=== PATIENT | female | born 1955 | race Caucasian/White ===

== ENCOUNTER → 2017-12-23 | Outpatient (CLI) | payer MEDICARE ==
--- NOTE | 2017-12-24 17:10 | PE ---
EXAMINATION TYPE: PET CT fusion whole body DATE OF EXAM: 12/23/2017 COMPARISON: CT chest abdomen pelvis 06/14/2017, MRI brain 06/13/2017, Prior PET/CT: None HISTORY: Melanoma left trunk under breast TECHNIQUE: Following the intravenous administration of 14.763 mCi of F-18 FDG, whole body images are performed from the skull base to the midthigh. Images are reviewed on the computer in the coronal, axial, and sagittal planes. Reconstructed rotating images are created on independent workstation and reviewed on the computer. A localization and attenuation correction CT is performed in conjunction with the PET scan. DLP: 469.24 and 132.98 mGycm SCAN: Subsequent Blood glucose: 159 mg/dL Average Mediastinum SUV: 1.66 Average Liver SUV: 1.98 FINDINGS: Brain: The rotating images there is some radiotracer accumulation in the region of the medial inferio r occipital lobes. NECK: No abnormal uptake THORAX: No abnormal uptake. Suspicious subcutaneous uptake in the region of the inferior thorax in th e region of the left breast which is the location of the patient's primary is not identified. ABDOMEN: No abnormal uptake PELVIS: No abnormal uptake Legs: No abnormal uptake OSSEOUS STRUCTURES: No abnormal uptake LOCALIZATION CT: There is moderate fatty infiltration of the liver. Hepatomegaly is present. CT of th e brain is visualized appears normal. The ascending thoracic aorta at the level the main pulmonary ar rachel is 3.3 cm. The main pulmonary artery the bifurcation is 2.4 cm. Shotty lymphadenopathy is within the mediastinum COMPARISON: Uptake within the reference lymph node in the abdomen is not enlarged by CT criteria kaila ures 1.16 SUV. Suspicious changes corresponding to the uptake on the PET scan within the occipital re gions is not evident on the MRI. IMPRESSION: 1. No suspicious uptake to suggest metastatic disease. 2. Some mild asymmetric activity within the occipital regions of the brain may be related to normal b rain activity during the time of the injection.
== END | disposition home or self-care (01) ==
LOC: RADPETMAIN 12:30
PROVIDERS: ATTEND Internal Medicine Hematology & Oncology
DX: C43.59 Malignant melanoma of other part of trunk (principal); R93.0 Abnormal findings on diagnostic imaging of skull and head, not elsewhere classified
CPT/HCPCS: 78816; A9552

== ENCOUNTER 2018-01-25 08:42 | Inpatient (IN) | payer MEDICARE ==
[2018-01-25] MEDS ORDERED: IPRATROPIUM-ALBUTEROL 3 ML NEB INHALATION STA (08:50)
[2018-01-25] MEDS ORDERED: methylPREDNISolone SOD SUCCI 125 MG/2 ML VIAL IV STA (08:50)
--- NOTE | 2018-01-25 09:09 | ED ---
General Adult HPI - General Chief complaint: Shortness of Breath Stated complaint: SOB Time Seen by Provider: 01/25/18 08:49 Source: patient, RN notes reviewed, old records reviewed Mode of arrival: wheelchair Limitations: no limitations - History of Present Illness Initial comments: This is a 8-year-old female the ER for evaluation. Patient presents for evaluation regards to difficulty breathing. Patient is transferred to care for evaluation by oncology. They state patient receives going through chemotherapy could cause shortness of breath. Patient states she's had a few days of shortness of breath was scheduled for chest x-ray was unable to get the chest x- ray blood presented to her doctor's office and sent to ER for further evaluation. Denies any specific pain - Related Data Home Medications Medication Instructions Recorded Confirmed ALPRAZolam [Xanax] 2 mg PO TID PRN 11/15/17 01/25/18 Digoxin 250 mcg PO DAILY 11/15/17 01/25/18 Escitalopram [Lexapro] 20 mg PO DAILY 11/15/17 01/25/18 HYDROcodone/APAP 5-325MG [[place] 1 tab PO Q6HR PRN 11/15/17 01/25/18 5-325] L.acidoph,Paracasei, B.lactis 1 cap PO DAILY 11/15/17 01/25/18 [Probiotic] Multivitamins, Thera [Multivitamin 1 tab PO DAILY 11/15/17 01/25/18 (formulary)] Temazepam [Restoril] 15 mg PO HS 11/15/17 01/25/18 Calcium Carbonate/Vitamin D3 1 tab PO DAILY 01/25/18 01/25/18 [Calcium 600-Vit D3 200 Tablet] Hydrocortisone Cream 1 applic TOPICAL BID 01/25/18 01/25/18 [Hydrocortisone 2.5% Cream] Magnesium 200 mg PO DAILY 01/25/18 01/25/18 Potassium 99 mg PO DAILY 01/25/18 01/25/18 Turmeric Root Extract [Turmeric] 500 mg PO DAILY 01/25/18 01/25/18 Ubidecarenone [Co Q-10] 100 mg PO DAILY 01/25/18 01/25/18 Allergies Allergy/AdvReac Type Severity Reaction Status Date / Time adhesive tape Allergy skin tear Verified 01/25/18 09:18 codeine Allergy Nausea Verified 01/25/18 09:18 morphine Allergy Nausea Verified 01/25/18 09:18 Review of Systems ROS Statement: Those systems with pertinent positive or pertinent negative responses have been documented in the HPI. ROS Other: All systems not noted in ROS Statement are negative. Past Medical History Past Medical History: Cancer, Fibromyalgia, Osteoarthritis (OA), Skin Disorder Additional Past Medical History / Comment(s): hx migraine, irregular heat beat, blood in stool, melanoma, hx skin cancer History of Any Multi-Drug Resistant Organisms: None Reported Past Surgical History: Orthopedic Surgery, Tubal Ligation Additional Past Surgical History / Comment(s): skin cancer removed from back, melanoma removed from under left breast, sinus surgery, tow donor bones in neck , key carpal tunnel, left rotator cuff, infusaport to right chest Past Anesthesia/Blood Transfusion Reactions: Motion Sickness Past Psychological History: Depression Smoking Status: Former smoker - Past Family History Father Family Medical History: Cancer General Exam Limitations: no limitations General appearance: alert, in no apparent distress Head exam: Present: atraumatic, normocephalic, normal inspection Eye exam: Present: normal appearance, PERRL, EOMI. Absent: scleral icterus, conjunctival injection, periorbital swelling ENT exam: Present: normal exam, mucous membranes moist Neck exam: Present: normal inspection. Absent: tenderness, meningismus, lymphadenopathy Respiratory exam: Present: normal lung sounds bilaterally, wheezes, decreased breath sounds, prolonged expiratory. Absent: respiratory distress, rales, rhonchi, stridor Cardiovascular Exam: Present: regular rate, normal rhythm, normal heart sounds. Absent: systolic murmur, diastolic murmur, rubs, gallop, clicks GI/Abdominal exam: Present: soft, normal bowel sounds. Absent: distended, tenderness, guarding, rebound, rigid Extremities exam: Present: normal inspection, full ROM, normal capillary refill. Absent: tenderness, pedal edema, joint swelling, calf tenderness Back exam: Present: normal inspection Neurological exam: Present: alert, oriented X3, CN II-XII intact Psychiatric exam: Present: normal affect, normal mood Skin exam: Present: warm, dry, intact, normal color. Absent: rash Course Vital Signs 01/25/18 01/25/18 01/25/18 08:49 09:32 09:46 Temperature 98.2 F Pulse Rate 93 87 90 Respiratory 22 20 Rate Blood Pressure 137/66 O2 Sat by Pulse 92 L Oximetry - Reevaluation(s) Reevaluation #1: 01/25/18 09:50 Spoke with patient's oncologist, aware patient's medication and treatment, low pulse ox in office Reevaluation #2: 01/25/18 11:21 Patient again with mild improvement in breathing treatment, diffuse pain EKG Findings - EKG Comments: EKG Findings:: EKG shows sinus rhythm rate of 94, PA 14, QRS 94, QTc 465 Medical Decision Making - Medical Decision Making 62 female the ER for evaluation of shortness of breath. Patient undergoing chemo treatment currently. Bilateral pleural effusion currently. Patient to be admitted for evaluation regarding symptomatic effusion. Hypoxia. - Lab Data Result diagrams: 01/25/18 09:20 01/25/18 09:20 Lab Results 01/25/18 01/25/18 01/25/18 Range/Units 09:20 09:20 09:20 WBC 8.5 (3.8-10.6) k/uL RBC 4.75 (3.80-5.40) m/uL Hgb 15.0 (11.4-16.0) gm/dL Hct 46.7 H (34.0-46.0) % MCV 98.3 D (80.0-100.0) fL MCH 31.6 (25.0-35.0) pg MCHC 32.1 (31.0-37.0) g/dL RDW 18.0 H (11.5-15.5) % Plt Count 290 (150-450) k/uL Neutrophils % (Manual) 56 % Lymphocytes % (Manual) 11 % Monocytes % (Manual) 19 % Eosinophils % (Manual) 14 % Neutrophils # (Manual) 4.76 (1.3-7.7) k/uL Lymphocytes # (Manual) 0.94 L (1.0-4.8) k/uL Monocytes # (Manual) 1.62 H (0-1.0) k/uL Eosinophils # (Manual) 1.19 H (0-0.7) k/uL Nucleated RBCs 0 (0-0) /100 WBC Manual Slide Review Performed Hypochromasia Slight Poikilocytosis (manual Present Anisocytosis Slight Macrocytosis Slight Target Cells Present PT (9.0-12.0) sec INR (<1.2) APTT (22.0-30.0) sec D-Dimer (<0.60) mg/L FEU Sodium 138 (137-145) mmol/L Potassium 3.7 (3.5-5.1) mmol/L Chloride 102 (98-107) mmol/L Carbon Dioxide 29 (22-30) mmol/L Anion Gap 7 mmol/L BUN 14 (7-17) mg/dL Creatinine 0.58 (0.52-1.04) mg/dL Est GFR (CKD-EPI)AfAm >90 (>60 ml/min/1.73 sqM) Est GFR (CKD-EPI)NonAf >90 (>60 ml/min/1.73 sqM) Glucose 91 (74-99) mg/dL Calcium 8.9 (8.4-10.2) mg/dL Magnesium 2.2 (1.6-2.3) mg/dL Total Bilirubin 14.5 H (0.2-1.3) mg/dL AST 1964 H (14-36) U/L ALT 260 H (9-52) U/L Alkaline Phosphatase 496 H (38-126) U/L Total Creatine Kinase 65 (30-135) U/L CK-MB (CK-2) 2.8 H* (0.0-2.4) ng/mL CK-MB (CK-2) Rel Index 4.3 Troponin I 0.014 (0.000-0.034) ng/mL NT-Pro-B Natriuret Pep pg/mL Total Protein 6.4 (6.3-8.2) g/dL Albumin 2.7 L (3.5-5.0) g/dL 01/25/18 01/25/18 Range/Units 09:20 09:20 WBC (3.8-10.6) k/uL RBC (3.80-5.40) m/uL Hgb (11.4-16.0) gm/dL Hct (34.0-46.0) % MCV (80.0-100.0) fL MCH (25.0-35.0) pg MCHC (31.0-37.0) g/dL RDW (11.5-15.5) % Plt Count (150-450) k/uL Neutrophils % (Manual) % Lymphocytes % (Manual) % Monocytes % (Manual) % Eosinophils % (Manual) % Neutrophils # (Manual) (1.3-7.7) k/uL Lymphocytes # (Manual) (1.0-4.8) k/uL Monocytes # (Manual) (0-1.0) k/uL Eosinophils # (Manual) (0-0.7) k/uL Nucleated RBCs (0-0) /100 WBC Manual Slide Review Hypochromasia Poikilocytosis (manual Anisocytosis Macrocytosis Target Cells PT 16.5 H (9.0-12.0) sec INR 1.8 H (<1.2) APTT 74.7 H (22.0-30.0) sec D-Dimer 2.98 H (<0.60) mg/L FEU Sodium (137-145) mmol/L Potassium (3.5-5.1) mmol/L Chloride (98-107) mmol/L Carbon Dioxide (22-30) mmol/L Anion Gap mmol/L BUN (7-17) mg/dL Creatinine (0.52-1.04) mg/dL Est GFR (CKD-EPI)AfAm (>60 ml/min/1.73 sqM) Est GFR (CKD-EPI)NonAf (>60 ml/min/1.73 sqM) Glucose (74-99) mg/dL Calcium (8.4-10.2) mg/dL Magnesium (1.6-2.3) mg/dL Total Bilirubin (0.2-1.3) mg/dL AST (14-36) U/L ALT (9-52) U/L Alkaline Phosphatase (38-126) U/L Total Creatine Kinase (30-135) U/L CK-MB (CK-2) (0.0-2.4) ng/mL CK-MB (CK-2) Rel Index Troponin I (0.000-0.034) ng/mL NT-Pro-B Natriuret Pep 124 pg/mL Total Protein (6.3-8.2) g/dL Albumin (3.5-5.0) g/dL - Radiology Data Radiology results: report reviewed (CTA chest shows no PE, positive bilateral pleural effusions. No pneumonia), image reviewed Disposition Clinical Impression: Bilateral pleural effusion, Hypoxia Disposition: ADMITTED IP TO THIS HOSP Condition: Fair Is patient prescribed a controlled substance at d/c from ED?: No Referrals: Gonzales Huerta MD [Primary Care Provider] - 1-2 days
[2018-01-25 09:43] LABS: Anisocytosis Slight; HCT 46.7 % (34.0-46.0); Hypochromasia Slight; MCH 31.6 pg (25.0-35.0); MCHC 32.1 g/dL (31.0-37.0); Macrocytosis Slight; Mean Platelet Volume 7.9; Platelet Count 290 k/uL (150-450); RBC 4.75 m/uL (3.80-5.40); WBC 8.5 k/uL (3.8-10.6)
[2018-01-25 09:49] LABS: INR 1.8 (<1.2); Prothrombin Time 16.5 sec (9.0-12.0)
[2018-01-25 09:51] LABS: MCV 98.3 fL (80.0-100.0)
[2018-01-25 09:57] LABS: ALT 260 U/L (9-52); Albumin 2.7 g/dL (3.5-5.0); Alkaline Phosphatase 496 U/L (38-126); Anion Gap 7 mmol/L; Blood Urea Nitrogen 14 mg/dL (7-17); Calcium 8.9 mg/dL (8.4-10.2); Carbon Dioxide 29 mmol/L (22-30); Chloride 102 mmol/L (98-107); Glucose 91 mg/dL (74-99); Magnesium 2.2 mg/dL (1.6-2.3); Potassium 3.7 mmol/L (3.5-5.1); Sodium 138 mmol/L (137-145); Total Bilirubin 14.5 mg/dL (0.2-1.3); Total Protein 6.4 g/dL (6.3-8.2)
[2018-01-25 10:09] LABS: D-Dimer 2.98 mg/L FEU (<0.60); Partial Thromboplastin Time 74.7 sec (22.0-30.0)
[2018-01-25 10:15] LABS: Eosinophils # (M) 1.19 k/uL (0-0.7); Lymphocytes # (M) 0.94 k/uL (1.0-4.8); Monocytes # (M) 1.62 k/uL (0-1.0); Neutrophils # (M) 4.76 k/uL (1.3-7.7); Neutrophils % (M) 56 %; Nucleated Red Blood Cells 0 /100 WBC (0-0); Target Cells Present; Total Cells Counted 100
[2018-01-25 10:16] LABS: Poikilocytosis (M) Present
[2018-01-25 10:20] LABS: Troponin I 0.014 ng/mL (0.000-0.034)
[2018-01-25 10:25] LABS: Creatine Kinase MB 2.8 ng/mL (0.0-2.4)
[2018-01-25 10:44] LABS: AST 1964 U/L (14-36)
[2018-01-25] MEDS ORDERED: HYDROmorphone 1 MG/ML 1 ML SYRINGE IVP PRN (10:49)
[2018-01-25] MEDS ORDERED: HYDROmorphone 1 MG/ML 1 ML SYRINGE IVP STA (10:49)
--- NOTE | 2018-01-25 11:07 | CT ---
EXAMINATION TYPE: CT angio chest DATE OF EXAM: 01/25/2018 COMPARISON: 06/14/2017 HISTORY: Shortness of breath and cough CT DLP: 348.8 mGycm. Automated Exposure Control for Dose Reduction was Utilized. CONTRAST: CTA scan of the thorax is performed with IV Contrast, patient injected with 100 mL of Isovue 370, pul monary embolism protocol. MIP Images are created on CT scanner and reviewed. FINDINGS: LUNGS: There is a moderate to large right and a moderate left pleural effusion with associated enhanc ing compressive atelectasis. No findings suspicious for pneumonia. There is some respiratory artifact slightly limiting evaluation. A 3 mm subcentimeter subpleural left upper lobe pulmonary nodule is se en in series 5 image 22 and appears new from the prior. Additional 3 mm solid subpleural lingular pul monary nodule on image 92 also appears new from the prior. MEDIASTINUM: Incidental note of a normal variant bovine aortic arch. Mild calcific atheromatous mata es of the thoracic aorta. Ascending thoracic aorta is within normal limits of size as the main pulmon tran artery. No central or segmental filling defects are seen to suggest pulmonary emboli. Subsegmenta l branches to the bilateral lower lobes are obscured as it blends into the adjacent atelectasis. There is interval development of mediastinal adenopathy in comparison to the prior with the largest l ymph nodes in the subcarinal space measuring 1.0 cm, within the right suprahilar region measuring 1.5 x 2.7 cm, within the right paratracheal space measuring 1.1 cm, and within the left infrahilar regio n measuring 20 cm. No pericardial effusion. No cardiomegaly. No significant reflux of contrast into t he inferior vena cava or hepatic veins. Right-sided Mediport is noted, newly placed from the prior. OTHER: There is a cirrhotic morphology of the liver with surrounding partially visualized at least mi ld volume ascites. Enhancement of the liver is patchy and could relate to underlying hepatocellular d isease although underlying mass is possible. Anterior cervical fusion device is partially visualized. Postsurgical changes are seen in the left breast from the known site of melanoma. IMPRESSION: 1. No evidence of central or segmental pulmonary embolus. No subsegmental pulmonary embolus of the ri ght upper or left upper lobes. Subsegmental branches to the lower lobes are obscured by adjacent atel ectasis. 2. Interval development of moderate to large right and moderate left pleural effusions with associate d atelectasis. No findings concerning for pneumonia. 3. Interval development of mediastinal adenopathy, possibly reactive although new left upper lobe and lingular subcentimeter pulmonary nodules are now seen that should be reevaluated after resolution of the pleural effusions. 3. Partially visualized hepatocellular disease and at least mild volume abdominal ascites.
--- NOTE | 2018-01-25 11:40 | XR ---
EXAMINATION TYPE: XR chest 1V portable DATE OF EXAM: 01/25/2018 COMPARISON: Chest CT same date HISTORY: Shortness of breath TECHNIQUE: Single frontal view of the chest is obtained. FINDINGS: Bilateral pleural effusions are noted. There is associated atelectasis. Heart is obscured. No evident pneumothorax. Right-sided jugular central venous catheter shows the distal tip coursing t owards the cavoatrial junction level. Patient is post anterior cervical fusion and discectomy in the lower cervical spine, cervical thoracic level. Surgical clips over the left axilla. IMPRESSION: Bilateral pleural effusions and associated atelectasis, correlate to exclude pneumonia
[2018-01-25] MEDS: IPRATROPIUM-ALBUTEROL 3 ML NEB INHALATION SCH ×3 (12:10→19:14)
[2018-01-25] MEDS: SODIUM CHLORIDE 0.9% 1,000 ML IV SCH (12:17)
[2018-01-25] MEDS ORDERED: methylPREDNISolone SOD SUCCI 125 MG/2 ML VIAL IV SCH (13:00)
[2018-01-25] MEDS ORDERED: ACETAMINOPHEN TAB 325 MG TAB PO PRN (15:36)
[2018-01-25] MEDS ORDERED: ONDANSETRON 4 MG/2 ML VIAL IVP PRN (15:36)
[2018-01-25] MEDS ORDERED: NALOXONE 0.4 MG/ML 1 ML VIAL IV PRN (15:36)
[2018-01-25] MEDS ORDERED: ALPRAZolam 1 MG TAB PO PRN (15:40)
--- NOTE | 2018-01-25 17:12 | XR ---
EXAMINATION TYPE: XR chest 1V portable DATE OF EXAM: 01/25/2018 COMPARISON: 01/25/2018 HISTORY: Right-sided thoracentesis TECHNIQUE: Single frontal view of the chest is obtained. FINDINGS: Heart and mediastinum are within normal limits. There is blunting of costophrenic angles. There is some infiltrate at the left lung base. There is no heart failure. There is right central beckie ous catheter with tip in the superior vena cava. IMPRESSION: Bilateral pleural effusions. Pleural fluid is decreased on the right side compared to ex am earlier today. No heart failure.
--- NOTE | 2018-01-25 17:20 | P.CNPUL ---
History of Present Illness Consult date: 01/25/18 Requesting physician: Suad Balderrama Reason for consult: dyspnea, abnormal CXR/CT Chief complaint: Shortness of breath History of present illness: This is a very pleasant 62-year-old female patient with a known history of fibromyalgia, osteoarthritis, migraines, depression. She also has a history of left submammary chest wall malignant melanoma and she had a wide excision on 09/2016. She was seen at the [facility] for further skin excision in May 2017 to lymph nodes were positive for metastatic disease. She had a negative computed tomography scan of the chest abdomen and pelvis and negative MRI of the head and he says in June 2017. She does have a 20 year pack per day smoking history but quit approximately 30 years ago. She follows here locally with Dr. Soto who states she has stage III malignant melanoma and she is receiving adjuvant immunotherapy with Nivolumab. She has a Mediport placed. She was sent here to the emergency room from their office today for complaints of increasing shortness of breath. Chest x-ray reveals bilateral pleural effusion right greater than left. CT angiogram ruled out central or segmental pulmonary embolism, subsegmental branches were obscured by atelectasis. No acute findings of pneumonia. There has been interval development of mediastinal adenopathy possibly reactive although a new left upper lobe and lingular centimeter pulmonary nodules are now present. There is hepatocellular disease and at least mild volume abdominal ascites noted. She is initially requiring 15 L partial rebreather mask to maintain O2 saturations in the 90s. White count 8.5. Hemoglobin 15.0. INR 1.8. AST 1964, ALT 260, alk phos 496. She is seen today in consultation on the regular medical floor. She is awake and alert. She does have some episodes of confusion regarding her history. She is quite dyspneic on minimal exertion. No significant cough or congestion. No fever chills or night sweats. She has been initiated on bronchodilators Review of Systems Constitutional: Reports fatigue, Reports poor appetite, Reports weight loss Eyes: denies blurred vision, denies decreased vision Ears: deny: decreased hearing Ears, nose, mouth and throat: Denies headache, Denies sore throat Cardiovascular: Reports decreased exercise tolerance, Reports dyspnea on exertion, Reports edema, Reports orthopnea, Reports shortness of breath Respiratory: Reports dyspnea, Reports pain on inspiration Gastrointestinal: Reports bloating, Reports nausea Genitourinary: Denies dysuria, Denies hematuria Musculoskeletal: Denies myalgias Integumentary: Denies pruritus, Denies rash Neurological: Denies numbness, Denies weakness Psychiatric: Reports anxiety Endocrine: Denies fatigue, Denies weight change Hematologic/Lymphatic: Reports as per HPI Allergic/Immunologic: Reports as per HPI Past Medical History Past Medical History: Cancer, Fibromyalgia, Osteoarthritis (OA), Skin Disorder Additional Past Medical History / Comment(s): Melanoma with surgery and current chemotherapy, mild edema bilateral lower legs/ankle, "irregular heart beat" but pt states never told what rhythm, lower GI bleed, benign colon polyps, constipation, cervical bulging discs with surgery, cervical and back pain/DDD, migraines in the past, falls, "my equalibrium is off." History of Any Multi-Drug Resistant Organisms: None Reported Past Surgical History: Orthopedic Surgery, Tubal Ligation Additional Past Surgical History / Comment(s): Melanoma removed from under left breast, pre skin cancer removed from back, sinus surgery, cervical surgery with donor bones, colonoscopy with 2 benign polypectomies, key carpal tunnel, left rotator cuff, infusaport to right chest Past Anesthesia/Blood Transfusion Reactions: Motion Sickness Smoking Status: Former smoker - Past Family History Father Family Medical History: Cancer Additional Family Medical History / Comment(s): Father of colon cancer at the age of 88 or 89yrs. Mother Family Medical History: Unable to Obtain Additional Family Medical History / Comment(s): Pt cannot recall mother's health hx at this time. Medications and Allergies Home Medications Medication Instructions Recorded Confirmed Type ALPRAZolam [Xanax] 2 mg PO TID PRN 11/15/17 01/25/18 History Digoxin 250 mcg PO DAILY 11/15/17 01/25/18 History Escitalopram [Lexapro] 20 mg PO DAILY 11/15/17 01/25/18 History HYDROcodone/APAP 5-325MG [[place] 1 tab PO Q6HR PRN 11/15/17 01/25/18 History 5-325] L.acidoph,Paracasei, B.lactis 1 cap PO DAILY 11/15/17 01/25/18 History [Probiotic] Multivitamins, Thera [Multivitamin 1 tab PO DAILY 11/15/17 01/25/18 History (formulary)] Temazepam [Restoril] 15 mg PO HS 11/15/17 01/25/18 History Calcium Carbonate/Vitamin D3 1 tab PO DAILY 01/25/18 01/25/18 History [Calcium 600-Vit D3 200 Tablet] Hydrocortisone Cream 1 applic TOPICAL BID 01/25/18 01/25/18 History [Hydrocortisone 2.5% Cream] Magnesium 200 mg PO DAILY 01/25/18 01/25/18 History Potassium 99 mg PO DAILY 01/25/18 01/25/18 History Turmeric Root Extract [Turmeric] 500 mg PO DAILY 01/25/18 01/25/18 History Ubidecarenone [Co Q-10] 100 mg PO DAILY 01/25/18 01/25/18 History Allergies Allergy/AdvReac Type Severity Reaction Status Date / Time adhesive tape Allergy skin tear Verified 01/25/18 09:18 codeine Allergy Nausea Verified 01/25/18 09:18 morphine Allergy Nausea Verified 01/25/18 09:18 Physical Exam Vitals: Vital Signs Temp Pulse Pulse Resp BP BP Pulse Ox 01/25/18 16:02 98.1 F 96 20 120/59 91 L 01/25/18 15:03 89 18 01/25/18 14:53 93 18 01/25/18 14:20 91 20 120/57 92 L 01/25/18 13:16 98.0 F 94 20 136/62 90 L 01/25/18 13:00 92 18 86 L 01/25/18 12:12 88 22 01/25/18 11:32 98.2 F 90 20 131/60 88 L 01/25/18 09:46 90 01/25/18 09:32 87 20 01/25/18 08:49 98.2 F 93 22 137/66 92 L Intake and Output 01/25/18 01/25/18 01/25/18 06:59 14:59 22:59 Other: Weight 87.4 kg - Constitutional General appearance: cooperative, mild distress, obese - EENT Eyes: EOMI, PERRLA, scleral icterus ENT: hearing grossly normal Ears: bilateral: normal - Neck Neck: lymphadenopathy Carotids: bilateral: upstroke normal Thyroid: bilateral: normal size - Respiratory Respiratory: bilateral: diminished, dullness, rales - Cardiovascular Rhythm: regular Heart sounds: normal: S1, S2 - Gastrointestinal General gastrointestinal: distended, normal bowel sounds, organomegaly - Integumentary Integumentary: jaundiced, normal - Neurologic Neurologic: CNII-XII intact - Musculoskeletal Musculoskeletal: generalized weakness - Psychiatric Psychiatric: A&O x's 3, appropriate affect, intact judgment & insight Results - Laboratory Findings CBC and BMP: 01/25/18 09:20 01/25/18 09:20 PT/INR, D-dimer PT 16.5 sec (9.0-12.0) H 01/25/18 09:20 INR 1.8 (<1.2) H 01/25/18 09:20 D-Dimer 2.98 mg/L FEU (<0.60) H 01/25/18 09:20 Abnormal lab findings: Abnormal Labs 01/25/18 01/25/18 01/25/18 09:20 09:20 09:20 Hct 46.7 H RDW 18.0 H Lymphocytes # (Manual) 0.94 L Monocytes # (Manual) 1.62 H Eosinophils # (Manual) 1.19 H PT INR APTT D-Dimer Total Bilirubin 14.5 H AST 1964 H ALT 260 H Alkaline Phosphatase 496 H CK-MB (CK-2) 2.8 H* Albumin 2.7 L 01/25/18 09:20 Hct RDW Lymphocytes # (Manual) Monocytes # (Manual) Eosinophils # (Manual) PT 16.5 H INR 1.8 H APTT 74.7 H D-Dimer 2.98 H Total Bilirubin AST ALT Alkaline Phosphatase CK-MB (CK-2) Albumin - Diagnostic Findings Chest x-ray: image reviewed CT scan - chest: image reviewed Assessment and Plan Assessment: Impression: #1 Acute hypoxic respiratory failure secondary to large bilateral pleural effusions. Status post right-sided thoracentesis with 1650 ML's of dark turbulent fluid removed. Possible metastasis. Cytology pending. #2 Mediastinal adenopathy. #3 Left submammary chest wall melanoma status post resection with positive lymph nodes. Stage III malignant melanoma currently receiving adjuvant immunotherapy with Nivolumab. #4 Elevated LFTs with mild ascites and coagulopathy. #5 Fibromyalgia. #6 History of migraines. #7 History of smoking. #8 Anxiety/depression Plan: The patient was seen and evaluated by Dr. Perez. Chest x-ray, computed tomography scan, labs all reviewed. He did go ahead and perform a right-sided thoracentesis with 1650 MLS of dark turbulent fluid removed. Sent for fluid analysis and cytology. We will titrate down her FiO2 as tolerated. Continue bronchodilators. We will add Lasix 20 mg by mouth twice a day. Lovenox for DVT prophylaxis. Postthoracentesis chest x-ray showed significant improvement in the right chest. We will increase her activity as tolerated. We'll continue to follow and make further recommendations based on her clinical status. I, the cosigning physician, performed a history & physical examination of the patient. Lungs sounds with bilateral crackles in diminished in the bases right greater than left. Maintaining good O2 saturations in the 90s on 4 L/m per nasal cannula.. I discussed the assessment and plan of care with my nurse practitioner, Lissette Candelaria. I attest to the above consultation as dictated by her. Time with Patient: Greater than 30
[2018-01-25 18:47] LABS: Appearance,BF Cloudy; Color,BF Yellow
[2018-01-25] MEDS: HYDROcodone/APAP 5-325MG 1 EACH TAB PO PRN (20:26)
--- NOTE | 2018-01-25 20:28 | PCN ---
PROCEDURE NOTE OPERATIVE REPORT: Right-sided thoracentesis. PREOPERATIVE DIAGNOSIS: Bilateral pleural effusion. POSTOPERATIVE DIAGNOSIS: Bilateral pleural effusion. ANESTHESIA USED: 5 mL of 1% lidocaine. PROCEDURE: The patient was prepared in a sterile fashion and drapes were applied. The area below the right scapula was prepared in a sterile fashion and drapes were applied. At the level of the 8th intercostal space and tip of the scapula, the area was locally anesthetized. Then a standard 26-gauge needle was inserted into the pleural space and advanced into the disc space until the fluid was localized. The fluid was noted to be yellow in color. Then a small tiny incision was made at the same site, a standard thoracentesis catheter and needle were used, the needle was inserted at the same site, advanced into the pleural space and once the fluid was obtained, the catheter was advanced out of the needle into the pleural space, and the needle was pulled out of the pleural space. Roughly 1600 mL of yellow icteric-looking fluid was removed from the right pleural space. The procedure was well tolerated, no evidence of any immediate complications, the fluid was sent for different diagnostic studies, and chest x-ray was ordered postoperatively. MMODL / IJN: [id number] /
[2018-01-25] MEDS ORDERED: TEMAZEPAM 15 MG CAP PO SCH (21:00)
[2018-01-25 21:05] LABS: Nucleated Cells, Body Fluid 140 /uL; RBC, Body Fluid 1180 /uL
[2018-01-25 21:11] LABS: Mononuclear WBC,Body Fluid 94 %; Total Cells Counted,Body Fluid 100
[2018-01-25] MEDS: TRIAMCINOLONE 0.1% CREAM 80 GM TUBE TOPICAL SCH (21:15)
[2018-01-26 00:51] LABS: Total Protein, Body Fluid 2500 mg/dL
[2018-01-26 06:38] LABS: Anisocytosis Slight; Basophils % (A) 0 %; Eosinophils % (A) 0 %; HCT 45.2 % (34.0-46.0); HGB 14.2 gm/dL (11.4-16.0); Hypochromasia Moderate; Lymphocytes # (A) 1.5 k/uL (1.0-4.8); Lymphocytes % (A) 27 %; MCH 31.1 pg (25.0-35.0); MCHC 31.3 g/dL (31.0-37.0); MCV 99.2 fL (80.0-100.0); Macrocytosis Slight; Mean Platelet Volume 7.8; Monocytes # (A) 0.4 k/uL (0-1.0); Monocytes % (A) 7 %; Neutrophils # (A) 3.4 k/uL (1.3-7.7); Neutrophils % (A) 62 %; Platelet Count 307 k/uL (150-450); RBC 4.55 m/uL (3.80-5.40); RDW 18.2 % (11.5-15.5); WBC 5.4 k/uL (3.8-10.6)
[2018-01-26 06:44] LABS: Anion Gap 3 mmol/L; Blood Urea Nitrogen 16 mg/dL (7-17); Calcium 8.8 mg/dL (8.4-10.2); Carbon Dioxide 30 mmol/L (22-30); Chloride 103 mmol/L (98-107); Glucose 157 mg/dL (74-99); Magnesium 2.6 mg/dL (1.6-2.3); Phosphorus 3.1 mg/dL (2.5-4.5); Potassium 4.2 mmol/L (3.5-5.1); Sodium 136 mmol/L (137-145)
[2018-01-26 08:00] LABS: INR 1.9 (<1.2)
[2018-01-26 08:20] LABS: ALT 214 U/L (9-52); Albumin 2.8 g/dL (3.5-5.0); Alkaline Phosphatase 463 U/L (38-126); Anion Gap 6 mmol/L; Blood Urea Nitrogen 17 mg/dL (7-17); Carbon Dioxide 29 mmol/L (22-30); Chloride 103 mmol/L (98-107); Glucose 156 mg/dL (74-99); Potassium 4.4 mmol/L (3.5-5.1); Sodium 138 mmol/L (137-145); Total Bilirubin 14.7 mg/dL (0.2-1.3); Total Protein 6.7 g/dL (6.3-8.2)
[2018-01-26 08:32] LABS: AST 1366 U/L (14-36)
[2018-01-26] MEDS: IPRATROPIUM-ALBUTEROL 3 ML NEB INHALATION SCH ×4 (08:53→20:11)
--- NOTE | 2018-01-26 09:24 | P.HPIM ---
History of Present Illness H&P Date: 01/25/18 Chief Complaint: Weakness and shortness of breath 62-year-old female with history of metastatic melanoma presented to the emergency department because of worsening weakness, lack of energy as well as shortness of breath. Patient history goes back to March 2017 when she was found to have a left submammary chest wall nodule that was biopsied and was found to have Luis Alberto's level V malignant melanoma. Subsequently she had a wide excision in of the lesion was 4 mm depth, all margins were negative. After that she was referred to [facility] where she had further skin excision in , lymph node biopsy at that time showed metastasis disease. Subsequently she had axillary lymph node dissection at [facility] in that revealed no further metastatic melanoma in all 29 lymph nodes tested. In she had negative computed tomography scan of the chest/abdomen and pelvis. He also had negative MRI of the brain.. In addition to weakness and shortness of breath she mentioned intermittent fevers and chills, nausea, diarrhea as well as diffuse generalized aches all over her body including the legs, the neck, the chest as well as abdomen. She denied hematemesis or hematochezia. Patient is currently getting immune therapy with Nivolumab, received 3 doses so far, last one was 2 weeks ago. In the emergency department she was found to be hypoxic with O2 saturations down in the 80s. She was placed in the 100% nonrebreather mask and was subsequently admitted to the hospital for further evaluation and management. Review of Systems 12 point review of system performed , negative except for HPI Past Medical History Past Medical History: Cancer, Fibromyalgia, Osteoarthritis (OA), Skin Disorder Additional Past Medical History / Comment(s): Melanoma with surgery and current chemotherapy, mild edema bilateral lower legs/ankle, "irregular heart beat" but pt states never told what rhythm, lower GI bleed, benign colon polyps, constipation, cervical bulging discs with surgery, cervical and back pain/DDD, migraines in the past, falls, "my equalibrium is off." History of Any Multi-Drug Resistant Organisms: None Reported Past Surgical History: Orthopedic Surgery, Tubal Ligation Additional Past Surgical History / Comment(s): Melanoma removed from under left breast, pre skin cancer removed from back, sinus surgery, cervical surgery with donor bones, colonoscopy with 2 benign polypectomies, key carpal tunnel, left rotator cuff, infusaport to right chest Past Anesthesia/Blood Transfusion Reactions: Motion Sickness Smoking Status: Former smoker - Past Family History Father Family Medical History: Cancer Additional Family Medical History / Comment(s): Father of colon cancer at the age of 88 or 89yrs. Mother Family Medical History: Unable to Obtain Additional Family Medical History / Comment(s): Pt cannot recall mother's health hx at this time. Medications and Allergies Home Medications Medication Instructions Recorded Confirmed Type ALPRAZolam [Xanax] 2 mg PO TID PRN 11/15/17 01/25/18 History Digoxin 250 mcg PO DAILY 11/15/17 01/25/18 History Escitalopram [Lexapro] 20 mg PO DAILY 11/15/17 01/25/18 History HYDROcodone/APAP 5-325MG [[place] 1 tab PO Q6HR PRN 11/15/17 01/25/18 History 5-325] L.acidoph,Paracasei, B.lactis 1 cap PO DAILY 11/15/17 01/25/18 History [Probiotic] Multivitamins, Thera [Multivitamin 1 tab PO DAILY 11/15/17 01/25/18 History (formulary)] Temazepam [Restoril] 15 mg PO HS 11/15/17 01/25/18 History Calcium Carbonate/Vitamin D3 1 tab PO DAILY 01/25/18 01/25/18 History [Calcium 600-Vit D3 200 Tablet] Hydrocortisone Cream 1 applic TOPICAL BID 01/25/18 01/25/18 History [Hydrocortisone 2.5% Cream] Magnesium 200 mg PO DAILY 01/25/18 01/25/18 History Potassium 99 mg PO DAILY 01/25/18 01/25/18 History Turmeric Root Extract [Turmeric] 500 mg PO DAILY 01/25/18 01/25/18 History Ubidecarenone [Co Q-10] 100 mg PO DAILY 01/25/18 01/25/18 History Allergies Allergy/AdvReac Type Severity Reaction Status Date / Time adhesive tape Allergy skin tear Verified 01/25/18 09:18 codeine Allergy Nausea Verified 01/25/18 09:18 morphine Allergy Nausea Verified 01/25/18 09:18 Physical Exam Vitals: Vital Signs Temp Pulse Resp BP Pulse Ox 01/25/18 15:03 89 18 01/25/18 14:53 93 18 01/25/18 14:20 91 20 120/57 92 L 01/25/18 13:16 98.0 F 94 20 136/62 90 L 01/25/18 13:00 92 18 86 L 01/25/18 12:12 88 22 01/25/18 11:32 98.2 F 90 20 131/60 88 L 01/25/18 09:46 90 01/25/18 09:32 87 20 01/25/18 08:49 98.2 F 93 22 137/66 92 L Intake and Output 01/25/18 01/25/18 01/25/18 06:59 14:59 22:59 Other: Weight 87.4 kg Constitutional: In [id number] respiratory distress, conversant, pleasant Eyes: Icteric sclerae, moist conjunctiva, no lid-lag, PERRLA, ENMT: Oropharynx clear, no erythema, exudates Neck: Supple, FROM, no masses, or JVD, No carotid bruits, No thyromegaly Lungs: Diminished breath sounds at the basis, Clear to percussion, Normal respiratory effort, no accessory muscle use Cardiovascular: Heart regular in rate and rhythm, No murmurs, gallops, or rubs, 1+ peripheral edema Abdominal: Soft, Nontender, no guarding, rebound or rigidity, Normoactive bowel sounds, No hepatomegaly, No splenomegaly, No palpable mass Skin: Normal temperature, tone, texture, turgor, no induration, No subcutaneous nodules, No rash, lesions, No ulcers Extremities: No digital cyanosis, No clubbing, Pedal pulses intact and symmetrical, Radial pulses intact and symmetrical, No calf tenderness Neuro: Muscles Strength 5/5 in all 4 extremities, Sensation to light touch grossly present throughout, Cranial nerves II-XII grossly intact, no focal sensory deficits Results CBC & Chem 7: 01/25/18 09:20 01/25/18 09:20 Labs: Abnormal Lab Results - Last 24 Hours (Table) 01/25/18 01/25/18 01/25/18 Range/Units 09:20 09:20 09:20 Hct 46.7 H (34.0-46.0) % RDW 18.0 H (11.5-15.5) % Lymphocytes # (Manual) 0.94 L (1.0-4.8) k/uL Monocytes # (Manual) 1.62 H (0-1.0) k/uL Eosinophils # (Manual) 1.19 H (0-0.7) k/uL PT (9.0-12.0) sec INR (<1.2) APTT (22.0-30.0) sec D-Dimer (<0.60) mg/L FEU Total Bilirubin 14.5 H (0.2-1.3) mg/dL AST 1964 H (14-36) U/L ALT 260 H (9-52) U/L Alkaline Phosphatase 496 H (38-126) U/L CK-MB (CK-2) 2.8 H* (0.0-2.4) ng/mL Albumin 2.7 L (3.5-5.0) g/dL 01/25/18 Range/Units 09:20 Hct (34.0-46.0) % RDW (11.5-15.5) % Lymphocytes # (Manual) (1.0-4.8) k/uL Monocytes # (Manual) (0-1.0) k/uL Eosinophils # (Manual) (0-0.7) k/uL PT 16.5 H (9.0-12.0) sec INR 1.8 H (<1.2) APTT 74.7 H (22.0-30.0) sec D-Dimer 2.98 H (<0.60) mg/L FEU Total Bilirubin (0.2-1.3) mg/dL AST (14-36) U/L ALT (9-52) U/L Alkaline Phosphatase (38-126) U/L CK-MB (CK-2) (0.0-2.4) ng/mL Albumin (3.5-5.0) g/dL Thrombosis Risk Factor Assmnt - Choose All That Apply Any of the Below Risk Factors Present?: Yes Each Factor Represents 1 point: Age 41-60 years, Obesity (BMI >25) Other Risk Factors: Yes Each Risk Factor Represents 2 Points: Malignancy Other congenital or acquired thrombophilia - If yes, enter type in comment: No Thrombosis Risk Factor Assessment Total Risk Factor Score: 4 Thrombosis Risk Factor Assessment Level: Moderate Risk Assessment and Plan Plan: Acute hypoxic respiratory failure Computed tomography scan of the chest reviewed, likely secondary to bilateral pleural effusions Consult pulmonary for possible thoracentesis versus Pleurx catheter placement. O2 supplementation Duonebs. Transfer to selective care New-onset jaundice Bilirubin currently 14 Consult GI Obtain records from PCP and cancer office Likely need computed tomography scan of the abdomen and pelvis if no one was obtained recently Metastatic melanoma Consult oncology Hold off of any form of anti cancer treatment for now. Fibromyalgia, Osteoarthritis (OA), "irregular heart beat", history of lower GI bleed, cervical bulging discs with surgery, cervical and back pain/DDD, migraines in the past, falls, Stable Resume meds End-of-life care Discussed with patient CODE STATUS, she does not want anything done if her disease is end stage and nothing can be done. Otherwise she wants treatment. To come up with a final decision she wants to discuss it with her . DVT prophylaxis Subcu Lovenox
[2018-01-26] MEDS ORDERED: THIAMINE 100 MG/ML 2 ML VIAL IM STA (09:26)
[2018-01-26] MEDS ORDERED: LORazepam 2 MG/ML INJ IV PRN ×3 (09:26)
--- NOTE | 2018-01-26 09:37 | P.PN ---
Subjective Progress Note Date: 01/26/18 Principal diagnosis: SOB and weakness Patient is doing better today. Her breathing has improved. No chest pain. Patient admitted to me today that she has been drinking one to 2 shots of vodka almost on a daily basis over the last year. Objective - Vital Signs Vital signs: Vital Signs Temp 97.4 F L 01/26/18 04:00 Pulse 94 01/26/18 04:00 Resp 18 01/26/18 04:00 BP 126/70 01/26/18 04:00 Pulse Ox 92 L 01/26/18 04:00 Intake & Output 01/25/18 01/26/18 01/26/18 18:59 06:59 18:59 Intake Total 970 Output Total 500 Balance 470 Weight 87.4 kg 83.2 kg Intake: Intake, IV Titration 220 Amount Sodium Chloride 0.9% 1, 220 000 ml @ 20 mls/hr IV . Q24H [facility] Rx#:[id number] Oral 750 Output: Urine 500 Other: Voiding Method Toilet # Voids 2 - Labs CBC & Chem 7: 01/26/18 06:04 01/26/18 07:40 Labs: Abnormal Lab Results - Last 24 Hours (Table) 01/25/18 01/25/18 01/25/18 Range/Units 09:20 09:20 09:20 Hct 46.7 H (34.0-46.0) % RDW 18.0 H (11.5-15.5) % Lymphocytes # (Manual) 0.94 L (1.0-4.8) k/uL Monocytes # (Manual) 1.62 H (0-1.0) k/uL Eosinophils # (Manual) 1.19 H (0-0.7) k/uL PT (9.0-12.0) sec INR (<1.2) APTT (22.0-30.0) sec D-Dimer (<0.60) mg/L FEU Sodium (137-145) mmol/L Glucose (74-99) mg/dL Magnesium (1.6-2.3) mg/dL Total Bilirubin 14.5 H (0.2-1.3) mg/dL AST 1964 H (14-36) U/L ALT 260 H (9-52) U/L Alkaline Phosphatase 496 H (38-126) U/L CK-MB (CK-2) 2.8 H* (0.0-2.4) ng/mL Albumin 2.7 L (3.5-5.0) g/dL 01/25/18 01/26/18 01/26/18 Range/Units 09:20 06:04 06:04 Hct (34.0-46.0) % RDW 18.2 H (11.5-15.5) % Lymphocytes # (Manual) (1.0-4.8) k/uL Monocytes # (Manual) (0-1.0) k/uL Eosinophils # (Manual) (0-0.7) k/uL PT 16.5 H (9.0-12.0) sec INR 1.8 H (<1.2) APTT 74.7 H (22.0-30.0) sec D-Dimer 2.98 H (<0.60) mg/L FEU Sodium 136 L (137-145) mmol/L Glucose 157 H (74-99) mg/dL Magnesium 2.6 H (1.6-2.3) mg/dL Total Bilirubin (0.2-1.3) mg/dL AST (14-36) U/L ALT (9-52) U/L Alkaline Phosphatase (38-126) U/L CK-MB (CK-2) (0.0-2.4) ng/mL Albumin (3.5-5.0) g/dL 01/26/18 01/26/18 Range/Units 07:40 07:40 Hct (34.0-46.0) % RDW (11.5-15.5) % Lymphocytes # (Manual) (1.0-4.8) k/uL Monocytes # (Manual) (0-1.0) k/uL Eosinophils # (Manual) (0-0.7) k/uL PT 17.0 H (9.0-12.0) sec INR 1.9 H (<1.2) APTT (22.0-30.0) sec D-Dimer (<0.60) mg/L FEU Sodium (137-145) mmol/L Glucose 156 H (74-99) mg/dL Magnesium (1.6-2.3) mg/dL Total Bilirubin 14.7 H (0.2-1.3) mg/dL AST 1366 H (14-36) U/L ALT 214 H (9-52) U/L Alkaline Phosphatase 463 H (38-126) U/L CK-MB (CK-2) (0.0-2.4) ng/mL Albumin 2.8 L (3.5-5.0) g/dL Assessment and Plan Plan: Acute hypoxic respiratory failure Computed tomography scan of the chest reviewed, bilateral pleural effusions Status post right-sided thoracentsis with 1600 mL of fluids taken out. Pleural fluid protein over plasma protein less than 0.5, awaiting plasma LDH Pleural fluid sent for cytology--pending Continue O2 supplementation and Duonebs. New-onset jaundice, transaminitis, likely liver cirrhosis AST and ALT pattern consistent with alcohol damage Consult GI pending RUQ U/S Obtain records from PCP office, d/w community leader. Check ammonia level Metastatic melanoma Consult oncology, pending Hold off of any form of anti cancer treatment for now. Fibromyalgia, Osteoarthritis (OA), "irregular heart beat", history of lower GI bleed, cervical bulging discs with surgery, cervical and back pain/DDD, migraines in the past, falls, Stable Resume meds End-of-life care Discussed with patient CODE STATUS, she does not want anything done if her disease is end stage and nothing can be done. Otherwise she wants treatment. DVT prophylaxis Subcu Lovenox
[2018-01-26] MEDS: TRIAMCINOLONE 0.1% CREAM 80 GM TUBE TOPICAL SCH ×2 (09:45→20:45)
[2018-01-26] MEDS: MAGNESIUM OXIDE 400 MG TAB PO SCH (09:45)
[2018-01-26] MEDS: CALCIUM CARB-VIT D 500MG-200UN 1 EACH TAB PO SCH (09:45)
[2018-01-26] MEDS: ENOXAPARIN 40 MG/0.4 ML SYRINGE SQ SCH (09:45)
--- NOTE | 2018-01-26 09:45 | P.CONS ---
History of Present Illness - Reason for Consult Consult date: 01/26/18 Cirrhosis jaundice Requesting physician: Suad Balderrama - History of Present Illness 62-year-old female diagnosed with stage III malignant melanoma status post skin excision [facility] fall 2016 lymph nodes positive presently receiving Nivolumab. Admitted with increased shortness of breath chest x-ray CT reported pleural effusion status post thoracentesis cytology pending. New interval development of mediastinal adenopathy with subcentimeter pulmonary nodules as well as cirrhotic nephrology of liver. She has a history of underlying EtOH abuse recently was drinking quit 2 weeks ago. Few shots of liquor daily. New-onset of jaundice over the last few weeks. Her last cycle of chemotherapy was last month. Reports difficulty thinking collecting her thoughts over the last week. Reports mild right upper quadrant tenderness denies hematemesis but he developed fever or chills. Hemoglobin 15.0. White count 8.5. Platelet 290. INR 1.9. Total bilirubin 14.9. AST 1990. ALT 252. AP 505. BUN 14. Creatinine 0.5. No history of known liver disease or hepatitis. Previous medical records indicate a bilirubin of 2.2 on January 11. AST 1105. ALT 427. AP 335. Ultrasound abdomen pending. Review of Systems Constitutional: Denies fever, chills, sweats, weight gain, or loss. HEENT: Negative for migraines, blurred vision or loss, earaches, drainage, tinnitus, oral mucosal lesions, dysphagia, or odynophagia. CARDIAC: Negative for chest pain, arrhythmias, or palpitation. RESPIRATORY: Admitted with shortness of breath, denies hemoptysis, cough, or sputum production. GI: See HPI for pertinent findings. : Negative for hematuria, urgency, frequency, polyuria, or dysuria. GYNc: Negative vaginal discharge. MUSCULOSKELETAL: Negative for muscle aches, swelling, arthritis, and arthralgias. NEUROLOGIC: Negative for stroke or TIA. ENDOCRINE: Negative for thyroid problems. SKIN: Negative for rash or itching. PSYCHIATRIC: Negative history for depression and anxiety Past Medical History Past Medical History: Cancer, Fibromyalgia, Osteoarthritis (OA), Skin Disorder Additional Past Medical History / Comment(s): Melanoma with surgery and current chemotherapy, mild edema bilateral lower legs/ankle, "irregular heart beat" but pt states never told what rhythm, lower GI bleed, benign colon polyps, constipation, cervical bulging discs with surgery, cervical and back pain/DDD, migraines in the past, falls, "my equalibrium is off." History of Any Multi-Drug Resistant Organisms: None Reported Past Surgical History: Orthopedic Surgery, Tubal Ligation Additional Past Surgical History / Comment(s): Melanoma removed from under left breast, pre skin cancer removed from back, sinus surgery, cervical surgery with donor bones, colonoscopy with 2 benign polypectomies, key carpal tunnel, left rotator cuff, infusaport to right chest Past Anesthesia/Blood Transfusion Reactions: Motion Sickness Smoking Status: Former smoker - Past Family History Father Family Medical History: Cancer Additional Family Medical History / Comment(s): Father of colon cancer at the age of 88 or 89yrs. Mother Family Medical History: Unable to Obtain Additional Family Medical History / Comment(s): Pt cannot recall mother's health hx at this time. Medications and Allergies Home Medications Medication Instructions Recorded Confirmed Type ALPRAZolam [Xanax] 2 mg PO TID PRN 11/15/17 01/25/18 History Digoxin 250 mcg PO DAILY 11/15/17 01/25/18 History Escitalopram [Lexapro] 20 mg PO DAILY 11/15/17 01/25/18 History HYDROcodone/APAP 5-325MG [[place] 1 tab PO Q6HR PRN 11/15/17 01/25/18 History 5-325] L.acidoph,Paracasei, B.lactis 1 cap PO DAILY 11/15/17 01/25/18 History [Probiotic] Multivitamins, Thera [Multivitamin 1 tab PO DAILY 11/15/17 01/25/18 History (formulary)] Temazepam [Restoril] 15 mg PO HS 11/15/17 01/25/18 History Calcium Carbonate/Vitamin D3 1 tab PO DAILY 01/25/18 01/25/18 History [Calcium 600-Vit D3 200 Tablet] Hydrocortisone Cream 1 applic TOPICAL BID 01/25/18 01/25/18 History [Hydrocortisone 2.5% Cream] Magnesium 200 mg PO DAILY 01/25/18 01/25/18 History Potassium 99 mg PO DAILY 01/25/18 01/25/18 History Turmeric Root Extract [Turmeric] 500 mg PO DAILY 01/25/18 01/25/18 History Ubidecarenone [Co Q-10] 100 mg PO DAILY 01/25/18 01/25/18 History Allergies Allergy/AdvReac Type Severity Reaction Status Date / Time adhesive tape Allergy skin tear Verified 01/25/18 09:18 codeine Allergy Nausea Verified 01/25/18 09:18 morphine Allergy Nausea Verified 01/25/18 09:18 Physical Exam Vitals: Vital Signs Temp Pulse Pulse Resp BP BP Pulse Ox 01/26/18 04:00 97.4 F L 94 18 126/70 92 L 01/26/18 00:00 97 F L 94 18 116/58 92 L 01/25/18 20:00 97.4 F L 94 20 115/62 95 01/25/18 19:23 87 16 01/25/18 19:15 87 16 01/25/18 18:50 98.1 F 101 H 16 124/71 92 L 01/25/18 16:02 98.1 F 96 20 120/59 91 L 01/25/18 15:03 89 18 01/25/18 14:53 93 18 01/25/18 14:20 91 20 120/57 92 L 01/25/18 13:16 98.0 F 94 20 136/62 90 L 01/25/18 13:00 92 18 86 L 01/25/18 12:12 88 22 01/25/18 11:32 98.2 F 90 20 131/60 88 L 01/25/18 09:46 90 Intake and Output 01/25/18 01/26/18 01/26/18 22:59 06:59 14:59 Intake Total 450 520 Output Total 200 300 Balance 250 220 Intake: Intake, IV Titration 220 Amount Sodium Chloride 0.9% 1, 220 000 ml @ 20 mls/hr IV . Q24H [facility] Rx#:[id number] Oral 450 300 Output: Urine 200 300 Other: Voiding Method Toilet Toilet # Voids 2 Weight 83.2 kg General appearance: The patient is alert, oriented, in no acute distress. Jaundice. HET: Head is normocephalic and atraumatic. Pupils are equal and reactive. Sclerae icterus. Oropharynx is clear without lesions. Neck: Supple without lymphadenopathy. Trachea midline. Heart: S1 S2. Regular rate and rhythm. Mediport without erythema or drainage. Lungs: Diminished in bases bilaterally. Abdomen: Soft, mild right upper quadrant tenderness., nondistended with bowel sounds. No peritoneal signs. No palpable organomegaly or masses. Extremities: Normal skin color and turgor. No cyanosis, rash, ulceration, clubbing, or edema. Radial and pedal pulses are 2/4 bilaterally. Neurological: No focal deficits. Strength and sensation are grossly intact. Results CBC & Chem 7: 01/26/18 06:04 01/26/18 07:40 Labs: Abnormal Lab Results - Last 24 Hours (Table) 01/25/18 01/25/18 01/25/18 Range/Units 09:20 09:20 09:20 Hct 46.7 H (34.0-46.0) % RDW 18.0 H (11.5-15.5) % Lymphocytes # (Manual) 0.94 L (1.0-4.8) k/uL Monocytes # (Manual) 1.62 H (0-1.0) k/uL Eosinophils # (Manual) 1.19 H (0-0.7) k/uL PT (9.0-12.0) sec INR (<1.2) APTT (22.0-30.0) sec D-Dimer (<0.60) mg/L FEU Sodium (137-145) mmol/L Glucose (74-99) mg/dL Magnesium (1.6-2.3) mg/dL Total Bilirubin 14.5 H (0.2-1.3) mg/dL AST 1964 H (14-36) U/L ALT 260 H (9-52) U/L Alkaline Phosphatase 496 H (38-126) U/L CK-MB (CK-2) 2.8 H* (0.0-2.4) ng/mL Albumin 2.7 L (3.5-5.0) g/dL 01/25/18 01/26/18 01/26/18 Range/Units 09:20 06:04 06:04 Hct (34.0-46.0) % RDW 18.2 H (11.5-15.5) % Lymphocytes # (Manual) (1.0-4.8) k/uL Monocytes # (Manual) (0-1.0) k/uL Eosinophils # (Manual) (0-0.7) k/uL PT 16.5 H (9.0-12.0) sec INR 1.8 H (<1.2) APTT 74.7 H (22.0-30.0) sec D-Dimer 2.98 H (<0.60) mg/L FEU Sodium 136 L (137-145) mmol/L Glucose 157 H (74-99) mg/dL Magnesium 2.6 H (1.6-2.3) mg/dL Total Bilirubin (0.2-1.3) mg/dL AST (14-36) U/L ALT (9-52) U/L Alkaline Phosphatase (38-126) U/L CK-MB (CK-2) (0.0-2.4) ng/mL Albumin (3.5-5.0) g/dL 01/26/18 01/26/18 Range/Units 07:40 07:40 Hct (34.0-46.0) % RDW (11.5-15.5) % Lymphocytes # (Manual) (1.0-4.8) k/uL Monocytes # (Manual) (0-1.0) k/uL Eosinophils # (Manual) (0-0.7) k/uL PT 17.0 H (9.0-12.0) sec INR 1.9 H (<1.2) APTT (22.0-30.0) sec D-Dimer (<0.60) mg/L FEU Sodium (137-145) mmol/L Glucose 156 H (74-99) mg/dL Magnesium (1.6-2.3) mg/dL Total Bilirubin 14.7 H (0.2-1.3) mg/dL AST 1366 H (14-36) U/L ALT 214 H (9-52) U/L Alkaline Phosphatase 463 H (38-126) U/L CK-MB (CK-2) (0.0-2.4) ng/mL Albumin 2.8 L (3.5-5.0) g/dL CT scan - chest: report reviewed (Dr. Valdes) Assessment and Plan Assessment: Impression: 1. Shortness of breath pleural effusion status post thoracentesis. Cytology pending. 2. Stage III malignant melanoma presently on Nivolumab. 3. History of EtOH abuse with current alcohol intake quit 2 weeks ago with new onset of jaundice elevated liver enzymes. Etiology could be combination of factors including progression of metastatic melanoma with underlying alcohol liver disease component of chemotherapy medication effect cannot be entirely excluded. Biliary obstruction Budd-Chiari portal thrombus cannot be entirely excluded. 4. Coagulopathy. Recommendations: 1. MRI liver/MRCP rule out Budd-Chiari portal thrombus extrahepatic obstructive pathology. 2. AFP hepatitis screen. 3. Oncology consultation. Pulmonology following. 4. Check ammonia level. We'll follow closely with you. Thank you for this kind referral and the opportunity to participate in the care of your patient. This consultation was discussed with Dr. Valdes. The impression and plan of care have been directed as dictated.
[2018-01-26] MEDS: ESCITALOPRAM 20 MG TAB PO SCH (09:46)
[2018-01-26] MEDS: DIGOXIN 250 MCG TAB PO SCH (09:46)
[2018-01-26 10:13] LABS: Target Cells Present
[2018-01-26 10:14] LABS: Poikilocytosis (M) Present
[2018-01-26] MEDS: SODIUM CHLORIDE 0.9% 1,000 ML IV SCH (12:07)
--- NOTE | 2018-01-26 13:12 | P.CONS ---
History of Present Illness - Reason for Consult Consult date: 01/26/18 Currently on Immunotherapy Requesting physician: Vern Chisholm - Chief Complaint SOB - History of Present Illness Gia had L submammary chest wall nodule biopsy on Mar 29 2017 revealing ulcerated 8.8mm thick , Luis Alberto level V malignant Melanoma. She stated lesion present X 3-6 months and rapilly enlarging. She had wide excision on 04/11/17 revealing residual ulcerated melanoma with 4 mm depth, all margins were negative. She was refered to [facility], had further skin exicision (Negative) on 05/18/17, 2 SLNB were both involved with metastatic disease, largest 3 mm in size. She had axillary LN dissection by Dr Peres at [facility] on revealing no further metastatic melanoma in all 29 lymph nodes. The patient had negative CT Scan of CAP and MRI of head in Jun 2017 (Before dissection), feels Ok overall, denied anorexia or weight loss. BRAF was negative. She smoked 1 PPD X 20 years, quit 30 years ago, consumes 1-2 drinks/day. Fully active, on disability due to back pain. On 01/25/18 she was seen in office by Dr. Soto with complaints of increasing Shortness of breath, cough and overall not feeling well > Her Pulse ox was 87% on Room Air, therefore she was referred to Emergency department for clinical Hypoxia. Up to this point she has received three treatments with immunotherapy Opdivo, Last treat 01/11/18 01/26/18 - Patient seen in follow-up today and states she is breathing a little better. She denies any abdominal pain. BLE edema and abdominal distention. She does admit to returning to drinking 2-3 shots of alcohol per day last month. She states she quit 2 weeks ago. To her knowledge she has no known history of underlying liver disease. Prior to intiiation of opdivo for adjuvant treatment of her melanoma her Total bilirubin on 11/30/17 was 0.3, AST = 72, ALT 79. Total total Bili 14.7 and AST = 1366, ALT = 213. Review of Systems A 14 point review of systems assessed and completed and all negative except HPI. Past Medical History Past Medical History: Cancer, Fibromyalgia, Osteoarthritis (OA), Skin Disorder Additional Past Medical History / Comment(s): Melanoma with surgery and current chemotherapy, mild edema bilateral lower legs/ankle, "irregular heart beat" but pt states never told what rhythm, lower GI bleed, benign colon polyps, constipation, cervical bulging discs with surgery, cervical and back pain/DDD, migraines in the past, falls, "my equalibrium is off." History of Any Multi-Drug Resistant Organisms: None Reported Past Surgical History: Orthopedic Surgery, Tubal Ligation Additional Past Surgical History / Comment(s): Melanoma removed from under left breast, pre skin cancer removed from back, sinus surgery, cervical surgery with donor bones, colonoscopy with 2 benign polypectomies, key carpal tunnel, left rotator cuff, infusaport to right chest Past Anesthesia/Blood Transfusion Reactions: Motion Sickness Smoking Status: Former smoker - Past Family History Father Family Medical History: Cancer Additional Family Medical History / Comment(s): Father of colon cancer at the age of 88 or 89yrs. Mother Family Medical History: Unable to Obtain Additional Family Medical History / Comment(s): Pt cannot recall mother's health hx at this time. Medications and Allergies Home Medications Medication Instructions Recorded Confirmed Type ALPRAZolam [Xanax] 2 mg PO TID PRN 11/15/17 01/25/18 History Digoxin 250 mcg PO DAILY 11/15/17 01/25/18 History Escitalopram [Lexapro] 20 mg PO DAILY 11/15/17 01/25/18 History HYDROcodone/APAP 5-325MG [[place] 1 tab PO Q6HR PRN 11/15/17 01/25/18 History 5-325] L.acidoph,Paracasei, B.lactis 1 cap PO DAILY 11/15/17 01/25/18 History [Probiotic] Multivitamins, Thera [Multivitamin 1 tab PO DAILY 11/15/17 01/25/18 History (formulary)] Temazepam [Restoril] 15 mg PO HS 11/15/17 01/25/18 History Calcium Carbonate/Vitamin D3 1 tab PO DAILY 01/25/18 01/25/18 History [Calcium 600-Vit D3 200 Tablet] Hydrocortisone Cream 1 applic TOPICAL BID 01/25/18 01/25/18 History [Hydrocortisone 2.5% Cream] Magnesium 200 mg PO DAILY 01/25/18 01/25/18 History Potassium 99 mg PO DAILY 01/25/18 01/25/18 History Turmeric Root Extract [Turmeric] 500 mg PO DAILY 01/25/18 01/25/18 History Ubidecarenone [Co Q-10] 100 mg PO DAILY 01/25/18 01/25/18 History Allergies Allergy/AdvReac Type Severity Reaction Status Date / Time adhesive tape Allergy skin tear Verified 01/25/18 09:18 codeine Allergy Nausea Verified 01/25/18 09:18 morphine Allergy Nausea Verified 01/25/18 09:18 Physical Exam Vitals: Vital Signs Temp Pulse Pulse Resp BP BP Pulse Ox 01/26/18 11:00 88 01/26/18 10:50 84 01/26/18 04:00 97.4 F L 94 18 126/70 92 L 01/26/18 00:00 97 F L 94 18 116/58 92 L 01/25/18 20:00 97.4 F L 94 20 115/62 95 01/25/18 19:23 87 16 01/25/18 19:15 87 16 01/25/18 18:50 98.1 F 101 H 16 124/71 92 L 01/25/18 16:02 98.1 F 96 20 120/59 91 L 01/25/18 15:03 89 18 01/25/18 14:53 93 18 01/25/18 14:20 91 20 120/57 92 L 01/25/18 13:16 98.0 F 94 20 136/62 90 L 01/25/18 13:00 92 18 86 L Intake and Output 01/25/18 01/26/18 01/26/18 22:59 06:59 14:59 Intake Total 450 520 Output Total 200 300 Balance 250 220 Intake: Intake, IV Titration 220 Amount Sodium Chloride 0.9% 1, 220 000 ml @ 20 mls/hr IV . Q24H [facility] Rx#:[id number] Oral 450 300 Output: Urine 200 300 Other: Voiding Method Toilet Toilet # Voids 2 Weight 83.2 kg - Constitutional General appearance: cooperative, no acute distress - EENT Eyes: EOMI, PERRLA, dentition normal, scleral icterus ENT: NA/AT, normal oropharynx - Neck supple, trachea midline Neck: normal ROM - Respiratory Respiratory: bilateral: diminished, wheezing (expiratory, Nasal Cannula, mild increase effort) - Cardiovascular Rhythm: regular Heart sounds: normal: S1, S2 leg Peripheral Edema: bilateral: 1+ - Gastrointestinal General gastrointestinal: distended, normal bowel sounds - Integumentary Integumentary: pale - Neurologic no neurological deficits noted Neurologic: CNII-XII intact - Musculoskeletal Musculoskeletal: generalized weakness, strength equal bilaterally - Psychiatric Psychiatric: A&O x's 3, appropriate affect, intact judgment & insight Results CBC & Chem 7: 01/26/18 06:04 01/26/18 07:40 Labs: Abnormal Lab Results - Last 24 Hours (Table) 01/26/18 01/26/18 01/26/18 Range/Units 06:04 06:04 07:40 RDW 18.2 H (11.5-15.5) % PT 17.0 H (9.0-12.0) sec INR 1.9 H (<1.2) Sodium 136 L (137-145) mmol/L Glucose 157 H (74-99) mg/dL Magnesium 2.6 H (1.6-2.3) mg/dL Total Bilirubin (0.2-1.3) mg/dL AST (14-36) U/L ALT (9-52) U/L Alkaline Phosphatase (38-126) U/L Lactate Dehydrogenase (313-618) U/L Albumin (3.5-5.0) g/dL 01/26/18 01/26/18 Range/Units 07:40 07:40 RDW (11.5-15.5) % PT (9.0-12.0) sec INR (<1.2) Sodium (137-145) mmol/L Glucose 156 H (74-99) mg/dL Magnesium (1.6-2.3) mg/dL Total Bilirubin 14.7 H (0.2-1.3) mg/dL AST 1366 H (14-36) U/L ALT 214 H (9-52) U/L Alkaline Phosphatase 463 H (38-126) U/L Lactate Dehydrogenase 900 H (313-618) U/L Albumin 2.8 L (3.5-5.0) g/dL CT scan - chest: report reviewed Assessment and Plan Plan: Assessment and Recommendations: 1. Metastatic Malignant Melanoma - - Original Diagnosis in March of 2017, underwent Wide Excision of lesion on 04/11/17, then referred to [facility] for further excision (Neg) - [place] Lymph Node Biopsy was 2/2 positive from 05/18/17 - Initial Staging CTs and MRI Brain in June 2017 was negative - Axillary Lymph Node Dissection on 09/20/17, Dr. Peres at [facility] - Zero of 29 lymph nodes positive for metastatic melanoma - Initiated Opdivo Immunotherapy on 12/14/17, She is now status post 3 treatments (Last on 01/11/18) 2. Acute Hypoxic Respiratory Failure: - CT reviewed - No mention of underlying pneumonitis, although must consider with the treatment of immunotherapy and risk of inflammation to any organ 3. Increased LFTs, Transiminitis: - Reviewed Ultrasound and Liver Ultrasound and concerning for hepatic cirrhosis - I have discussed this case in full with GI (Billie) and will continue to monitor closely for any worsening hepatic encephalopathy, initiate lactulose daily, monitor daily coags through weekend, and initiate steroids - Acute hepatitis panel 4. Increased Bilirubin: - Total Bili prior to start of opdivo was 0.3 5. ETOH Abuse - Patient has been on and off binge to daily drinker for many years, she states she quit 2 weeks ago. This complexes the case with the differentials of acute inflammatory drug induced presentation to decompensated liver etiology. Probable multifactoral - I have initiated treatment for "itis" adverse reactions from therapy with immunotherapy opdivo, Solumedrol 40mg IV q12 to begin today and PPI for steroid prophylaxis. - Further treatments with opdivo will be on hold. If this is a drug induced response, should start to respond to steroids rather quickly. A jail steroid taper required once response is seen, will monitor closely. - Monitoring LFTs daily With concern of inflammatory effects will also check TSH, - Lipase and amylase (as opdivo, immunotherapy may increase the risk of elevated enzymes and pancreatitis). She also has some BLE edema as well, an echocardiogram would be resonable if concern for any possible cardiologic etiology/inflammation contributing to her pleural effusions, BLE edema. Thank You for allowing us to participate in the care of this patient, Dr. Crenshaw will be covering the weekend. This case was also discussed with Dr. Silas Jackson REFERRAL NURSE Medical Oncology Time with Patient: Greater than 30
--- NOTE | 2018-01-26 13:33 | P.PN ---
Subjective Progress Note Date: 01/26/18 Principal diagnosis: Bilateral pleural effusion. Status post right sided thoracentesis. This is a very pleasant 62-year-old female patient with a known history of fibromyalgia, osteoarthritis, migraines, depression. She also has a history of left submammary chest wall malignant melanoma and she had a wide excision on 09/2016. She was seen at the [facility] for further skin excision in May 2017 to lymph nodes were positive for metastatic disease. She had a negative computed tomography scan of the chest abdomen and pelvis and negative MRI of the head and he says in June 2017. She does have a 20 year pack per day smoking history but quit approximately 30 years ago. She follows here locally with Dr. Soto who states she has stage III malignant melanoma and she is receiving adjuvant immunotherapy with Nivolumab. She has a Mediport placed. She was sent here to the emergency room from their office today for complaints of increasing shortness of breath. Chest x-ray reveals bilateral pleural effusion right greater than left. CT angiogram ruled out central or segmental pulmonary embolism, subsegmental branches were obscured by atelectasis. No acute findings of pneumonia. There has been interval development of mediastinal adenopathy possibly reactive although a new left upper lobe and lingular centimeter pulmonary nodules are now present. There is hepatocellular disease and at least mild volume abdominal ascites noted. She is initially requiring 15 L partial rebreather mask to maintain O2 saturations in the 90s. White count 8.5. Hemoglobin 15.0. INR 1.8. AST 1964, ALT 260, alk phos 496. She is seen today in consultation on the regular medical floor. She is awake and alert. She does have some episodes of confusion regarding her history. She is quite dyspneic on minimal exertion. No significant cough or congestion. No fever chills or night sweats. She has been initiated on bronchodilators. The patient is seen again today 01/26/2018 in follow-up on the selective care unit. He is currently sitting up in bed. She is awake and alert in no acute distress. She is breathing easier today as compared to yesterday. Intake good O2 saturations in the 90s on 4 L/m per nasal cannula. She is status post right- sided thoracentesis with approximately 1600 ML's of yellow icteric-looking fluid removed. Appears transudate of with an LDH of 148 and a total protein of 2.5. Her follow-up chest x-ray revealed near complete resolution of the right pleural effusion. No pneumothorax. Objective - Vital Signs Vital signs: Vital Signs Temp 97.4 F L 01/26/18 04:00 Pulse 88 01/26/18 11:00 Resp 18 01/26/18 04:00 BP 126/70 01/26/18 04:00 Pulse Ox 92 L 01/26/18 04:00 Intake & Output 01/25/18 01/26/18 01/26/18 18:59 06:59 18:59 Intake Total 970 Output Total 500 Balance 470 Weight 87.4 kg 83.2 kg Intake: Intake, IV Titration 220 Amount Sodium Chloride 0.9% 1, 220 000 ml @ 20 mls/hr IV . Q24H [facility] Rx#:[id number] Oral 750 Output: Urine 500 Other: Voiding Method Toilet # Voids 2 - Exam - Constitutional General appearance: cooperative, mild distress, obese - EENT Eyes: EOMI, PERRLA, scleral icterus ENT: hearing grossly normal Ears: bilateral: normal - Neck Neck: lymphadenopathy Carotids: bilateral: upstroke normal Thyroid: bilateral: normal size - Respiratory Respiratory: bilateral: diminished, dullness, rales - Cardiovascular Rhythm: regular Heart sounds: normal: S1, S2 - Gastrointestinal General gastrointestinal: distended, normal bowel sounds, organomegaly - Integumentary Integumentary: jaundiced, normal - Neurologic Neurologic: CNII-XII intact - Musculoskeletal Musculoskeletal: generalized weakness - Psychiatric Psychiatric: A&O x's 3, appropriate affect, intact judgment & insight - Labs CBC & Chem 7: 01/26/18 06:04 01/26/18 07:40 Labs: Abnormal Lab Results - Last 24 Hours (Table) 01/26/18 01/26/18 01/26/18 Range/Units 06:04 06:04 07:40 RDW 18.2 H (11.5-15.5) % PT 17.0 H (9.0-12.0) sec INR 1.9 H (<1.2) Sodium 136 L (137-145) mmol/L Glucose 157 H (74-99) mg/dL Magnesium 2.6 H (1.6-2.3) mg/dL Total Bilirubin (0.2-1.3) mg/dL AST (14-36) U/L ALT (9-52) U/L Alkaline Phosphatase (38-126) U/L Lactate Dehydrogenase (313-618) U/L Albumin (3.5-5.0) g/dL 01/26/18 01/26/18 Range/Units 07:40 07:40 RDW (11.5-15.5) % PT (9.0-12.0) sec INR (<1.2) Sodium (137-145) mmol/L Glucose 156 H (74-99) mg/dL Magnesium (1.6-2.3) mg/dL Total Bilirubin 14.7 H (0.2-1.3) mg/dL AST 1366 H (14-36) U/L ALT 214 H (9-52) U/L Alkaline Phosphatase 463 H (38-126) U/L Lactate Dehydrogenase 900 H (313-618) U/L Albumin 2.8 L (3.5-5.0) g/dL Assessment and Plan Assessment: Impression: #1 Acute hypoxic respiratory failure secondary to large bilateral pleural effusions. Status post right-sided thoracentesis with 1650 ML's of dark turbulent fluid removed. Possible metastasis. Cytology pending. #2 Mediastinal adenopathy. #3 Left submammary chest wall melanoma status post resection with positive lymph nodes. Stage III malignant melanoma currently receiving adjuvant immunotherapy with Nivolumab. #4 Elevated LFTs with mild ascites and coagulopathy. MRI of the liver pending. Hepatitis screen pending. #5 Fibromyalgia. #6 History of migraines. #7 History of smoking. #8 Anxiety/depression Plan: The patient was seen and evaluated by Dr. Perez. She is improved today as compared to yesterday. We will titrate down her FiO2 as tolerated. Continue bronchodilators. We will continue 20 mg by mouth twice a day. Lovenox for DVT prophylaxis. We will increase her activity as tolerated. We'll continue to follow and make further recommendations based on her clinical status. I, the cosigning physician, performed a history & physical examination of the patient. Lungs sounds with bilateral crackles in diminished in the bases. Maintaining good O2 saturations in the 90s on 4 L/m per nasal cannula.. I discussed the assessment and plan of care with my nurse practitioner, Lissette Candelaria. I attest to the above progress note as dictated by her.
--- NOTE | 2018-01-26 15:30 | MR ---
EXAMINATION TYPE: MR liver wo/w con and mrcp DATE OF EXAM: 01/26/2018 COMPARISON: CT [employer] chest dated 01/25/2018 and PET/CT dated 12/23/2017. HISTORY: Jaundice and biliary obstruction. CONTRAST: Standard multiplanar, multisequence MRI abdomen with MRCP departmental protocol utilizing 10 mL intra venous Gadavist gadolinium contrast. FINDINGS: There is extensive patient motion, limiting evaluation. There is a cirrhotic morphology of the liver with a nodular contour. There is only mild signal dropou t within the hepatic parenchyma on out of phase imaging with no significant hepatic steatosis identif ied. There is a subtle T2 hyperintense and T1 hypointense reticular pattern throughout the liver with delayed enhancement indicative of fibrosis. Focal T1 hypointense nodules are seen within the inferio r right hepatic lobe on precontrast T1 fat-sat image 28 and within the hepatic dome on image 106 no s ubcapsular right posterior medial hepatic lobe in segment 7. These do not exhibit any enhancement and likely represent fibrotic nodules. A subtle patchy area of T2 hyperintensity is seen around the righ t hepatic vein image 29 of T2 axial sequence without any corresponding abnormal enhancement or T1 sig nal, therefore this is likely artifactual as there is extensive motion artifact throughout the examin ation. Evaluation of the main portal vein demonstrates no occlusive process, however the splenoportal confluence and superior mesenteric vein do not opacify and many sequences although no discrete throm bus is seen. There is very mild intrahepatic biliary ductal dilatation without surrounding enhancement of the bili tran tree to indicate inflammatory process. No extrahepatic biliary ductal dilatation is seen of the c ommon hepatic and common bile ducts measure 6 mm. No filling defect is identified. There is partial visualization of a small left and trace right pleural effusions with bibasilar atele ctasis. The pancreas enhances homogeneously without ductal dilatation. The spleen is unremarkable without cassi dence of splenomegaly or siderotic nodule. The adrenal glands are symmetric without nodularity or foc al thickening. The gallbladder is grossly unremarkable. There is partial visualization of moderate ab dominal ascites. IMPRESSION: Overall exam is limited by extensive patient motion 1. Findings indicative of hepatic cirrhosis and hepatic fibrosis without areas of acute inflammatory change or abnormal enhancement identified. Diffuse siderotic nodules are present. Only minimal intrah epatic biliary ductal dilatation is seen without abnormal enhancement of the biliary tree or obstruct ion. Extrahepatic biliary system is within normal limits. No choledocholithiasis is identified. No ce ntral portal venous thrombus is seen or alteration in hepatic perfusion. Evaluation of the portal spl enic confluence and superior mesenteric vein are nondiagnostic for thrombus. 2. Moderate volume abdominal ascites. 3. Small left and trace right partially visualized pleural effusions with associated atelectasis.
[2018-01-26] MEDS: THIAMINE 100 MG TAB PO SCH (15:58)
--- NOTE | 2018-01-26 16:08 | US ---
EXAMINATION TYPE: US abdomen limited DATE OF EXAM: 01/26/2018 COMPARISON: MR liver same date, prior ultrasound abdomen 05/03/2017, CT 06/14/2017, nuclear medicine P ET/CT 12/23/2017 CLINICAL HISTORY: jaundice. NPO, no surgeries, no pain. EXAM MEASUREMENTS: Liver Length: 19.0 cm Gallbladder Wall: 0.2 cm CBD: 1.0 cm CHD: 0.5 cm Right Kidney: 11.2 x 5.2 x 4.6 cm Pancreas: Head and tail obscured by overlying bowel gas. Portions seen appear echogenic and heterog enous. Liver: Enlarged. Appears echogenic, heterogenous, nodular and coarse. Possible intrahepatic bilary dilatation seen. Prominent hypoechoic areas seen near vessels. Gallbladder: Possible sludge Evidence for sonographic Spaulding's sign: neg CBD: Dilated CHD: wnl Right Kidney: wnl Free fluid seen in RUQ IMPRESSION: Hepatomegaly, correlate for hepatocellular disease, hepatic steatosis, there is ascites. Periportal edema could be indicative of hepatocellular disease, there is biliary dilation, tumefactiv e sludge seen within the gallbladder.
[2018-01-26 20:26] LABS: Hepatitis A Antibody IgM Non-Reactive (Non-Reactive); Hepatitis B Core IgM Non-Reactive (Non-Reactive)
[2018-01-26] MEDS: methylPREDNISolone SOD SUCCI 40 MG/ML 1 ML VIAL IV SCH (20:48)
[2018-01-26] MEDS: PANTOPRAZOLE 40 MG TABLET PO SCH (20:48)
[2018-01-26] MEDS: LACTULOSE 20 GM/30 ML CUP PO SCH (20:48)
[2018-01-27 00:46] LABS: Glucose,Whole Blood 125 mg/dL (75-99)
[2018-01-27 01:43] LABS: Anisocytosis Slight; Basophils % (A) 0 %; Eosinophils % (A) 1 %; HCT 47.3 % (34.0-46.0); Hypochromasia Slight; Lymphocytes # (A) 1.3 k/uL (1.0-4.8); Lymphocytes % (A) 16 %; MCH 31.4 pg (25.0-35.0); MCHC 31.6 g/dL (31.0-37.0); MCV 99.2 fL (80.0-100.0); Macrocytosis Slight; Mean Platelet Volume 7.6; Monocytes # (A) 0.6 k/uL (0-1.0); Monocytes % (A) 8 %; Neutrophils # (A) 5.9 k/uL (1.3-7.7); Neutrophils % (A) 74 %; Platelet Count 308 k/uL (150-450); RBC 4.77 m/uL (3.80-5.40); RDW 18.6 % (11.5-15.5); WBC 8.1 k/uL (3.8-10.6)
[2018-01-27 03:23] LABS: Appearance,Urine Cloudy (Clear); Bilirubin,Urine 2+ (Negative); Blood,Urine Moderate (Negative); Color,Urine Dark Yellow; Glucose,Urine (UA) Negative (Negative); Ketones,Urine Negative (Negative); Leukocyte Esterase,Urine Moderate (Negative); Mucus,Urine Rare /hpf; Nitrite,Urine Negative (Negative); Protein,Urine Negative (Negative); RBC,Urine 23 /hpf (0-5); Specific Gravity,Urine 1.011 (1.001-1.035); Squamous Epithelial Cell,Urine 1 /hpf (0-4); WBC,Urine 146 /hpf (0-5)
[2018-01-27 06:03] LABS: Glucose,Whole Blood 145 mg/dL (75-99)
[2018-01-27] MEDS: PANTOPRAZOLE 40 MG TABLET PO SCH ×2 (06:45→15:13)
[2018-01-27] MEDS: INSULIN ASPART 100 UNIT/ML 1 ML 10 ML VIAL SQ SCH ×4 (06:45→22:08)
[2018-01-27 06:47] LABS: Anisocytosis Slight; Basophils % (A) 0 %; Eosinophils # (A) 0.1 k/uL (0-0.7); Eosinophils % (A) 1 %; HCT 44.9 % (34.0-46.0); Hypochromasia Moderate; Lymphocytes # (A) 1.1 k/uL (1.0-4.8); Lymphocytes % (A) 14 %; MCH 30.6 pg (25.0-35.0); MCHC 31.1 g/dL (31.0-37.0); MCV 98.3 fL (80.0-100.0); Macrocytosis Slight; Mean Platelet Volume 7.8; Monocytes # (A) 0.7 k/uL (0-1.0); Monocytes % (A) 10 %; Neutrophils # (A) 5.5 k/uL (1.3-7.7); Neutrophils % (A) 73 %; Platelet Count 298 k/uL (150-450); RBC 4.56 m/uL (3.80-5.40); RDW 18.4 % (11.5-15.5); WBC 7.6 k/uL (3.8-10.6)
[2018-01-27 06:50] LABS: Prothrombin Time 17.9 sec (9.0-12.0)
[2018-01-27 06:51] LABS: ALT 201 U/L (9-52); Albumin 2.4 g/dL (3.5-5.0); Alkaline Phosphatase 415 U/L (38-126); Amylase 41 U/L (30-110); Anion Gap 3 mmol/L; Blood Urea Nitrogen 19 mg/dL (7-17); Calcium 8.4 mg/dL (8.4-10.2); Carbon Dioxide 29 mmol/L (22-30); Chloride 108 mmol/L (98-107); Glucose 142 mg/dL (74-99); Lipase 230 U/L (23-300); Potassium 4.5 mmol/L (3.5-5.1); Sodium 140 mmol/L (137-145); Total Bilirubin 12.5 mg/dL (0.2-1.3); Total Protein 5.8 g/dL (6.3-8.2)
[2018-01-27 07:12] LABS: AST 810 U/L (14-36)
--- NOTE | 2018-01-27 08:31 | XR ---
EXAMINATION TYPE: XR chest 1V portable DATE OF EXAM: 01/27/2018 HISTORY: pleural effusions. REFERENCE: Previous study dated 01/25/2018. FINDINGS: A MediPort is in place via a right internal jugular approach. There has been a previous ACD F of the lower cervical spine. There are small, bilateral pleural effusions. The heart is not enlarged. There is bibasilar airspace disease either representing atelectasis or pneumonia. The overall appearance is similar to previous. IMPRESSION: 1. SMALL, BILATERAL EFFUSIONS. 2. BIBASILAR AIRSPACE DISEASE, ESSENTIALLY UNCHANGED FROM PREVIOUS.
[2018-01-27] MEDS: IPRATROPIUM-ALBUTEROL 3 ML NEB INHALATION SCH ×4 (08:44→19:03)
[2018-01-27] MEDS: ENOXAPARIN 40 MG/0.4 ML SYRINGE SQ SCH (09:12)
[2018-01-27] MEDS: TRIAMCINOLONE 0.1% CREAM 80 GM TUBE TOPICAL SCH ×2 (09:12→22:11)
[2018-01-27] MEDS: ESCITALOPRAM 20 MG TAB PO SCH (09:12)
[2018-01-27] MEDS: DIGOXIN 250 MCG TAB PO SCH (09:13)
[2018-01-27] MEDS: LACTULOSE 20 GM/30 ML CUP PO SCH (09:13)
[2018-01-27] MEDS: FUROSEMIDE 40 MG TAB PO SCH ×2 (09:13→15:13)
[2018-01-27] MEDS: methylPREDNISolone SOD SUCCI 40 MG/ML 1 ML VIAL IV SCH ×2 (09:14→22:09)
[2018-01-27] MEDS: HYDROcodone/APAP 5-325MG 1 EACH TAB PO PRN (10:27)
[2018-01-27 10:56] VITALS: RESP 18
[2018-01-27 11:04] LABS: T4, Free (Free Thyroxine) 1.94 ng/dL (0.78-2.19)
--- NOTE | 2018-01-27 11:04 | P.PN ---
Subjective Progress Note Date: 01/27/18 Principal diagnosis: SOB and weakness Patient is feeling better. No overnight issues. Objective - Vital Signs Vital signs: Vital Signs Temp 97.0 F L 01/27/18 08:00 Pulse 88 01/27/18 08:44 Resp 18 01/27/18 08:00 BP 116/58 01/27/18 08:00 Pulse Ox 94 L 01/27/18 08:00 Intake & Output 01/26/18 01/27/18 01/27/18 18:59 06:59 18:59 Intake Total 640 450 Output Total 1000 Balance -360 450 Weight 83.1 kg Intake: Oral 640 450 Output: Urine 1000 Other: Voiding Method Toilet Toilet # Voids 1 # Bowel Movements 2 - Exam Constitutional: In [id number] respiratory distress, conversant, pleasant Eyes: Icteric sclerae, moist conjunctiva, no lid-lag, PERRLA, ENMT: Oropharynx clear, no erythema, exudates Neck: Supple, FROM, no masses, or JVD, No carotid bruits, No thyromegaly Lungs: Diminished breath sounds at the basis, Clear to percussion, Normal respiratory effort, no accessory muscle use Cardiovascular: Heart regular in rate and rhythm, No murmurs, gallops, or rubs, 1+ peripheral edema Abdominal: Soft, Nontender, no guarding, rebound or rigidity, Normoactive bowel sounds, No hepatomegaly, No splenomegaly, No palpable mass Skin: Normal temperature, tone, texture, turgor, no induration, No subcutaneous nodules, No rash, lesions, No ulcers Extremities: No digital cyanosis, No clubbing, Pedal pulses intact and symmetrical, Radial pulses intact and symmetrical, No calf tenderness Neuro: Muscles Strength 5/5 in all 4 extremities, Sensation to light touch grossly present throughout, Cranial nerves II-XII grossly intact, no focal sensory deficits - Labs CBC & Chem 7: 01/27/18 06:14 01/27/18 06:14 Labs: Abnormal Lab Results - Last 24 Hours (Table) 01/26/18 01/27/18 01/27/18 Range/Units 07:40 00:26 01:11 Hct 47.3 H (34.0-46.0) % RDW 18.6 H (11.5-15.5) % PT (9.0-12.0) sec INR (<1.2) Chloride (98-107) mmol/L BUN (7-17) mg/dL Glucose (74-99) mg/dL POC Glucose (mg/dL) 125 H (75-99) mg/dL Total Bilirubin (0.2-1.3) mg/dL AST (14-36) U/L ALT (9-52) U/L Alkaline Phosphatase (38-126) U/L Ammonia (<30) umol/L Lactate Dehydrogenase 900 H (313-618) U/L Total Protein (6.3-8.2) g/dL Albumin (3.5-5.0) g/dL TSH (0.465-4.680) mIU/L Urine Appearance (Clear) Urine Blood (Negative) Urine Bilirubin (Negative) Ur Leukocyte Esterase (Negative) Urine RBC (0-5) /hpf Urine WBC (0-5) /hpf Urine Mucus (None) /hpf Stool Occult Blood (Negative) 01/27/18 01/27/18 01/27/18 Range/Units 02:20 02:20 05:59 Hct (34.0-46.0) % RDW (11.5-15.5) % PT (9.0-12.0) sec INR (<1.2) Chloride (98-107) mmol/L BUN (7-17) mg/dL Glucose (74-99) mg/dL POC Glucose (mg/dL) 145 H (75-99) mg/dL Total Bilirubin (0.2-1.3) mg/dL AST (14-36) U/L ALT (9-52) U/L Alkaline Phosphatase (38-126) U/L Ammonia (<30) umol/L Lactate Dehydrogenase (313-618) U/L Total Protein (6.3-8.2) g/dL Albumin (3.5-5.0) g/dL TSH (0.465-4.680) mIU/L Urine Appearance Cloudy H (Clear) Urine Blood Moderate H (Negative) Urine Bilirubin 2+ H (Negative) Ur Leukocyte Esterase Moderate H (Negative) Urine RBC 23 H (0-5) /hpf Urine WBC 146 H (0-5) /hpf Urine Mucus Rare H (None) /hpf Stool Occult Blood Positive H (Negative) 01/27/18 01/27/18 01/27/18 Range/Units 06:14 06:14 06:14 Hct (34.0-46.0) % RDW 18.4 H (11.5-15.5) % PT 17.9 H (9.0-12.0) sec INR 2.0 H (<1.2) Chloride 108 H (98-107) mmol/L BUN 19 H (7-17) mg/dL Glucose 142 H (74-99) mg/dL POC Glucose (mg/dL) (75-99) mg/dL Total Bilirubin 12.5 H (0.2-1.3) mg/dL AST 810 H (14-36) U/L ALT 201 H (9-52) U/L Alkaline Phosphatase 415 H (38-126) U/L Ammonia (<30) umol/L Lactate Dehydrogenase (313-618) U/L Total Protein 5.8 L (6.3-8.2) g/dL Albumin 2.4 L (3.5-5.0) g/dL TSH 0.132 L (0.465-4.680) mIU/L Urine Appearance (Clear) Urine Blood (Negative) Urine Bilirubin (Negative) Ur Leukocyte Esterase (Negative) Urine RBC (0-5) /hpf Urine WBC (0-5) /hpf Urine Mucus (None) /hpf Stool Occult Blood (Negative) 01/27/18 Range/Units 06:14 Hct (34.0-46.0) % RDW (11.5-15.5) % PT (9.0-12.0) sec INR (<1.2) Chloride (98-107) mmol/L BUN (7-17) mg/dL Glucose (74-99) mg/dL POC Glucose (mg/dL) (75-99) mg/dL Total Bilirubin (0.2-1.3) mg/dL AST (14-36) U/L ALT (9-52) U/L Alkaline Phosphatase (38-126) U/L Ammonia 33 H (<30) umol/L Lactate Dehydrogenase (313-618) U/L Total Protein (6.3-8.2) g/dL Albumin (3.5-5.0) g/dL TSH (0.465-4.680) mIU/L Urine Appearance (Clear) Urine Blood (Negative) Urine Bilirubin (Negative) Ur Leukocyte Esterase (Negative) Urine RBC (0-5) /hpf Urine WBC (0-5) /hpf Urine Mucus (None) /hpf Stool Occult Blood (Negative) Microbiology - Last 24 Hours (Table) 01/25/18 17:00 Gram Stain - Preliminary Pleural Fluid Body Fluid Culture - Preliminary 01/25/18 17:00 Acid Fast Bacilli Smear - Final Pleural Fluid Acid Fast Bacilli Culture - Preliminary 01/25/18 17:00 Fungal Culture - Preliminary Pleural Fluid Assessment and Plan Plan: Acute hypoxic respiratory failure Likely secondary to bilateral pleural effusions Status post right-sided thoracentsis with 1600 mL of fluids taken out on admission. Pleural fluid sent for cytology--pending Continue O2 supplementation and Duonebs. Pulmonary following New-onset jaundice, transaminitis, likely liver cirrhosis AST and ALT pattern consistent with alcohol damage, liver damage might be secondary to alcohol versus Nivolumab D/W GI, no need for liver biopsy as of now RUQ U/S an MRI of the liver consistent with cirrhosis Ammonia level normal Metastatic melanoma Oncology following Hold off of any form of anti cancer treatment for now. Because Nivolumab has multiple other systemic toxicities in addition to the liver, checking TSH and thyroid hormones. Fibromyalgia, Osteoarthritis (OA), "irregular heart beat", history of lower GI bleed, cervical bulging discs with surgery, cervical and back pain/DDD, migraines in the past, falls, Stable Resume meds End-of-life care Discussed with patient CODE STATUS, she does not want anything done if her disease is end stage and nothing can be done. Otherwise she wants treatment. DVT prophylaxis Subcu Lovenox
[2018-01-27 11:48] LABS: Glucose,Whole Blood 164 mg/dL (75-99)
[2018-01-27] MEDS: SODIUM CHLORIDE 0.9% 1,000 ML IV SCH (11:51)
[2018-01-27] MEDS: THIAMINE 100 MG TAB PO SCH ×2 (11:52→15:13)
[2018-01-27] MEDS: MAGNESIUM OXIDE 400 MG TAB PO SCH (11:52)
[2018-01-27] MEDS: CALCIUM CARB-VIT D 500MG-200UN 1 EACH TAB PO SCH (11:53)
[2018-01-27] MEDS: cefTRIAXone IN SWFI 1,000 MG/10 ML SYRINGE IVP SCH (11:54)
--- NOTE | 2018-01-27 12:33 | PN ---
PROGRESS NOTE REQUESTING PHYSICIAN: The patient is a 62-year-old pleasant white male admitted to hospital with jaundice, vague abdominal discomfort, shortness of breath, and weakness. MMSHIMA / CICIN: [id number] /
--- NOTE | 2018-01-27 12:39 | CONS ---
CONSULTATION REQUESTING PHYSICIAN: Dr. Soto REASON FOR CONSULTATION: Severe jaundice and liver cirrhosis. HISTORY OF PRESENT ILLNESS: The patient is a 62-year-old pleasant white female who was diagnosed with stage III malignant melanoma at [facility] in fall. She was recently started on chemotherapy medication about 3 months ago. She was admitted to the hospital with worsening shortness of breath and subsequently diagnosed with severe right-sided pleural effusion for which she underwent thoracentesis by Dr. Perez yesterday and cytology is still pending at the time of this dictation. She does have jaundice and no history of chronic liver disease. She has remote history of heavy alcohol abuse. She denies any symptoms today. She is feeling less shortness of breath. She does complain of abdominal distention, but no abdominal pain. No nausea or vomiting. PHYSICAL EXAMINATION: She appears comfortable. No apparent distress. VITAL SIGNS: Stable. Blood pressure is 116/58, pulse rate 90, temperature 97. HEENT: Examination unremarkable. Conjunctivae pink. Sclerae deeply icteric. Oral cavity, no lesions. NECK: No JVD. No lymph node enlargement. CHEST: Clear to auscultation. HEART: Regular rate and rhythm. ABDOMEN: Soft, it was slightly distended. There was no free fluid noted. EXTREMITIES: No pedal edema. SKIN: No rashes. NEUROLOGIC: Alert and oriented x3. No focal deficits. LAB: From today WBC 8.1, hemoglobin 15, platelets normal. INR is 2, PTT is 17.9, AST is down to 810, ALT is 201, alkaline phosphatase is 415, T bilirubin is 12.5. She did have MRI of the liver done yesterday that showed evidence of nodular appearing liver consistent with cirrhosis. No evidence of extra or intrahepatic biliary ductal dilation. No filling defects noted in the common bile duct. There was a moderate amount of ascites noted and the gallbladder was normal. Portal veins were patent and so were hepatic veins. IMPRESSION: This is a lady who was diagnosed with stage III malignant melanoma in fall, now presents with new onset ascites, jaundice and pleural effusion. She underwent a thoracentesis yesterday and cytology is still pending. In the meantime, she is noted to have elevated bilirubin up to 12 with elevated serum transaminases and a CT as well as MRI of the liver did show evidence of cirrhotic appearing liver, but no evidence of intra or extrahepatic biliary ductal dilation. The patient was also started on new chemo medication 3 months ago for malignant melanoma. Her biochemical as well as imaging studies are consistent with liver cirrhosis, probably related to remote history of heavy alcohol abuse, but if it is superimposed with acute ongoing hepatitis/intrahepatic cholestasis, probably medication related from recent chemotherapy. Superimposed infectious hepatitis also needs to be excluded. There is no evidence of obstructive jaundice as MRI did not show any evidence of biliary ductal dilation or filling defects in the common bile duct. RECOMMENDATIONS: 1. We will obtain hepatitis serologies for A, B, and C. 2. No indication for ERCP at the present time. 3. Await cytology results from pleural effusion. 4. Hold off on the new chemotherapy medication that was started 3 months ago, which will discuss with Dr. Soto and we will follow the patient during the hospital stay. Thank you for this consultation. ASHKAN / KRISSY: [id number] /
--- NOTE | 2018-01-27 12:55 | P.PN ---
Subjective Progress Note Date: 01/27/18 Principal diagnosis: Right pleural effusion, status post right sided thoracentesis This is a very pleasant 62-year-old female patient with a known history of fibromyalgia, osteoarthritis, migraines, depression. She also has a history of left submammary chest wall malignant melanoma and she had a wide excision on 09/2016. She was seen at the [facility] for further skin excision in May 2017 to lymph nodes were positive for metastatic disease. She had a negative computed tomography scan of the chest abdomen and pelvis and negative MRI of the head and he says in June 2017. She does have a 20 year pack per day smoking history but quit approximately 30 years ago. She follows here locally with Dr. Soto who states she has stage III malignant melanoma and she is receiving adjuvant immunotherapy with Nivolumab. She has a Mediport placed. She was sent here to the emergency room from their office today for complaints of increasing shortness of breath. Chest x-ray reveals bilateral pleural effusion right greater than left. CT angiogram ruled out central or segmental pulmonary embolism, subsegmental branches were obscured by atelectasis. No acute findings of pneumonia. There has been interval development of mediastinal adenopathy possibly reactive although a new left upper lobe and lingular centimeter pulmonary nodules are now present. There is hepatocellular disease and at least mild volume abdominal ascites noted. She is initially requiring 15 L partial rebreather mask to maintain O2 saturations in the 90s. White count 8.5. Hemoglobin 15.0. INR 1.8. AST 1964, ALT 260, alk phos 496. She is seen today in consultation on the regular medical floor. She is awake and alert. She does have some episodes of confusion regarding her history. She is quite dyspneic on minimal exertion. No significant cough or congestion. No fever chills or night sweats. She has been initiated on bronchodilators. The patient is seen again today 01/26/2018 in follow-up on the selective care unit. He is currently sitting up in bed. She is awake and alert in no acute distress. She is breathing easier today as compared to yesterday. Intake good O2 saturations in the 90s on 4 L/m per nasal cannula. She is status post right- sided thoracentesis with approximately 1600 ML's of yellow icteric-looking fluid removed. Appears transudate of with an LDH of 148 and a total protein of 2.5. Her follow-up chest x-ray revealed near complete resolution of the right pleural effusion. No pneumothorax. Patient was reevaluated today on 01/27/2018, remains on a monitor bed, reviewed the results of her pleural effusion, seems to be transudative in nature, hence I recommended that we continue diuretics, and she was placed on oral Lasix. Follow-up chest x-ray showed hardly any reaccumulation of the right-sided pleural effusion, patient is feeling dramatically better, I removed 1600 mL of yellow icteric fluid from the right pleural space on admission. Chest x-ray was reviewed from today, and it is reassuring. No need for any thoracentesis at this point. CBC is relatively normal basic metabolic profile is normal and INR is 2.0 related to her underlying liver disease. Objective - Vital Signs Vital signs: Vital Signs Temp 97.0 F L 01/27/18 08:00 Pulse 88 01/27/18 12:02 Resp 18 01/27/18 08:00 BP 116/58 01/27/18 08:00 Pulse Ox 94 L 01/27/18 08:00 Intake & Output 01/26/18 01/27/18 01/27/18 18:59 06:59 18:59 Intake Total 640 450 Output Total 1000 Balance -360 450 Weight 83.1 kg Intake: Oral 640 450 Output: Urine 1000 Other: Voiding Method Toilet Toilet Toilet # Voids 1 # Bowel Movements 2 - Exam Physical Exam: Revealed a 62-year-old female, pleasant, in no distress. Head:, Atraumatic, normocephalic. HEENT:[Neck is supple.] [No neck masses.] [No thyromegaly.] [No JVD.] Slight icterus is noted. Moist mucous membranes. Chest: [Clear throughout, no crackles, no rhonchi, no wheezes.] Cardiac Exam: [Normal S1 and S2, no S3 gallop, no murmur.] Abdomen: [Soft, nontender, no megaly, no rebound, no guarding, normal bowel sounds.] Extremities: [No clubbing, 2+ bipedal edema, no cyanosis.] Neurological Exam: [No focal neurologic deficit. Psychiatric: Normal mood affect and mental status examination. Lymphatics: No lymphadenopathy. Musculoskeletal relatively unremarkable normal range of motion, no deformities. ] - Labs CBC & Chem 7: 01/27/18 06:14 01/27/18 06:14 Labs: Abnormal Lab Results - Last 24 Hours (Table) 01/27/18 01/27/18 01/27/18 Range/Units 00:26 01:11 02:20 Hct 47.3 H (34.0-46.0) % RDW 18.6 H (11.5-15.5) % PT (9.0-12.0) sec INR (<1.2) Chloride (98-107) mmol/L BUN (7-17) mg/dL Glucose (74-99) mg/dL POC Glucose (mg/dL) 125 H (75-99) mg/dL Total Bilirubin (0.2-1.3) mg/dL AST (14-36) U/L ALT (9-52) U/L Alkaline Phosphatase (38-126) U/L Ammonia (<30) umol/L Total Protein (6.3-8.2) g/dL Albumin (3.5-5.0) g/dL TSH (0.465-4.680) mIU/L Urine Appearance Cloudy H (Clear) Urine Blood Moderate H (Negative) Urine Bilirubin 2+ H (Negative) Ur Leukocyte Esterase Moderate H (Negative) Urine RBC 23 H (0-5) /hpf Urine WBC 146 H (0-5) /hpf Urine Mucus Rare H (None) /hpf Stool Occult Blood (Negative) 01/27/18 01/27/18 01/27/18 Range/Units 02:20 05:59 06:14 Hct (34.0-46.0) % RDW (11.5-15.5) % PT (9.0-12.0) sec INR (<1.2) Chloride 108 H (98-107) mmol/L BUN 19 H (7-17) mg/dL Glucose 142 H (74-99) mg/dL POC Glucose (mg/dL) 145 H (75-99) mg/dL Total Bilirubin 12.5 H (0.2-1.3) mg/dL AST 810 H (14-36) U/L ALT 201 H (9-52) U/L Alkaline Phosphatase 415 H (38-126) U/L Ammonia (<30) umol/L Total Protein 5.8 L (6.3-8.2) g/dL Albumin 2.4 L (3.5-5.0) g/dL TSH 0.132 L (0.465-4.680) mIU/L Urine Appearance (Clear) Urine Blood (Negative) Urine Bilirubin (Negative) Ur Leukocyte Esterase (Negative) Urine RBC (0-5) /hpf Urine WBC (0-5) /hpf Urine Mucus (None) /hpf Stool Occult Blood Positive H (Negative) 01/27/18 01/27/18 01/27/18 Range/Units 06:14 06:14 06:14 Hct (34.0-46.0) % RDW 18.4 H (11.5-15.5) % PT 17.9 H (9.0-12.0) sec INR 2.0 H (<1.2) Chloride (98-107) mmol/L BUN (7-17) mg/dL Glucose (74-99) mg/dL POC Glucose (mg/dL) (75-99) mg/dL Total Bilirubin (0.2-1.3) mg/dL AST (14-36) U/L ALT (9-52) U/L Alkaline Phosphatase (38-126) U/L Ammonia 33 H (<30) umol/L Total Protein (6.3-8.2) g/dL Albumin (3.5-5.0) g/dL TSH (0.465-4.680) mIU/L Urine Appearance (Clear) Urine Blood (Negative) Urine Bilirubin (Negative) Ur Leukocyte Esterase (Negative) Urine RBC (0-5) /hpf Urine WBC (0-5) /hpf Urine Mucus (None) /hpf Stool Occult Blood (Negative) 01/27/18 Range/Units 11:42 Hct (34.0-46.0) % RDW (11.5-15.5) % PT (9.0-12.0) sec INR (<1.2) Chloride (98-107) mmol/L BUN (7-17) mg/dL Glucose (74-99) mg/dL POC Glucose (mg/dL) 164 H (75-99) mg/dL Total Bilirubin (0.2-1.3) mg/dL AST (14-36) U/L ALT (9-52) U/L Alkaline Phosphatase (38-126) U/L Ammonia (<30) umol/L Total Protein (6.3-8.2) g/dL Albumin (3.5-5.0) g/dL TSH (0.465-4.680) mIU/L Urine Appearance (Clear) Urine Blood (Negative) Urine Bilirubin (Negative) Ur Leukocyte Esterase (Negative) Urine RBC (0-5) /hpf Urine WBC (0-5) /hpf Urine Mucus (None) /hpf Stool Occult Blood (Negative) Microbiology - Last 24 Hours (Table) 01/25/18 17:00 Gram Stain - Preliminary Pleural Fluid Body Fluid Culture - Preliminary 01/25/18 17:00 Acid Fast Bacilli Smear - Final Pleural Fluid Acid Fast Bacilli Culture - Preliminary 01/25/18 17:00 Fungal Culture - Preliminary Pleural Fluid Assessment and Plan Assessment: #1 Acute hypoxic respiratory failure secondary to large bilateral pleural effusions. Status post right-sided thoracentesis with 1650 ML's of dark turbulent fluid removed. Possible metastasis. Cytology pending. #2 Mediastinal adenopathy. #3 Left submammary chest wall melanoma status post resection with positive lymph nodes. Stage III malignant melanoma currently receiving adjuvant immunotherapy with Nivolumab. #4 Elevated LFTs with mild ascites and coagulopathy. MRI of the liver pending. Hepatitis screen pending. #5 Fibromyalgia. #6 History of migraines. #7 History of smoking. #8 Anxiety/depression Recommendation: Continue present treatment plan, consider discharge planning and follow-up on outpatient basis. Again I discussed with the patient her chest x-ray, the basic report on her pleural effusion, and she could be seen on outpatient basis if discharged home today or tomorrow. Time with Patient: Less than 30
--- NOTE | 2018-01-27 16:37 | ECHOF ---
Referral Reason:Bilateral effusions, BLE, Ascites, on immunother MEASUREMENTS -------- HEIGHT: 165.1 cm WEIGHT: 83.0 kg BP: RVIDd: 2.9 cm (< 3.3) IVSd: 0.8 cm (0.6 - 1.1) LVIDd: 4.1 cm (3.9 - 5.3) LVPWd: 0.8 cm (0.6 - 1.1) IVSs: 1.3 cm LVIDs: 3.0 cm LVPWs: 1.3 cm LA Diam: 3.3 cm (2.7 - 3.8) Ao Diam: 3.0 cm (2.0 - 3.7) LA Diam: 2.9 cm (2.7 - 3.8) MV EXCURSION: 19.436 mm (> 18.000) MV EF SLOPE: 59 mm/s (70 - 150) EPSS: 0.1 cm MV E Kwame: 1.06 m/s MV DecT: 209 ms MV A Kwame: 0.99 m/s MV E/A Ratio: 1.07 RAP: 5.00 mmHg RVSP: 27.49 mmHg FINDINGS -------- Sinus rhythm. This was a technically adequate study. LV size, wall thickness and systolic function are normal, with an EF greater than 55%. The left beckie tricular size is normal. The right ventricle is normal in size. The left atrial size is normal. The right atrial size is normal. The aortic valve is trileaflet, and appears structurally normal. No aortic stenosis or regurgitation. The mitral valve is normal. Mild mitral regurgitation is present. Mild tricuspid regurgitation present. There is no evidence of pulmonary hypertension. The right v entricular systolic pressure, as measured by Doppler, is 27.49mmHg. The pulmonic valve was not well visualized. There is no pulmonic regurgitation present. The aortic root size is normal. There is no pericardial effusion. CONCLUSIONS -------- 1. Sinus rhythm. 2. LV size, wall thickness and systolic function are normal, with an EF greater than 55%. 3. The left ventricular size is normal. 4. The right ventricle is normal in size. 5. The left atrial size is normal. 6. The aortic valve is trileaflet, and appears structurally normal. No aortic stenosis or regurgitati on. 7. Mild mitral regurgitation is present. 8. Mild tricuspid regurgitation present. 9. There is no evidence of pulmonary hypertension. 10. The pulmonic valve was not well visualized. 11. There is no pulmonic regurgitation present. 12. The aortic root size is normal. 13. There is no pericardial effusion. SITE LEASING AGENT: Carmen Andrade RDCS
[2018-01-27 17:00] LABS: Glucose,Whole Blood 129 mg/dL (75-99)
[2018-01-27 20:54] LABS: Glucose,Whole Blood 191 mg/dL (75-99)
[2018-01-28 06:00] LABS: Glucose,Whole Blood 127 mg/dL (75-99)
[2018-01-28] MEDS: INSULIN ASPART 100 UNIT/ML 1 ML 10 ML VIAL SQ SCH ×2 (06:18→12:33)
[2018-01-28 06:56] LABS: ALT 222 U/L (9-52); AST 666 U/L (14-36); Albumin 2.4 g/dL (3.5-5.0); Alkaline Phosphatase 435 U/L (38-126); Anion Gap 3 mmol/L; Blood Urea Nitrogen 17 mg/dL (7-17); Calcium 8.3 mg/dL (8.4-10.2); Carbon Dioxide 30 mmol/L (22-30); Chloride 108 mmol/L (98-107); Glucose 141 mg/dL (74-99); Potassium 4.1 mmol/L (3.5-5.1); Sodium 141 mmol/L (137-145); Total Bilirubin 12.7 mg/dL (0.2-1.3)
[2018-01-28] MEDS: PANTOPRAZOLE 40 MG TABLET PO SCH (07:04)
[2018-01-28 07:34] LABS: Anisocytosis Slight; HCT 44.3 % (34.0-46.0); HGB 13.9 gm/dL (11.4-16.0); Hypochromasia Moderate; MCHC 31.4 g/dL (31.0-37.0); MCV 98.6 fL (80.0-100.0); Macrocytosis Slight; Platelet Count 234 k/uL (150-450); RDW 18.4 % (11.5-15.5); WBC 6.7 k/uL (3.8-10.6)
[2018-01-28] MEDS: IPRATROPIUM-ALBUTEROL 3 ML NEB INHALATION SCH ×3 (07:53→17:05)
[2018-01-28] MEDS: TRIAMCINOLONE 0.1% CREAM 80 GM TUBE TOPICAL SCH (08:31)
[2018-01-28] MEDS: CALCIUM CARB-VIT D 500MG-200UN 1 EACH TAB PO SCH (08:31)
[2018-01-28] MEDS: LACTULOSE 20 GM/30 ML CUP PO SCH (08:31)
[2018-01-28] MEDS: MAGNESIUM OXIDE 400 MG TAB PO SCH (08:32)
[2018-01-28] MEDS: FUROSEMIDE 40 MG TAB PO SCH (08:32)
[2018-01-28] MEDS: THIAMINE 100 MG TAB PO SCH (08:32)
[2018-01-28] MEDS: ENOXAPARIN 40 MG/0.4 ML SYRINGE SQ SCH (08:32)
[2018-01-28] MEDS: DIGOXIN 250 MCG TAB PO SCH (08:32)
[2018-01-28] MEDS: ESCITALOPRAM 20 MG TAB PO SCH (08:32)
[2018-01-28 08:33] LABS: Lymphocytes # (M) 0.87 k/uL (1.0-4.8); Monocytes # (M) 0.74 k/uL (0-1.0); Neutrophils # (M) 5.09 k/uL (1.3-7.7); Neutrophils % (M) 76 %; Nucleated Red Blood Cells 0 /100 WBC (0-0); Total Cells Counted 100
[2018-01-28 08:34] LABS: Target Cells Present
[2018-01-28] MEDS: cefTRIAXone IN SWFI 1,000 MG/10 ML SYRINGE IVP SCH (08:34)
[2018-01-28] MEDS ORDERED: methylPREDNISolone SOD SUCCI 40 MG/ML 1 ML VIAL IV SCH (09:00)
--- NOTE | 2018-01-28 10:04 | P.PN ---
Subjective Progress Note Date: 01/27/18 Principal diagnosis: Transaminitis SOB due to pleural effusion Overall pt feeling slightly better. MRI abdomen with evidence of cirrhosis and fibrosis of the liver, without inflammation. 2D echo negative. Objective - Vital Signs Vital signs: Vital Signs Temp 97.1 F L 01/27/18 16:00 Pulse 82 01/27/18 19:12 Resp 18 01/27/18 16:00 BP 102/49 01/27/18 16:00 Pulse Ox 92 L 01/27/18 16:00 Intake & Output 01/27/18 01/27/18 01/28/18 06:59 18:59 06:59 Intake Total 450 480 Balance 450 480 Weight 83.1 kg Intake: Oral 450 480 Other: Voiding Method Toilet Toilet # Voids 1 1 # Bowel Movements 2 - Exam Constitutional: No acute distress. HEENT: EOMI. Scleral icterus. Mucosa moist. Neck: Neck supple. Lungs: CTA-B, decreased breath sounds bilateral lower lungs. Heart: RRR without murmurs. She does have bilateral LE edema. Abdomen: Soft, nontender, nondistended, with positive bowel sounds. Fluid shift. MSK: 4/4 strength in all 4 extremities. Neuro: Alert and oriented x 3. No obvious gross neurologic deficits. Skin: No jaundice or rash. Psych: Appropriate affect. - Labs CBC & Chem 7: 01/28/18 06:20 01/28/18 06:20 Labs: Abnormal Lab Results - Last 24 Hours (Table) 01/27/18 01/27/18 01/27/18 Range/Units 00:26 01:11 02:20 Hct 47.3 H (34.0-46.0) % RDW 18.6 H (11.5-15.5) % PT (9.0-12.0) sec INR (<1.2) Chloride (98-107) mmol/L BUN (7-17) mg/dL Glucose (74-99) mg/dL POC Glucose (mg/dL) 125 H (75-99) mg/dL Total Bilirubin (0.2-1.3) mg/dL AST (14-36) U/L ALT (9-52) U/L Alkaline Phosphatase (38-126) U/L Ammonia (<30) umol/L Total Protein (6.3-8.2) g/dL Albumin (3.5-5.0) g/dL TSH (0.465-4.680) mIU/L Urine Appearance Cloudy H (Clear) Urine Blood Moderate H (Negative) Urine Bilirubin 2+ H (Negative) Ur Leukocyte Esterase Moderate H (Negative) Urine RBC 23 H (0-5) /hpf Urine WBC 146 H (0-5) /hpf Urine Mucus Rare H (None) /hpf Stool Occult Blood (Negative) 01/27/18 01/27/18 01/27/18 Range/Units 02:20 05:59 06:14 Hct (34.0-46.0) % RDW (11.5-15.5) % PT (9.0-12.0) sec INR (<1.2) Chloride 108 H (98-107) mmol/L BUN 19 H (7-17) mg/dL Glucose 142 H (74-99) mg/dL POC Glucose (mg/dL) 145 H (75-99) mg/dL Total Bilirubin 12.5 H (0.2-1.3) mg/dL AST 810 H (14-36) U/L ALT 201 H (9-52) U/L Alkaline Phosphatase 415 H (38-126) U/L Ammonia (<30) umol/L Total Protein 5.8 L (6.3-8.2) g/dL Albumin 2.4 L (3.5-5.0) g/dL TSH 0.132 L (0.465-4.680) mIU/L Urine Appearance (Clear) Urine Blood (Negative) Urine Bilirubin (Negative) Ur Leukocyte Esterase (Negative) Urine RBC (0-5) /hpf Urine WBC (0-5) /hpf Urine Mucus (None) /hpf Stool Occult Blood Positive H (Negative) 01/27/18 01/27/18 01/27/18 Range/Units 06:14 06:14 06:14 Hct (34.0-46.0) % RDW 18.4 H (11.5-15.5) % PT 17.9 H (9.0-12.0) sec INR 2.0 H (<1.2) Chloride (98-107) mmol/L BUN (7-17) mg/dL Glucose (74-99) mg/dL POC Glucose (mg/dL) (75-99) mg/dL Total Bilirubin (0.2-1.3) mg/dL AST (14-36) U/L ALT (9-52) U/L Alkaline Phosphatase (38-126) U/L Ammonia 33 H (<30) umol/L Total Protein (6.3-8.2) g/dL Albumin (3.5-5.0) g/dL TSH (0.465-4.680) mIU/L Urine Appearance (Clear) Urine Blood (Negative) Urine Bilirubin (Negative) Ur Leukocyte Esterase (Negative) Urine RBC (0-5) /hpf Urine WBC (0-5) /hpf Urine Mucus (None) /hpf Stool Occult Blood (Negative) 01/27/18 01/27/18 01/27/18 Range/Units 11:42 16:51 20:52 Hct (34.0-46.0) % RDW (11.5-15.5) % PT (9.0-12.0) sec INR (<1.2) Chloride (98-107) mmol/L BUN (7-17) mg/dL Glucose (74-99) mg/dL POC Glucose (mg/dL) 164 H 129 H 191 H (75-99) mg/dL Total Bilirubin (0.2-1.3) mg/dL AST (14-36) U/L ALT (9-52) U/L Alkaline Phosphatase (38-126) U/L Ammonia (<30) umol/L Total Protein (6.3-8.2) g/dL Albumin (3.5-5.0) g/dL TSH (0.465-4.680) mIU/L Urine Appearance (Clear) Urine Blood (Negative) Urine Bilirubin (Negative) Ur Leukocyte Esterase (Negative) Urine RBC (0-5) /hpf Urine WBC (0-5) /hpf Urine Mucus (None) /hpf Stool Occult Blood (Negative) Microbiology - Last 24 Hours (Table) 01/25/18 17:00 Gram Stain - Preliminary Pleural Fluid Body Fluid Culture - Preliminary 01/25/18 17:00 Acid Fast Bacilli Smear - Final Pleural Fluid Acid Fast Bacilli Culture - Preliminary Assessment and Plan Assessment: 1. Transaminitis with elevated bilirubin 2. Metastatic malignant melanoma on immunotherapy 3. Cirrhosis, seems to be decompensated 4. Anasarca Plan: Ms. Lund is a very pleasant 62 yo female with history of metastatic malignant melanoma, on immunotherapy with Opdivo, as well as heayy alcohol use. She did quit her alcohol use for a while and recently began drinking again. Here for SOB, found to be in diffuse fluid overload, with bilateral pleural effusions, ascites, and LE edema. Work up revealed transaminitis (not new) as well as significantly elevated bilirubin of 12's. Started on Solumedrol due to concern that this could be due to autoimmune from opdivo without any improvement of her bilirubin. GI on board, and MRI obtained. Also 2D echo done to assess for possible myositis, which was normal. TSH was low however FT4 was normal. I feel that her transaminitis is less likely to be due to autoimmune hepatitis from opdivo therapy with MRI findings of cirrhosis and fibrosis, although there could be a component of this. Transaminitis could be due to her alcohol use and cirrhosis. Will decrease solumedrol to 40mg daily for now however as her transaminases are slowly improving and will reassess on Monday. Addendum: Spoke with pt's primary team on 01/28/18. She is ready for discharge, and asking if she can be discharged from oncologic stand point. She did receive her dose of solumedrol already this morning. No objections to discharge from oncology stand point. I would like her to follow up with us tomorrow (Monday) in clinic, and we can decide at that time if further steroid therapy is needed. She can go home without any steroid prescription for now.
--- NOTE | 2018-01-28 10:13 | P.DS ---
Providers Date of admission: 01/25/18 11:21 Expected date of discharge: 01/28/18 Attending physician: Jay Brewer MD Consults: 01/25/18 11:21 Consult Physician Routine Consulting Provider: Adonay Soto Consult Reason/Comments: known Do you want consulting provider notified?: Yes 01/25/18 15:38 Consult Physician Routine Consulting Provider: Lazaro Mackay Consult Reason/Comments: sob Do you want consulting provider notified?: Yes 01/25/18 15:39 Consult Physician Routine Consulting Provider: Gonsalo Ariza Consult Reason/Comments: liver cirrhosis Do you want consulting provider notified?: Yes Primary care physician: [facility] Course: 62-year-old female with history of metastatic melanoma presented to the emergency department because of worsening weakness, lack of energy as well as shortness of breath. Patient history goes back to March 2017 when she was found to have a left submammary chest wall nodule that was biopsied and was found to have Luis Alberto's level V malignant melanoma. Subsequently she had a wide excision in of the lesion was 4 mm depth, all margins were negative. After that she was referred to [facility] where she had further skin excision in , lymph node biopsy at that time showed metastasis disease. Subsequently she had axillary lymph node dissection at [facility] in that revealed no further metastatic melanoma in all 29 lymph nodes tested. In she had negative computed tomography scan of the chest/abdomen and pelvis. He also had negative MRI of the brain.. In addition to weakness and shortness of breath she mentioned intermittent fevers and chills, nausea, diarrhea as well as diffuse generalized aches all over her body including the legs, the neck, the chest as well as abdomen. She denied hematemesis or hematochezia. Patient is currently getting immune therapy with Nivolumab, received 3 doses so far, last one was 2 weeks ago. In the emergency department she was found to be hypoxic with O2 saturations down in the 80s. She was placed in the 100% nonrebreather mask and was subsequently admitted to the hospital for further evaluation and management. CT angiogram of the chest showed bilateral pleural effusions right more than left with significant bilateral lower lobe atelectasis as well as mediastinal lymphadenopathy. It did not reveal any pulmonary embolism.. She was evaluated by pulmonary service who did a right-sided thoracentesis. Total of 1600 mL of dark turbulent fluid was removed. Fluid was sent for cytology which is currently pending. After that her breathing felt much better. Oxygen requirements went down to 5 L and then later to 3 L. Urinalysis revealed significant pyuria. Because of that she was started on antibiotics. Patient had an echocardiogram because of the bilateral pleural effusions to rule out CHF and that revealed normal EF without significant findings. Laboratory testing revealed no leukocytosis, hemoglobin and platelet count were normal. Labs also revealed AST 1962, AST 266 bilirubin 14.5, INR 2. She was evaluated by gastroenterology, had an MRI of the liver that showed evidence of cirrhosis. Of note patient has been drinking consistently over the last year. It was not clear whether the liver failure was due to drinking versus immunotherapy with Nivolumab. Liver biopsy was not recommended by Dr. Valdes. Oncology service treated patient with steroids for the liver but that did not result in significant improvement. Upon discharge her AST was 666, AST was 222 , bilirubin was 12.7. The steroids were discontinued upon discharge. That was discussed with oncology. Upon discharge patient has a walking O2 evaluation and she dropped her O2 saturations down to 85% on room air, she'll qualify for home O2 therapy. I discussed the discharge with care management who will arrange for home PT and OT as well as nursing. Discharge diagnoses Liver cirrhosis, alcoholic versus secondary to immunotherapy Bilateral pleural effusions Acute hypoxic respiratory failure General weakness Metastatic melanoma Patient Condition at Discharge: Fair Plan - Discharge Summary Discharge Rx Participant: No New Discharge Prescriptions: New Furosemide [Lasix] 40 mg PO DAILY #30 tab Lactulose [Cephulac] 20 gm PO DAILY 30 Days #900 ml Thiamine [Vitamin B-1] 100 mg PO BID@1200,1700 #30 tab Folic Acid 1 mg PO DAILY #30 tablet Ipratropium-Albuterol Nebulize [Duoneb 0.5 mg-3 mg/3 ml Soln] 3 ml INHALATION RT-QID #90 ampul.neb Amoxicillin/Potassium Clav [Augmentin 875-125 Tablet] 1 tab PO Q12HR #14 tab Continue Temazepam [Restoril] 15 mg PO HS HYDROcodone/APAP 5-325MG [Hampshire 5-325] 1 tab PO Q6HR PRN PRN Reason: Pain Escitalopram [Lexapro] 20 mg PO DAILY Digoxin 250 mcg PO DAILY ALPRAZolam [Xanax] 2 mg PO TID PRN PRN Reason: Anxiety Multivitamins, Thera [Multivitamin (formulary)] 1 tab PO DAILY L.acidoph,Paracasei, B.lactis [Probiotic] 1 cap PO DAILY Magnesium 200 mg PO DAILY Hydrocortisone Cream [Hydrocortisone 2.5% Cream] 1 applic TOPICAL BID Calcium Carbonate/Vitamin D3 [Calcium 600-Vit D3 200 Tablet] 1 tab PO DAILY Turmeric Root Extract [Turmeric] 500 mg PO DAILY Ubidecarenone [Co Q-10] 100 mg PO DAILY Potassium 99 mg PO DAILY Discharge Medication List ALPRAZolam [Xanax] 2 mg PO TID PRN 11/15/17 [History] Digoxin 250 mcg PO DAILY 11/15/17 [History] Escitalopram [Lexapro] 20 mg PO DAILY 11/15/17 [History] HYDROcodone/APAP 5-325MG [Hampshire 5-325] 1 tab PO Q6HR PRN 11/15/17 [History] L.acidoph,Paracasei, B.lactis [Probiotic] 1 cap PO DAILY 11/15/17 [History] Multivitamins, Thera [Multivitamin (formulary)] 1 tab PO DAILY 11/15/17 [History ] Temazepam [Restoril] 15 mg PO HS 11/15/17 [History] Calcium Carbonate/Vitamin D3 [Calcium 600-Vit D3 200 Tablet] 1 tab PO DAILY [History] Hydrocortisone Cream [Hydrocortisone 2.5% Cream] 1 applic TOPICAL BID 01/25/18 [ History] Magnesium 200 mg PO DAILY 01/25/18 [History] Potassium 99 mg PO DAILY 01/25/18 [History] Turmeric Root Extract [Turmeric] 500 mg PO DAILY 01/25/18 [History] Ubidecarenone [Co Q-10] 100 mg PO DAILY 01/25/18 [History] Amoxicillin/Potassium Clav [Augmentin 875-125 Tablet] 1 tab PO Q12HR #14 tab [Rx] Folic Acid 1 mg PO DAILY #30 tablet 01/28/18 [Rx] Furosemide [Lasix] 40 mg PO DAILY #30 tab 01/28/18 [Rx] Ipratropium-Albuterol Nebulize [Duoneb 0.5 mg-3 mg/3 ml Soln] 3 ml INHALATION RT -QID #90 ampul.neb 01/28/18 [Rx] Lactulose [Cephulac] 20 gm PO DAILY 30 Days #900 ml 01/28/18 [Rx] Thiamine [Vitamin B-1] 100 mg PO BID@1200,1700 #30 tab 01/28/18 [Rx] Follow up Appointment(s)/Referral(s): Gonzales Huerta MD [Primary Care Provider] - 1-2 days
[2018-01-28] MEDS: SODIUM CHLORIDE 0.9% 1,000 ML IV SCH (11:14)
[2018-01-28 11:27] VITALS: PULSE 95
--- NOTE | 2018-01-28 11:58 | P.PN ---
Subjective Progress Note Date: 01/28/18 Principal diagnosis: Right pleural effusion, status post right sided thoracentesis This is a very pleasant 62-year-old female patient with a known history of fibromyalgia, osteoarthritis, migraines, depression. She also has a history of left submammary chest wall malignant melanoma and she had a wide excision on 09/2016. She was seen at the [facility] for further skin excision in May 2017 to lymph nodes were positive for metastatic disease. She had a negative computed tomography scan of the chest abdomen and pelvis and negative MRI of the head and he says in June 2017. She does have a 20 year pack per day smoking history but quit approximately 30 years ago. She follows here locally with Dr. Soto who states she has stage III malignant melanoma and she is receiving adjuvant immunotherapy with Nivolumab. She has a Mediport placed. She was sent here to the emergency room from their office today for complaints of increasing shortness of breath. Chest x-ray reveals bilateral pleural effusion right greater than left. CT angiogram ruled out central or segmental pulmonary embolism, subsegmental branches were obscured by atelectasis. No acute findings of pneumonia. There has been interval development of mediastinal adenopathy possibly reactive although a new left upper lobe and lingular centimeter pulmonary nodules are now present. There is hepatocellular disease and at least mild volume abdominal ascites noted. She is initially requiring 15 L partial rebreather mask to maintain O2 saturations in the 90s. White count 8.5. Hemoglobin 15.0. INR 1.8. AST 1964, ALT 260, alk phos 496. She is seen today in consultation on the regular medical floor. She is awake and alert. She does have some episodes of confusion regarding her history. She is quite dyspneic on minimal exertion. No significant cough or congestion. No fever chills or night sweats. She has been initiated on bronchodilators. The patient is seen again today 01/26/2018 in follow-up on the selective care unit. He is currently sitting up in bed. She is awake and alert in no acute distress. She is breathing easier today as compared to yesterday. Intake good O2 saturations in the 90s on 4 L/m per nasal cannula. She is status post right- sided thoracentesis with approximately 1600 ML's of yellow icteric-looking fluid removed. Appears transudate of with an LDH of 148 and a total protein of 2.5. Her follow-up chest x-ray revealed near complete resolution of the right pleural effusion. No pneumothorax. Patient was reevaluated today on 01/27/2018, remains on a monitor bed, reviewed the results of her pleural effusion, seems to be transudative in nature, hence I recommended that we continue diuretics, and she was placed on oral Lasix. Follow-up chest x-ray showed hardly any reaccumulation of the right-sided pleural effusion, patient is feeling dramatically better, I removed 1600 mL of yellow icteric fluid from the right pleural space on admission. Chest x-ray was reviewed from today, and it is reassuring. No need for any thoracentesis at this point. CBC is relatively normal basic metabolic profile is normal and INR is 2.0 related to her underlying liver disease. Patient was reevaluated today on 01/28/2018, feeling much better, breathing a lot easier, pleural effusion noted to be transudative in nature, final report is pending, I believe it is mostly a fluid of congestive heart failure./ Diastolic dysfunction, final pathology on the fluid is pending. CBC is normal basic metabolic profile is normal. Liver enzymes were noted to be significantly elevated with elevated bilirubin. Objective - Vital Signs Vital signs: Vital Signs Temp 97.1 F L 01/28/18 08:30 Pulse 95 01/28/18 11:27 Resp 18 01/28/18 10:24 BP 106/74 01/28/18 08:30 Pulse Ox 93 L 01/28/18 10:24 Intake & Output 01/27/18 01/28/18 01/28/18 18:59 06:59 18:59 Intake Total 480 600 Balance 480 600 Weight 80.1 kg Intake: Oral 480 600 Other: Voiding Method Toilet Toilet Toilet # Voids 1 - Exam Physical Exam: Revealed a 62-year-old female, pleasant, in no distress. Head:, Atraumatic, normocephalic. HEENT:[Neck is supple.] [No neck masses.] [No thyromegaly.] [No JVD.] Slight icterus is noted. Moist mucous membranes. Chest: [Clear throughout, no crackles, no rhonchi, no wheezes.] Cardiac Exam: [Normal S1 and S2, no S3 gallop, no murmur.] Abdomen: [Soft, nontender, no megaly, no rebound, no guarding, normal bowel sounds.] Extremities: [No clubbing, 2+ bipedal edema, no cyanosis.] Neurological Exam: [No focal neurologic deficit. Psychiatric: Normal mood affect and mental status examination. Lymphatics: No lymphadenopathy. Musculoskeletal relatively unremarkable normal range of motion, no deformities. ] - Labs CBC & Chem 7: 01/28/18 06:20 01/28/18 06:20 Labs: Abnormal Lab Results - Last 24 Hours (Table) 01/27/18 01/27/18 01/28/18 Range/Units 16:51 20:52 05:53 RDW (11.5-15.5) % Lymphocytes # (Manual) (1.0-4.8) k/uL Chloride (98-107) mmol/L Glucose (74-99) mg/dL POC Glucose (mg/dL) 129 H 191 H 127 H (75-99) mg/dL Calcium (8.4-10.2) mg/dL Total Bilirubin (0.2-1.3) mg/dL AST (14-36) U/L ALT (9-52) U/L Alkaline Phosphatase (38-126) U/L Ammonia (<30) umol/L Total Protein (6.3-8.2) g/dL Albumin (3.5-5.0) g/dL 01/28/18 01/28/18 01/28/18 Range/Units 06:20 06:20 06:20 RDW 18.4 H (11.5-15.5) % Lymphocytes # (Manual) 0.87 L (1.0-4.8) k/uL Chloride 108 H (98-107) mmol/L Glucose 141 H (74-99) mg/dL POC Glucose (mg/dL) (75-99) mg/dL Calcium 8.3 L (8.4-10.2) mg/dL Total Bilirubin 12.7 H (0.2-1.3) mg/dL AST 666 H (14-36) U/L ALT 222 H (9-52) U/L Alkaline Phosphatase 435 H (38-126) U/L Ammonia 36 H (<30) umol/L Total Protein 6.0 L (6.3-8.2) g/dL Albumin 2.4 L (3.5-5.0) g/dL Microbiology - Last 24 Hours (Table) 01/25/18 17:00 Gram Stain - Preliminary Pleural Fluid Body Fluid Culture - Preliminary Assessment and Plan Assessment: #1 Acute hypoxic respiratory failure secondary to large bilateral pleural effusions. Status post right-sided thoracentesis with 1650 ML's of dark turbulent fluid removed. Possible metastasis. Cytology pending. Malignancy is felt to be less likely since the fluid is transudative in nature, but it is not entirely ruled out. #2 Mediastinal adenopathy. #3 Left submammary chest wall melanoma status post resection with positive lymph nodes. Stage III malignant melanoma currently receiving adjuvant immunotherapy with Nivolumab. #4 Elevated LFTs with mild ascites and coagulopathy. MRI of the liver pending. Hepatitis screen pending. #5 Fibromyalgia. #6 History of migraines. #7 History of smoking. #8 Anxiety/depression Recommendation: Agree with discharge planning, follow-up on outpatient basis. Time with Patient: Less than 30
--- NOTE | 2018-01-28 12:04 | PN ---
PROGRESS NOTE DATE OF SERVICE: January 28, 2018 Patient is a 62-year-old pleasant white female with history of malignant melanoma diagnosed in fall of 2016, who was presently on chemotherapy with Optiva that was started 2 months ago. She presented to the hospital with jaundice, weakness, shortness of breath. She was diagnosed with right-sided pleural effusion which was tapped [address] Perez. Cytology is still pending. In the meantime, she has progressive jaundice with elevated LFTs. Hepatitis serologies for A, B, and C, were ordered which are still pending. She reports some abdominal discomfort. Denies any nausea, vomiting. No fever, chills, or night sweats. She did have MRI of the liver that showed cirrhotic appearing liver with no biliary dilation. PHYSICAL EXAMINATION: Appears comfortable. No apparent distress. Vital signs are stable. Blood pressure 106/74, pulse 96, temperature 97.1. HEENT examination unremarkable. Conjunctivae pink. Sclerae anicteric. Oral cavity no lesions. Neck no JVD or lymph node enlargement. Chest was clear to auscultation. HEART: Regular rate and rhythm. ABDOMEN: Soft. Slightly distended but was soft, nontender. Bowel sounds are positive. No organomegaly. Extremities no pedal edema. Skin: No rashes. NEUROLOGICAL: She is alert and oriented x3. No focal deficits. LABS: From today, CBC is within normal limits. T-bilirubin is 12.7, AST 66, ALT 222, alkaline phosphatase 435. Hepatitis serologies for A, B, and C are still pending. CMV and EBV serologies are also pending. IMPRESSION: 1. Elevated LFTs and jaundice in this lady with history of alcohol abuse in the past. Recent MRI and CT scan showed cirrhotic appearing liver but there is significant elevation of serum transaminases as well as elevated bilirubin, which probably could be related from Optiva therapy which was started about 3 months ago for malignant melanoma, which has been on hold. Her serum transaminases are slowly trending down. However, the bilirubin remains the same. Recent MRCP did not show any evidence of biliary ductal dilation. 2. Right-sided pleural effusion for which she underwent a thoracentesis, cytology is still pending. Dr. Soto is following the patient closely. RECOMMENDATIONS: 1. Await input from Oncology. 2. No need for any endoscopy intervention at the present time in regards to the jaundice. 3. Recommend stopping the Optiva which has already been done. 4. Follow serum transaminases and bilirubin closely. 5. Await serologies for hepatitis A, B, and C. Thank you for this consultation. MMODL / IJN: [id number] /
[2018-01-28 12:16] LABS: Glucose,Whole Blood 161 mg/dL (75-99)
[2018-01-28 13:51] VITALS: BP 120/60; TEMP 97.7
== END 2018-01-28 17:44 | disposition home health service (06) | DRG 432 ==
LOC: EC 08:42 → 5MS5E 11:21 → 6SEL 18:52
PROVIDERS: ADMIT Family Medicine; ATTEND Family Medicine
PROC: 0W993ZZ Drainage of Right Pleural Cavity, Percutaneous Approach (ICD-10-PCS; principal; 2018-01-25)
DX: K70.31 Alcoholic cirrhosis of liver with ascites (principal); J96.01 Acute respiratory failure with hypoxia; C77.3 Secondary and unspecified malignant neoplasm of axilla and upper limb lymph nodes; J98.11 Atelectasis; D68.4 Acquired coagulation factor deficiency; J91.8 Pleural effusion in other conditions classified elsewhere; N39.0 Urinary tract infection, site not specified; K72.90 Hepatic failure, unspecified without coma; C43.9 Malignant melanoma of skin, unspecified; T45.1X5A Adverse effect of antineoplastic and immunosuppressive drugs, initial encounter; Z51.5 Encounter for palliative care; Z66 Do not resuscitate; M19.91 Primary osteoarthritis, unspecified site; M79.7 Fibromyalgia; F32.9 Major depressive disorder, single episode, unspecified; F41.9 Anxiety disorder, unspecified; M50.30 Other cervical disc degeneration, unspecified cervical region; R59.0 Localized enlarged lymph nodes; F10.10 Alcohol abuse, uncomplicated; M54.9 Dorsalgia, unspecified; R19.7 Diarrhea, unspecified; G43.909 Migraine, unspecified, not intractable, without status migrainosus; Z79.899 Other long term (current) drug therapy; Z87.891 Personal history of nicotine dependence; Z86.010 Personal history of colon polyps; Z98.51 Tubal ligation status; Z88.5 Allergy status to narcotic agent; Z91.048 Other nonmedicinal substance allergy status; Z80.0 Family history of malignant neoplasm of digestive organs
CPT/HCPCS: 36415; 71045; 71275; 74183; 76705; 80048; 80053; 80074; 80162; 81001; 82105; 82140; 82150; 82272; 82378; 82550; 82553; 82945; 83615; 83690; 83735; 83880; 84100; 84157; 84439; 84443; 84484; 85025; 85379; 85610; 85730; 86645; 86665; 87070; 87102; 87116; 87205; 87206; 87324; 87521; 88108; 88305; 88341; 88342; 89050; 93005; 93306; 94640; 96374; 96375; 96376; 99285

== ENCOUNTER 2018-03-08 13:28 | Inpatient (IN) | payer MEDICARE ==
[2018-03-08 14:55] LABS: Anisocytosis Moderate; Basophils % (A) 0 %; Eosinophils # (A) 0.1 k/uL (0-0.7); Eosinophils % (A) 1 %; HCT 45.4 % (34.0-46.0); HGB 14.6 gm/dL (11.4-16.0); Lymphocytes # (A) 1.2 k/uL (1.0-4.8); Lymphocytes % (A) 23 %; MCH 32.6 pg (25.0-35.0); MCHC 32.1 g/dL (31.0-37.0); MCV 101.5 fL (80.0-100.0); Macrocytosis Moderate; Mean Platelet Volume 8.4; Monocytes # (A) 0.4 k/uL (0-1.0); Monocytes % (A) 9 %; Neutrophils # (A) 3.2 k/uL (1.3-7.7); Neutrophils % (A) 64 %; Platelet Count 119 k/uL (150-450); RBC 4.48 m/uL (3.80-5.40); RDW 20.3 % (11.5-15.5)
--- NOTE | 2018-03-08 14:58 | XR ---
EXAMINATION TYPE: XR chest 2V DATE OF EXAM: 03/08/2018 COMPARISON: 01/27/2018 TECHNIQUE: PA and lateral views submitted. HISTORY: Shortness of breath FINDINGS: Bilateral infiltrate and pleural effusion. Atherosclerotic change aorta. Postsurgical change overlyin g cervical spine. The port catheter noted. No sizable pneumothorax. IMPRESSION: 1. Bilateral infiltrate and pleural effusion. Mild central venous congestion in the differential diag nosis.
[2018-03-08 15:02] LABS: INR 2.2 (<1.2); Partial Thromboplastin Time 56.3 sec (22.0-30.0); Prothrombin Time 20.2 sec (9.0-12.0)
--- NOTE | 2018-03-08 15:08 | ED ---
General Adult HPI - General Chief complaint: Shortness of Breath Stated complaint: SOB Source: patient, EMS Mode of arrival: EMS Limitations: no limitations - History of Present Illness Initial comments: Dictation was produced using [employer] dictation software. please excuse any grammatical, word or spelling errors. Chief Complaint: [id number] female past medical history of metastatic melanoma, cirrhosis presents with difficulty in breathing. History of Present Illness: Chin is a 62-year-old female presents with metastatic melanoma presents with difficulty breathing. Patient is unreliable historian at this time secondary to mental status. Patient is accompanied by significant other who reports that over the past several days patient has been having worsening shortness of breath. She is scheduled for paracentesis soon. She is currently undergoing chemotherapy. Patient also complaining of some chest pain. Since its pain as sharp and localized to the anterior chest. Denies any constitutional symptoms. The ROS documented in this emergency department record has been reviewed and confirmed by me. Those systems with pertinent positive or negative responses have been documented in the HPI. All other systems are other negative and/or noncontributory. - Related Data Home Medications Medication Instructions Recorded Confirmed ALPRAZolam [Xanax] 2 mg PO TID PRN 11/15/17 03/08/18 Digoxin 250 mcg PO DAILY 11/15/17 03/08/18 Escitalopram [Lexapro] 20 mg PO DAILY 11/15/17 03/08/18 HYDROcodone/APAP 5-325MG [[place] 1 tab PO Q6HR PRN 11/15/17 03/08/18 5-325] L.acidoph,Paracasei, B.lactis 1 cap PO DAILY 11/15/17 03/08/18 [Probiotic] Multivitamins, Thera [Multivitamin 1 tab PO DAILY 11/15/17 03/08/18 (formulary)] Temazepam [Restoril] 15 mg PO HS 11/15/17 03/08/18 Calcium Carbonate/Vitamin D3 1 tab PO DAILY 01/25/18 03/08/18 [Calcium 600-Vit D3 200 Tablet] Hydrocortisone Cream 1 applic TOPICAL BID 01/25/18 03/08/18 [Hydrocortisone 2.5% Cream] Magnesium 200 mg PO DAILY 01/25/18 03/08/18 Potassium 99 mg PO DAILY 01/25/18 03/08/18 Turmeric Root Extract [Turmeric] 500 mg PO DAILY 01/25/18 03/08/18 Ubidecarenone [Co Q-10] 100 mg PO DAILY 01/25/18 03/08/18 Previous Rx's Medication Instructions Recorded Folic Acid 1 mg PO DAILY #30 tablet 01/28/18 Furosemide [Lasix] 40 mg PO DAILY #30 tab 01/28/18 Ipratropium-Albuterol Nebulize 3 ml INHALATION RT-QID #90 01/28/18 [Duoneb 0.5 mg-3 mg/3 ml Soln] ampul.neb Lactulose [Cephulac] 20 gm PO DAILY 30 Days #900 ml 01/28/18 Thiamine [Vitamin B-1] 100 mg PO BID@1200,1700 #30 tab 01/28/18 Allergies Allergy/AdvReac Type Severity Reaction Status Date / Time adhesive tape Allergy skin tear Verified 03/08/18 14:11 codeine Allergy Nausea Verified 03/08/18 14:11 morphine Allergy Nausea Verified 03/08/18 14:11 Review of Systems ROS Statement: Those systems with pertinent positive or pertinent negative responses have been documented in the HPI. ROS Other: All systems not noted in ROS Statement are negative. Past Medical History Past Medical History: Cancer, Fibromyalgia, Hypertension, Osteoarthritis (OA), Skin Disorder Additional Past Medical History / Comment(s): Melanoma with surgery and current chemotherapy, mild edema bilateral lower legs/ankle, "irregular heart beat" but pt states never told what rhythm, lower GI bleed, benign colon polyps, constipation, cervical bulging discs with surgery, cervical and back pain/DDD, migraines in the past, falls, "my equalibrium is off." History of Any Multi-Drug Resistant Organisms: None Reported Past Surgical History: Orthopedic Surgery, Tubal Ligation Additional Past Surgical History / Comment(s): Melanoma removed from under left breast, pre skin cancer removed from back, sinus surgery, cervical surgery with donor bones, colonoscopy with 2 benign polypectomies, key carpal tunnel, left rotator cuff, infusaport to right chest Past Anesthesia/Blood Transfusion Reactions: Motion Sickness Past Psychological History: Depression Smoking Status: Former smoker - Past Family History Father Family Medical History: Cancer Additional Family Medical History / Comment(s): Father of colon cancer at the age of 88 or 89yrs. Mother Family Medical History: Unable to Obtain Additional Family Medical History / Comment(s): Pt cannot recall mother's health hx at this time. General Exam - General Exam Comments Initial Comments: PHYSICAL EXAM: General Impression: Alert and oriented x3, icteric HEENT: Normocephalic atraumatic, extra-ocular movements intact, pupils equal and reactive to light bilaterally, dry mucous membranes Cardiovascular: Tachycardic Chest: Bilateral lung crackles Abdomen: Distended abdomen with fluid wave, no tenderness Musculoskeletal: Pulses present and equal in all extremities, no peripheral edema Motor: Moves all tremors grossly Neurological: CN II-XII grossly intact, no focal motor or sensory deficits noted Skin: Yellowing of the skin Psych: Normal affect and mood Limitations: no limitations Course Vital Signs 03/08/18 03/08/18 13:31 13:42 Temperature 97.2 F L Pulse Rate 112 H Respiratory 20 20 Rate Blood Pressure 154/109 O2 Sat by Pulse 97 Oximetry Medical Decision Making - Medical Decision Making ED course: 62-year-old female with multiple comorbidities including metastatic melanoma, cirrhosis presents with difficulty in breathing. Vital signs upon arrival shows temperature 97.2, heart rate of 112, rest of vital signs within normal limits. Laboratory evaluation obtained. CBC is unremarkable. There is some macrocytic anemia. Platelets are 119. Coag panel shows elevated INR secondary to liver failure. Coag panel shows sodium 132, chloride of 97. Cranium levels mildly elevated with with the 0.57 and 54 BUN. Glucose of 52. Patient given her internal glucose. Elevated liver enzymes. Bilirubin is 10.2. Patient does appear to have some mild respiratory distress. Believe that this is likely secondary to ascites fluid. Patient likely to benefit from paracentesis. At this point paracentesis is not emergently indicated given that patient not having any unstable vital signs. No clinical suspicion of infectious issues at this time. Patient be admitted for interventional radiology to perform paracentesis. Also put gastroenterology on consult. EKG Interpretation: A 12 lead EKG was obtained. It was interpreted by myself and attending physician. There is a P wave before every QRS complex. Rate is 113. Rhythm is sinus rhythm, QRS 80, QTc 384. QT is not prolonged. No ST segment depression or elevation. - Lab Data Result diagrams: 03/08/18 14:27 03/08/18 14:27 Lab Results 03/08/18 03/08/18 03/08/18 Range/Units 14:27 14:27 14:27 WBC 5.0 (3.8-10.6) k/uL RBC 4.48 (3.80-5.40) m/uL Hgb 14.6 (11.4-16.0) gm/dL Hct 45.4 (34.0-46.0) % MCV 101.5 H (80.0-100.0) fL MCH 32.6 (25.0-35.0) pg MCHC 32.1 (31.0-37.0) g/dL RDW 20.3 H (11.5-15.5) % Plt Count 119 L (150-450) k/uL Neutrophils % 64 % Lymphocytes % 23 % Monocytes % 9 % Eosinophils % 1 % Basophils % 0 % Neutrophils # 3.2 (1.3-7.7) k/uL Lymphocytes # 1.2 (1.0-4.8) k/uL Monocytes # 0.4 (0-1.0) k/uL Eosinophils # 0.1 (0-0.7) k/uL Basophils # 0.0 (0-0.2) k/uL Anisocytosis Moderate Macrocytosis Moderate PT (9.0-12.0) sec INR (<1.2) APTT (22.0-30.0) sec Sodium 132 L (137-145) mmol/L Potassium 4.7 (3.5-5.1) mmol/L Chloride 97 L (98-107) mmol/L Carbon Dioxide 24 (22-30) mmol/L Anion Gap 11 mmol/L BUN 50 H (7-17) mg/dL Creatinine 1.57 H (0.52-1.04) mg/dL Est GFR (CKD-EPI)AfAm 41 (>60 ml/min/1.73 sqM) Est GFR (CKD-EPI)NonAf 36 (>60 ml/min/1.73 sqM) Glucose 52 L (74-99) mg/dL Calcium 8.9 (8.4-10.2) mg/dL Magnesium 2.7 H (1.6-2.3) mg/dL Total Bilirubin 10.2 H (0.2-1.3) mg/dL AST 284 H (14-36) U/L ALT 161 H (9-52) U/L Alkaline Phosphatase 309 H (38-126) U/L Ammonia (<30) umol/L Total Creatine Kinase 101 (30-135) U/L CK-MB (CK-2) 2.7 H* (0.0-2.4) ng/mL CK-MB (CK-2) Rel Index 2.7 Troponin I 0.020 (0.000-0.034) ng/mL Total Protein 6.4 (6.3-8.2) g/dL Albumin 2.3 L (3.5-5.0) g/dL 03/08/18 03/08/18 Range/Units 14:27 14:27 WBC (3.8-10.6) k/uL RBC (3.80-5.40) m/uL Hgb (11.4-16.0) gm/dL Hct (34.0-46.0) % MCV (80.0-100.0) fL MCH (25.0-35.0) pg MCHC (31.0-37.0) g/dL RDW (11.5-15.5) % Plt Count (150-450) k/uL Neutrophils % % Lymphocytes % % Monocytes % % Eosinophils % % Basophils % % Neutrophils # (1.3-7.7) k/uL Lymphocytes # (1.0-4.8) k/uL Monocytes # (0-1.0) k/uL Eosinophils # (0-0.7) k/uL Basophils # (0-0.2) k/uL Anisocytosis Macrocytosis PT 20.2 H (9.0-12.0) sec INR 2.2 H (<1.2) APTT 56.3 H (22.0-30.0) sec Sodium (137-145) mmol/L Potassium (3.5-5.1) mmol/L Chloride (98-107) mmol/L Carbon Dioxide (22-30) mmol/L Anion Gap mmol/L BUN (7-17) mg/dL Creatinine (0.52-1.04) mg/dL Est GFR (CKD-EPI)AfAm (>60 ml/min/1.73 sqM) Est GFR (CKD-EPI)NonAf (>60 ml/min/1.73 sqM) Glucose (74-99) mg/dL Calcium (8.4-10.2) mg/dL Magnesium (1.6-2.3) mg/dL Total Bilirubin (0.2-1.3) mg/dL AST (14-36) U/L ALT (9-52) U/L Alkaline Phosphatase (38-126) U/L Ammonia 46 H (<30) umol/L Total Creatine Kinase (30-135) U/L CK-MB (CK-2) (0.0-2.4) ng/mL CK-MB (CK-2) Rel Index Troponin I (0.000-0.034) ng/mL Total Protein (6.3-8.2) g/dL Albumin (3.5-5.0) g/dL Disposition Clinical Impression: Dyspnea Disposition: ADMITTED IP TO THIS HOSP Referrals: Gonzales Huerta MD [Primary Care Provider] - 1-2 days Decision Time: 16:39
[2018-03-08 15:09] LABS: Albumin 2.3 g/dL (3.5-5.0); Calcium 8.9 mg/dL (8.4-10.2); Magnesium 2.7 mg/dL (1.6-2.3); Potassium 4.7 mmol/L (3.5-5.1); Total Bilirubin 10.2 mg/dL (0.2-1.3); Total Protein 6.4 g/dL (6.3-8.2)
[2018-03-08 15:25] LABS: Troponin I 0.02 ng/mL (0.000-0.034)
[2018-03-08 15:28] LABS: Creatine Kinase MB 2.7 ng/mL (0.0-2.4)
[2018-03-08] MEDS ORDERED: DEXTROSE 10 % IN WATER 250 ML IV STA (16:34)
[2018-03-08] MEDS ORDERED: NALOXONE 0.4 MG/ML 1 ML VIAL IV PRN (16:39)
[2018-03-08] MEDS ORDERED: LACTULOSE 20 GM/30 ML CUP PO ONE (16:41)
[2018-03-08] MEDS ORDERED: SODIUM CHLORIDE 0.9% 1,000 ML IV STA (16:41)
--- NOTE | 2018-03-08 16:41 | CT ---
EXAMINATION TYPE: CT brain wo con DATE OF EXAM: 03/08/2018 COMPARISON: None HISTORY: Patient appears confused. CT DLP: 1156 mGycm Automated exposure control for dose reduction was used. FINDINGS: Ventricles of normal size. There is cerebral cortical atrophy. There is no mass effect nor midline sh ift. There is no sign of intracranial hemorrhage. Exam is limited slightly by motion. Calvarium is in tact. IMPRESSION: MILD CEREBRAL ATROPHY. OTHERWISE NEGATIVE EXAM.
[2018-03-08] MEDS ORDERED: DEXTROSE 50%-WATER 50 ML SYRINGE IVP STA (16:46)
[2018-03-08 16:48] LABS: Glucose,Whole Blood 48 mg/dL (75-99)
[2018-03-08 17:05] LABS: Glucose,Whole Blood 93 mg/dL (75-99)
[2018-03-08] MEDS: DEXTROSE 10 % IN WATER 500 ML IV STA ×2 (17:08→18:29)
[2018-03-08] MEDS: THIAMINE 100 MG TAB PO SCH (18:29)
[2018-03-08 21:23] LABS: Glucose,Whole Blood 87 mg/dL (75-99)
[2018-03-08 23:52] LABS: Appearance,Urine Turbid (Clear); Bacteria,Urine Many /hpf; Bilirubin,Urine 2+ (Negative); Blood,Urine Large (Negative); Color,Urine Dark Brown; Glucose,Urine (UA) Negative (Negative); Hyaline Casts,Urine 41 /lpf (0-2); Ketones,Urine Trace (Negative); Leukocyte Esterase,Urine Small (Negative); Mucus,Urine Few /hpf; Nitrite,Urine Negative (Negative); PH, Urine 5.5 (5.0-8.0); Protein,Urine 1+ (Negative); RBC,Urine 2 /hpf (0-5); Specific Gravity,Urine 1.017 (1.001-1.035); Squamous Epithelial Cell,Urine 27 /hpf (0-4); WBC,Urine 17 /hpf (0-5)
[2018-03-09 07:32] LABS: Glucose,Whole Blood 78 mg/dL (75-99)
[2018-03-09] MEDS: DIGOXIN 250 MCG TAB PO SCH (08:28)
[2018-03-09] MEDS ORDERED: MAGNESIUM OXIDE 400 MG TAB PO SCH (09:00)
[2018-03-09] MEDS ORDERED: LACTULOSE 20 GM/30 ML CUP PO SCH (09:00)
[2018-03-09 09:26] LABS: INR 2.2 (<1.2); Prothrombin Time 19.7 sec (9.0-12.0)
[2018-03-09 09:35] LABS: Mean Platelet Volume 7.5
[2018-03-09 09:41] LABS: Platelet Count 92 k/uL (150-450)
[2018-03-09 10:43] LABS: VBG PH 7.47 (7.31-7.41)
--- NOTE | 2018-03-09 10:55 | US ---
EXAMINATION TYPE: US abdomen limited DATE OF EXAM: 03/09/2018 COMPARISON: NONE CLINICAL HISTORY: assess for ascitic fluid. oncology patient with distended abd Only able to assess right side of abdomen because patient began vomiting during procedure. There was moderate fluid on the right IMPRESSION: Limited ultrasound demonstrates evidence of ascites.
[2018-03-09 11:09] LABS: Glucose,Whole Blood 80 mg/dL (75-99)
--- NOTE | 2018-03-09 11:55 | XR ---
EXAMINATION TYPE: XR chest 1V portable DATE OF EXAM: 03/09/2018 COMPARISON: 03/08/2018 HISTORY: Chest pain and difficulty breathing TECHNIQUE: Single frontal view of the chest is obtained. FINDINGS: Bilateral infiltrate and pleural effusion. Atherosclerotic change aorta. Postsurgical mcadams ge overlying cervical spine. The port catheter noted. No sizable pneumothorax. IMPRESSION: Bilateral infiltrate and pleural effusion are stable. Mild central venous congestion in the differential diagnosis.
[2018-03-09] MEDS: FOLIC ACID 1 MG TAB PO SCH (13:59)
[2018-03-09] MEDS: THIAMINE 100 MG TAB PO SCH ×2 (13:59→18:11)
--- NOTE | 2018-03-09 16:14 | P.CNPUL ---
History of Present Illness Consult date: 03/09/18 Requesting physician: Sean Burgess Reason for consult: dyspnea, abnormal CXR/CT Chief complaint: Shortness of breath History of present illness: This is a very pleasant 8-year-old female patient who follows with Dr. trevor Negrete as her primary care physician. She has a history of fibromyalgia, osteoarthritis, migraines, depression. She was has a history of left submammary chest wall malignant melanoma and she had a wide excision on 2016. She had been seen at the [facility] for further skin excision in May 2017 and lymph nodes were positive for metastatic disease. She had been receiving Opdivo. We had seen the patient approximate one month ago here at the hospital for an acute hypoxic respiratory failure secondary to large bilateral pleural effusions. She is status post right-sided thoracentesis with 1650 MLS of dark turbulent fluid removed. Fluid was negative for malignancy. She was discharged on 01/28/2018. She presented here to the emergency room yesterday with complaints of increasing shortness of breath that had been worsening over the past several days. She had been scheduled for a paracentesis secondary to cirrhosis in the outpatient setting. Abdominal ultrasound revealed moderate fluid on the right of an incomplete study secondary to vomiting. Chest x-ray shows bilateral infiltrates with pleural effusions and mild venous congestion. Computed tomography scan of the brain revealed mild cerebral atrophy but otherwise negative. She is seen today in consultation on the oncology unit. She is currently quite weak and fatigued. She is dyspneic with minimal exertion. She has saturating in the low 90s on 4 L/m per nasal cannula. She's been afebrile. Slightly tachycardic. Slightly tachypneic. White count 5.0. Hemoglobin 14.6. INR 2.2. Creatinine 1.57. AST 284, ALT 161. Urine has many bacteria. Review of Systems ROS unobtainable: due to mental status Past Medical History Past Medical History: Cancer, Fibromyalgia, Hypertension, Osteoarthritis (OA), Skin Disorder Additional Past Medical History / Comment(s): Melanoma with surgery and current chemotherapy, mild edema bilateral lower legs/ankle, "irregular heart beat" but pt states never told what rhythm, lower GI bleed, benign colon polyps, constipation, cervical bulging discs with surgery, cervical and back pain/DDD, migraines in the past, falls, "my equalibrium is off." january 2018-pleural effusion/throacentesis. History of Any Multi-Drug Resistant Organisms: None Reported Past Surgical History: Orthopedic Surgery, Tubal Ligation Additional Past Surgical History / Comment(s): Melanoma removed from under left breast, pre skin cancer removed from back, sinus surgery, cervical surgery with donor bones, colonoscopy with 2 benign polypectomies, key carpal tunnel, left rotator cuff, infusaport to right chest, 7-19-18 rt sided thoracentesis Past Anesthesia/Blood Transfusion Reactions: Motion Sickness Past Psychological History: Depression Additional Psychological History / Comment(s): Pt resides with her spouse who also has health problems. Pt recently started using a 4 prong cane. She has not been driving, her spouse drives. She has had home health care in the past but none lately. She manages her own medication. Smoking Status: Former smoker Past Alcohol Use History: Daily Additional Past Alcohol Use History / Comment(s): Pt states she started smoking in 1974 and was less than a ppd smoker and would quit off and on for up to a year before quitting for good in 2007. Pt states she used to drink 6 glasses of wine a day but quit 2015 Past Drug Use History: Marijuana Additional Drug Use History / Comment(s): Pt smoked marijuana in the past but not for many years. - Past Family History Father Family Medical History: Cancer Additional Family Medical History / Comment(s): Father of colon cancer at the age of 88 or 89yrs. Mother Family Medical History: Unable to Obtain Additional Family Medical History / Comment(s): Pt cannot recall mother's health hx at this time. Medications and Allergies Home Medications Medication Instructions Recorded Confirmed Type ALPRAZolam [Xanax] 2 mg PO TID PRN 11/15/17 03/08/18 History Digoxin 250 mcg PO DAILY 11/15/17 03/08/18 History Escitalopram [Lexapro] 20 mg PO DAILY 11/15/17 03/08/18 History HYDROcodone/APAP 5-325MG [[place] 1 tab PO Q6HR PRN 11/15/17 03/08/18 History 5-325] L.acidoph,Paracasei, B.lactis 1 cap PO DAILY 11/15/17 03/08/18 History [Probiotic] Multivitamins, Thera [Multivitamin 1 tab PO DAILY 11/15/17 03/08/18 History (formulary)] Temazepam [Restoril] 15 mg PO HS 11/15/17 03/08/18 History Calcium Carbonate/Vitamin D3 1 tab PO DAILY 01/25/18 03/08/18 History [Calcium 600-Vit D3 200 Tablet] Hydrocortisone Cream 1 applic TOPICAL BID 01/25/18 03/08/18 History [Hydrocortisone 2.5% Cream] Magnesium 200 mg PO DAILY 01/25/18 03/08/18 History Potassium 99 mg PO DAILY 01/25/18 03/08/18 History Turmeric Root Extract [Turmeric] 500 mg PO DAILY 01/25/18 03/08/18 History Ubidecarenone [Co Q-10] 100 mg PO DAILY 01/25/18 03/08/18 History Folic Acid 1 mg PO DAILY #30 tablet 01/28/18 03/08/18 Rx Furosemide [Lasix] 40 mg PO DAILY #30 tab 01/28/18 03/08/18 Rx Ipratropium-Albuterol Nebulize 3 ml INHALATION RT-QID #90 01/28/18 03/08/18 Rx [Duoneb 0.5 mg-3 mg/3 ml Soln] ampul.neb Lactulose [Cephulac] 20 gm PO DAILY 30 Days #900 ml 01/28/18 03/08/18 Rx Thiamine [Vitamin B-1] 100 mg PO BID@1200,1700 #30 tab 01/28/18 03/08/18 Rx Allergies Allergy/AdvReac Type Severity Reaction Status Date / Time adhesive tape Allergy skin tear Verified 03/08/18 14:11 codeine Allergy Nausea Verified 03/08/18 14:11 morphine Allergy Nausea Verified 03/08/18 14:11 Physical Exam Vitals: Vital Signs Temp Pulse Pulse Resp BP BP Pulse Ox 03/09/18 09:44 100 38 H 102/67 89 L 03/09/18 08:00 100 38 H 03/09/18 06:36 97.5 F L 90 17 105/64 93 L 03/08/18 21:15 97.4 F L 96 18 103/59 92 L 03/08/18 16:34 93 18 101/51 97 Intake and Output 03/09/18 03/09/18 03/09/18 06:59 14:59 22:59 Intake Total 250 Balance 250 Intake: Oral 250 Other: Voiding Method Bedpan # Voids 1 1 - Constitutional General appearance: average body habitus - EENT Eyes: EOMI, PERRLA ENT: hearing grossly normal Ears: bilateral: normal - Neck Neck: normal ROM Carotids: bilateral: upstroke normal Thyroid: bilateral: normal size - Respiratory Respiratory: bilateral: rales - Cardiovascular Rhythm: regular Heart sounds: normal: S1, S2 - Gastrointestinal General gastrointestinal: distended, normal bowel sounds - Integumentary Integumentary: normal turgor - Neurologic Neurologic: CNII-XII intact - Musculoskeletal Musculoskeletal: generalized weakness - Psychiatric Psychiatric: A&O x's 3 Results - Laboratory Findings CBC and BMP: 03/09/18 09:14 03/08/18 14:27 PT/INR, D-dimer PT 19.7 sec (9.0-12.0) H 03/09/18 09:14 INR 2.2 (<1.2) H 03/09/18 09:14 Abnormal lab findings: Abnormal Labs 03/08/18 03/08/18 03/08/18 14:27 14:27 14:27 MCV 101.5 H RDW 20.3 H Plt Count 119 L PT INR APTT VBG pH Sodium 132 L Chloride 97 L BUN 50 H Creatinine 1.57 H Glucose 52 L POC Glucose (mg/dL) Magnesium 2.7 H Total Bilirubin 10.2 H AST 284 H ALT 161 H Alkaline Phosphatase 309 H Ammonia CK-MB (CK-2) 2.7 H* Albumin 2.3 L Urine Appearance Urine Protein Urine Ketones Urine Blood Urine Bilirubin Ur Leukocyte Esterase Urine WBC Ur Squamous Epith Cells Urine Bacteria Hyaline Casts Urine Mucus 03/08/18 03/08/18 03/08/18 14:27 14:27 16:44 MCV RDW Plt Count PT 20.2 H INR 2.2 H APTT 56.3 H VBG pH Sodium Chloride BUN Creatinine Glucose POC Glucose (mg/dL) 48 L Magnesium Total Bilirubin AST ALT Alkaline Phosphatase Ammonia 46 H CK-MB (CK-2) Albumin Urine Appearance Urine Protein Urine Ketones Urine Blood Urine Bilirubin Ur Leukocyte Esterase Urine WBC Ur Squamous Epith Cells Urine Bacteria Hyaline Casts Urine Mucus 03/08/18 03/09/18 03/09/18 Unknown 09:14 09:14 MCV RDW Plt Count 92 L PT 19.7 H INR 2.2 H APTT VBG pH Sodium Chloride BUN Creatinine Glucose POC Glucose (mg/dL) Magnesium Total Bilirubin AST ALT Alkaline Phosphatase Ammonia CK-MB (CK-2) Albumin Urine Appearance Turbid H Urine Protein 1+ H Urine Ketones Trace H Urine Blood Large H Urine Bilirubin 2+ H Ur Leukocyte Esterase Small H Urine WBC 17 H Ur Squamous Epith Cells 27 H Urine Bacteria Many H Hyaline Casts 41 H Urine Mucus Few H 03/09/18 10:28 MCV RDW Plt Count PT INR APTT VBG pH 7.47 H Sodium Chloride BUN Creatinine Glucose POC Glucose (mg/dL) Magnesium Total Bilirubin AST ALT Alkaline Phosphatase Ammonia CK-MB (CK-2) Albumin Urine Appearance Urine Protein Urine Ketones Urine Blood Urine Bilirubin Ur Leukocyte Esterase Urine WBC Ur Squamous Epith Cells Urine Bacteria Hyaline Casts Urine Mucus - Diagnostic Findings Chest x-ray: image reviewed Assessment and Plan Assessment: Impression: #1 Acute hypoxic respiratory failure secondary to bilateral neural effusions/ infiltrates. She did undergo a right-sided thoracentesis in January 2018 that was negative for malignancy. There was noted mediastinal adenopathy and new left upper lobe and lingular centimeter pulmonary nodules on a computed tomography scan in 01/25/2018. #2 Abdominal distention secondary to ascites with elevated LFTs and coagulopathy with an INR 2.2. #3 Altered mental status secondary to above. Computed tomography scan negative for any acute abnormalities. #4 Left submammary chest wall melanoma with metastasis. Had undergone surgical resection at the [facility]. Stage III currently receiving adjuvant immunotherapy in the form of Opdivo. #5 Urinary tract infection. #6 Fibromyalgia. #7 History of chronic tobacco dependence. #8 History of migraines. #19 Anxiety/depression. Plan: The patient was seen and evaluated by Dr. Perez. Chest x-ray and abdominal ultrasound were reviewed. The patient may benefit from a paracentesis. No need for ultrasound of the chest at this time. No plans for thoracentesis at this time. We'll continue to titrate down the FiO2 will maintaining O2 saturations greater than 90%. We will continue to follow and make further recommendations based on her clinical status. I, the cosigning physician, performed a history & physical examination of the patient. Lungs sounds have crackles in the posterior bases, diminished. Maintaining good O2 saturations in the 90s on 4 L/m per nasal cannula. I discussed the assessment and plan of care with my nurse practitioner, Lissette Candelaria. I attest to the above consultation as dictated by her. Time with Patient: Greater than 30
[2018-03-09 16:49] LABS: Glucose,Whole Blood 72 mg/dL (75-99)
--- NOTE | 2018-03-09 18:08 | P.HPIM ---
History of Present Illness H&P Date: 03/09/18 Date of service-03/09/2080 Presenting complaint-short of breath History of present complaint: 62-year-old female with history of metastatic melanoma. In March 2017 chief onto her left submammary chest wall nodule that was biopsied and found to have Luis Alberto's level V malignant melanoma. Certainly she had wide excision in April 2017 was 4 mm depth all margins were negative. Then she went to use to [place] which it for the skin excision on May 2017 and March showed metastatic disease. Then in September 2017 she had "dissection and he was to [place] and now for the metastatic melanoma in 2089. Tested. Also in June [address] of the chest abdomen and pelvis and negative MRI of the brain. She had received Opdiva. I would a month ago she was in the hospital to bilateral pleural effusion. Had 1650 of right-sided thoracentesis done. Fluid was negative for malignancy. Was discharged on January 28. She now presents with worsening shortness of breath going on for last several days. Was scheduled for a paracentesis secondary to cirrhosis of the outpatient setting. Appetite is gone down weak and tired but confused. Worsening ascites. Sister is present here by the bedside. Patient is rather tired. Unable to give much of a history. On the last admission patient also was felt to have alcoholic cirrhosis. Patient did have ultrasound and MRi of the liver. Review of systems: GEN.: Weak and tired, decreased appetite EYES: None HEENT: None NECK: None RESPIRATORY: Short of breath CARDIOVASCULAR: None GASTROINTESTINAL: Distended abdomen GENITOURINARY: None MUSCULOSKELETAL: None LYMPHATICS: None HEMATOLOGICAL: None PSYCHIATRY: None NEUROLOGICAL: Lethargic VITAL SIGNS: 97.2, 112, 20, 154/109, 97% on 4 L upon presentation GENERAL: BMI 30.7, well built, laying in bed lethargic. EYES: Pupils equal. Conjunctiva palel. HEENT: External appearance of nose and ears normal, oral cavity grossly normal. NECK: JVD unable to assess; masses not palpable. HEART: First and second heart sounds are normal; gross edema. LUNGS: Respiratory rate increased, diminished breath sounds. ABDOMEN: Soft, distended, minimally tender, liver spleen not palpable, no masses palpable. LYMPHATICS: No lymph nodes palpable in the axilla and neck. PSYCH: Lethargic but arousable. Able to answer some questions.lAngeline NEUROLOGICAL: Cranial nerves grossly intact; no facial asymmetry, power and sensation grossly intact. Investigations: In the context of clinical assessment and plan Pro time 20.2, potassium 4.7, BUN 50, creatinine 1.7, bilirubin 10.2, Chest x-ray-fell and abraded by me shows bilateral pleural effusions right greater than left EKG-tracing interpreted by me shows possibly accelerated junctional rhythm Abdominal ultrasound-ascites Assessment: -Malignant melanoma metastatic, treated patient received immunosuppressive therapy with opdiva -Hepatic cirrhosis likely secondary to alcoholic liver disease resulting in portal hypertension and increasing ascites. -Acute hypoxic respiratory failure from pleural effusion -Acute metabolic encephalopathy likely hepatic, patient to be treated with lactulose Chronic fibromyalgia -cervical and Lumbar DJD -Depression not otherwise specified - uses a 4 prong cane at home -Hyper bilirubinemia from likely intrahepatic cholestasis -Prolonged pro time likely from vitamin K deficiency and liver disease -Obesity BMI 30.7 Plan: Patient be put on vitamin K. Awaiting therapeutic paracentesis. Consultation to pulmonary, oncology, GI is being done. Patient's sister was at the bedside. Discussed with her. Prognosis guarded. Do neuro checks. Discussed the Dr. Dee. We will give 2 units of FFP on-call for paracentesis. Has vitamin K will not necessarily affect a pro time in this case. We'll give 10 mg vitamin K by mouth daily starting today. Past Medical History Past Medical History: Cancer, Fibromyalgia, Hypertension, Osteoarthritis (OA), Skin Disorder Additional Past Medical History / Comment(s): Melanoma with surgery and current chemotherapy, mild edema bilateral lower legs/ankle, "irregular heart beat" but pt states never told what rhythm, lower GI bleed, benign colon polyps, constipation, cervical bulging discs with surgery, cervical and back pain/DDD, migraines in the past, falls, "my equalibrium is off." january 2018-pleural effusion/throacentesis. History of Any Multi-Drug Resistant Organisms: None Reported Past Surgical History: Orthopedic Surgery, Tubal Ligation Additional Past Surgical History / Comment(s): Melanoma removed from under left breast, pre skin cancer removed from back, sinus surgery, cervical surgery with donor bones, colonoscopy with 2 benign polypectomies, key carpal tunnel, left rotator cuff, infusaport to right chest, 01-25- rt sided thoracentesis Past Anesthesia/Blood Transfusion Reactions: Motion Sickness Past Psychological History: Depression Additional Psychological History / Comment(s): Pt resides with her spouse who also has health problems. Pt recently started using a 4 prong cane. She has not been driving, her spouse drives. She has had home health care in the past but none lately. She manages her own medication. Smoking Status: Former smoker Past Alcohol Use History: Daily Additional Past Alcohol Use History / Comment(s): Pt states she started smoking in 1974 and was less than a ppd smoker and would quit off and on for up to a year before quitting for good in 2007. Pt states she used to drink 6 glasses of wine a day but quit 2015 Past Drug Use History: Marijuana Additional Drug Use History / Comment(s): Pt smoked marijuana in the past but not for many years. - Past Family History Father Family Medical History: Cancer Additional Family Medical History / Comment(s): Father of colon cancer at the age of 88 or 89yrs. Mother Family Medical History: Unable to Obtain Additional Family Medical History / Comment(s): Pt cannot recall mother's health hx at this time. Medications and Allergies Home Medications Medication Instructions Recorded Confirmed Type ALPRAZolam [Xanax] 2 mg PO TID PRN 11/15/17 03/08/18 History Digoxin 250 mcg PO DAILY 11/15/17 03/08/18 History Escitalopram [Lexapro] 20 mg PO DAILY 11/15/17 03/08/18 History HYDROcodone/APAP 5-325MG [[place] 1 tab PO Q6HR PRN 11/15/17 03/08/18 History 5-325] L.acidoph,Paracasei, B.lactis 1 cap PO DAILY 11/15/17 03/08/18 History [Probiotic] Multivitamins, Thera [Multivitamin 1 tab PO DAILY 11/15/17 03/08/18 History (formulary)] Temazepam [Restoril] 15 mg PO HS 11/15/17 03/08/18 History Calcium Carbonate/Vitamin D3 1 tab PO DAILY 01/25/18 03/08/18 History [Calcium 600-Vit D3 200 Tablet] Hydrocortisone Cream 1 applic TOPICAL BID 01/25/18 03/08/18 History [Hydrocortisone 2.5% Cream] Magnesium 200 mg PO DAILY 01/25/18 03/08/18 History Potassium 99 mg PO DAILY 01/25/18 03/08/18 History Turmeric Root Extract [Turmeric] 500 mg PO DAILY 01/25/18 03/08/18 History Ubidecarenone [Co Q-10] 100 mg PO DAILY 01/25/18 03/08/18 History Folic Acid 1 mg PO DAILY #30 tablet 01/28/18 03/08/18 Rx Furosemide [Lasix] 40 mg PO DAILY #30 tab 01/28/18 03/08/18 Rx Ipratropium-Albuterol Nebulize 3 ml INHALATION RT-QID #90 01/28/18 03/08/18 Rx [Duoneb 0.5 mg-3 mg/3 ml Soln] ampul.neb Lactulose [Cephulac] 20 gm PO DAILY 30 Days #900 ml 01/28/18 03/08/18 Rx Thiamine [Vitamin B-1] 100 mg PO BID@1200,1700 #30 tab 01/28/18 03/08/18 Rx Allergies Allergy/AdvReac Type Severity Reaction Status Date / Time adhesive tape Allergy skin tear Verified 03/08/18 14:11 codeine Allergy Nausea Verified 03/08/18 14:11 morphine Allergy Nausea Verified 03/08/18 14:11 Results CBC & Chem 7: 03/09/18 09:14 03/08/18 14:27 Thrombosis Risk Factor Assmnt - Choose All That Apply Any of the Below Risk Factors Present?: Yes Each Factor Represents 1 point: Age 41-60 years, Obesity (BMI >25), Swollen legs (current) Other Risk Factors: Yes Each Risk Factor Represents 2 Points: Central venous access Other congenital or acquired thrombophilia - If yes, enter type in comment: No Thrombosis Risk Factor Assessment Total Risk Factor Score: 5 Thrombosis Risk Factor Assessment Level: High Risk
[2018-03-09] MEDS: LACTULOSE 20 GM/30 ML CUP PO SCH ×2 (18:11→23:34)
[2018-03-09] MEDS: PHYTONADIONE ORAL 5 MG/5 ML ORAL.SYRG PO SCH (20:25)
[2018-03-09 20:38] LABS: Glucose,Whole Blood 76 mg/dL (75-99)
[2018-03-09] MEDS: IPRATROPIUM-ALBUTEROL 3 ML NEB INHALATION SCH (20:42)
[2018-03-09] MEDS ORDERED: Phenol 1.4% Sore Throat Spray Bottle MUCOUS MEM PRN (23:04)
--- NOTE | 2018-03-09 23:17 | XR ---
EXAMINATION TYPE: XR abdomen 1V DATE OF EXAM: 03/09/2018 COMPARISON: NONE HISTORY: Tube placement TECHNIQUE: Single view FINDINGS: There is nasogastric tube with the tip in the distal stomach. There is no sign of intestina l obstruction or pneumoperitoneum. There is blunting of costophrenic angles. IMPRESSION: Nasogastric tube appears in good position. Bilateral pleural effusions.
[2018-03-10 06:42] LABS: Glucose,Whole Blood 87 mg/dL (75-99)
[2018-03-10] MEDS ORDERED: LIDOCAINE 1% INJ 10MG/ML (20 ML MDV) SQ ONE (07:28)
[2018-03-10] MEDS: IPRATROPIUM-ALBUTEROL 3 ML NEB INHALATION SCH ×4 (07:42→20:04)
[2018-03-10] MEDS: LACTULOSE 20 GM/30 ML CUP PO SCH ×4 (10:32→22:00)
[2018-03-10] MEDS: DIGOXIN 250 MCG TAB PO SCH (10:32)
--- NOTE | 2018-03-10 11:32 | P.PN ---
Subjective Progress Note Date: 03/10/18 Principal diagnosis: Acute hypoxic respiratory failure secondary to bilateral pleural effusions/ infiltrates. This is a very pleasant 62-year-old female patient who follows with Dr. trevor Negrete as her primary care physician. She has a history of fibromyalgia, osteoarthritis, migraines, depression. She was has a history of left submammary chest wall malignant melanoma and she had a wide excision on 2016. She had been seen at the [facility] for further skin excision in May 2017 and lymph nodes were positive for metastatic disease. She had been receiving Opdivo. We had seen the patient approximate one month ago here at the hospital for an acute hypoxic respiratory failure secondary to large bilateral pleural effusions. She is status post right-sided thoracentesis with 1650 MLS of dark turbulent fluid removed. Fluid was negative for malignancy. She was discharged on 01/28/2018. She presented here to the emergency room yesterday with complaints of increasing shortness of breath that had been worsening over the past several days. She had been scheduled for a paracentesis secondary to cirrhosis in the outpatient setting. Abdominal ultrasound revealed moderate fluid on the right of an incomplete study secondary to vomiting. Chest x-ray shows bilateral infiltrates with pleural effusions and mild venous congestion. Computed tomography scan of the brain revealed mild cerebral atrophy but otherwise negative. She is seen today in consultation on the oncology unit. She is currently quite weak and fatigued. She is dyspneic with minimal exertion. She has saturating in the low 90s on 4 L/m per nasal cannula. She's been afebrile. Slightly tachycardic. Slightly tachypneic. White count 5.0. Hemoglobin 14.6. INR 2.2. Creatinine 1.57. AST 284, ALT 161. Urine has many bacteria. The patient is seen again today on the oncology unit. She continues to have some dyspnea on minimal exertion. She is on 5 L/m per nasal cannula to maintain O2 saturations in the 90s. She's been afebrile. Slightly tachycardic. Did have ongoing issues with nausea and vomiting and an nasogastric tube was inserted last evening. She is to undergo ultrasound- guided paracentesis per interventional radiology today. Objective - Vital Signs Vital signs: Vital Signs Temp 97.4 F L 03/10/18 07:23 Pulse 100 09/01/18 09:22 Resp 18 03/10/18 09:22 BP 97/59 03/10/18 09:22 Pulse Ox 90 L 03/10/18 09:22 Intake & Output 03/09/18 03/10/18 03/10/18 18:59 06:59 18:59 Intake Total 250 300 308 Output Total 60 4400 Balance 250 240 -4092 Weight 108.862 kg Intake: Oral 250 300 Blood Product 308 Ffp 24 Cpd Unit 308 [id number] Output: Urine 60 Other 4400 Other: Voiding Method Bedpan Bedpan # Voids 1 0 - Exam - Constitutional General appearance: average body habitus - EENT Eyes: EOMI, PERRLA ENT: hearing grossly normal Ears: bilateral: normal - Neck Neck: normal ROM Carotids: bilateral: upstroke normal Thyroid: bilateral: normal size - Respiratory Respiratory: bilateral: rales - Cardiovascular Rhythm: regular Heart sounds: normal: S1, S2 - Gastrointestinal General gastrointestinal: distended, normal bowel sounds - Integumentary Integumentary: normal turgor - Neurologic Neurologic: CNII-XII intact - Musculoskeletal Musculoskeletal: generalized weakness - Psychiatric Psychiatric: A&O x's 3 - Labs CBC & Chem 7: 03/09/18 09:14 03/08/18 14:27 Labs: Abnormal Lab Results - Last 24 Hours (Table) 03/09/18 Range/Units 16:46 POC Glucose (mg/dL) 72 L (75-99) mg/dL Microbiology - Last 24 Hours (Table) 03/08/18 14:27 Blood Culture - Preliminary Blood No Growth after 24 hours Assessment and Plan Assessment: Impression: #1 Acute hypoxic respiratory failure secondary to bilateral neural effusions/ infiltrates. She did undergo a right-sided thoracentesis in January 2018 that was negative for malignancy. There was noted mediastinal adenopathy and new left upper lobe and lingular centimeter pulmonary nodules on a computed tomography scan in 01/25/2018. #2 Abdominal distention secondary to ascites with elevated LFTs and coagulopathy with an INR 2.2. Having ultrasound-guided paracentesis today. #3 Altered mental status secondary to above. Computed tomography scan negative for any acute abnormalities. #4 Left submammary chest wall melanoma with metastasis. Had undergone surgical resection at the [facility]. Stage III currently receiving adjuvant immunotherapy in the form of Opdivo. #5 Urinary tract infection. #6 Fibromyalgia. #7 History of chronic tobacco dependence. #8 History of migraines. #19 Anxiety/depression. Plan: The patient was seen and evaluated by Dr. Perez. We'll continue to titrate down the FiO2 will maintaining O2 saturations greater than 90%. Hopefully her pulmonary status will improve post paracentesis. No immediate plans for thoracentesis at this time. We will continue to follow and make further recommendations based on her clinical status. I, the cosigning physician, performed a history & physical examination of the patient. Lungs sounds have crackles in the posterior bases, diminished. Maintaining good O2 saturations in the 90s on 5 L/m per nasal cannula. I discussed the assessment and plan of care with my nurse practitioner, Lissette Candelaria. I attest to the above consultation as dictated by her.
[2018-03-10 11:33] LABS: Glucose,Whole Blood 93 mg/dL (75-99)
[2018-03-10] MEDS: PHYTONADIONE ORAL 5 MG/5 ML ORAL.SYRG PO SCH (12:42)
--- NOTE | 2018-03-10 12:42 | CONS ---
CONSULTATION REQUESTING PHYSICIAN: Dr. Burgess. REASON FOR CONSULTATION: Ascites and jaundice. HISTORY OF PRESENT ILLNESS: The patient is the patient is a 62-year-old pleasant white female diagnosed with metastatic melanoma in May of 2017. She initially presented with chest wall mass which was excised in April of 2017. Two months later she was noted to have positive lymph nodes suggestive of metastatic disease. She received chemotherapy through Dr. Soto. She was admitted to the hospital in January of 2018 with pleural effusion and underwent right-sided paracentesis, but the cytology was negative. During that hospitalization, she was also noted to have severe jaundice with elevated LFTs and I saw the patient in consultation on January 26, 2018. She did have a CT of the abdomen and pelvis done during that hospitalization which showed nodular appearing liver related to cirrhosis and the most likely etiology was thought to be related to prior history of alcohol use. Hepatitis serologies for A, B, and C were negative. Also, she was noted to have elevated LFTs with ALT and AST with AST in the range of 1900 and ALT 252. Bilirubin was 14.0 and the most likely etiology was thought to be related to oral chemotherapy medication that was started 3 months earlier which has been on hold since then. However, during this hospitalization, she continues to remain jaundiced and serum transaminases remain elevated. On further questioning patient is not able to give a proper history. She appears to be somewhat confused. During this hospitalization, she did have ultrasound of the abdomen done that showed evidence of ascites and she just underwent large volume paracentesis by Interventional Radiology and approximately 3 L of fluid was removed that was sent for cytology. She complains of extreme tiredness, weakness, not feeling well, diffuse abdominal pain, some nausea but no emesis. PAST MEDICAL HISTORY: Significant for metastatic melanoma diagnosed in April of 2017, history of fibromyalgia, hypertension, degenerative joint disease, recurrent pleural effusion. PAST SURGICAL HISTORY: Melanoma removed from the under the left breast. History of sinus surgery, left shoulder surgery, port placement, paracentesis in March of 2018. MEDICATIONS: At home include Lexapro, probiotic, multivitamin, vitamin D3, potassium, magnesium, tumeric, vitamin B1, lactulose, Lasix, albuterol, Xanax. FAMILY HISTORY: Father was diagnosed with colon cancer. Mother's history is unremarkable. SOCIAL HISTORY: Chronic smoker, history of alcohol use in the past. She used to drink 6 glasses of wine on a daily basis, but she quit in 2016. REVIEW OF SYSTEMS: Could not be obtained as patient is extremely weak and tired and is not able to answer most of the questions. PHYSICAL EXAMINATION: She appears comfortable. No apparent distress. VITAL SIGNS: Stable. Blood pressure is 93/56, pulse rate 101, afebrile. HEENT examination unremarkable. Sclerae anicteric. Oral cavity no lesions. NECK: No JVD. No lymph node enlargement. Chest was clear to auscultation. HEART: Regular rate and rhythm. Abdomen is soft. There was mild diffuse tenderness all over the abdomen. Extremities: No pedal edema. SKIN: No rashes. NEURO: She is awake, oriented to name and place, not time. LABS: Done yesterday; WBC 5, hemoglobin 14.6, platelets are 119, PTT is 20.2. INR is 2.2, T bilirubin is 10.2, AST of 284, ALT is 161, alk phos 309. Ammonia is 46. Labs about a month ago on 01/28 T bilirubin was 12.7, AST was 666, ALT was 222, alkaline phosphatase was 45. IMPRESSION: 1. Metastatic melanoma diagnosed in May of 2017. She was started on chemotherapy in December of 2017. She was hospitalized in January of 2018 with elevated LFTs and jaundice as well as pleural effusion for which she underwent paracentesis, but the cytology was negative. The chemotherapy medication was on hold at that time and patient cannot give me any history as to if she had any improvement in LFTs. However, during this hospitalization, she still has persistent jaundice with a bilirubin of 10.2 and elevated serum transaminases in the range of 100s and 200s. The hepatitis serologies for A, B, and C were negative during her past admission. CMV IgM antibody was positive and so was a EBV IgM antibody during her last hospitalization. It was thought that acute on chronic decompensation of the liver disease and jaundice was related to medication related to the chemotherapy. 2. History of cirrhosis of the liver, possibly related to alcohol, which she quit in 2016. Currently has decompensated liver disease with coagulopathy. 3. New onset ascites. It is unclear whether this is related to underlying liver disease or metastasis. She is status post large volume paracentesis on 3 L of fluid was aspirated which was sent for cytology. Albumin and protein in the fluid was also requested. Thank you for this consultation. We will follow the patient closely during the hospital stay. ASHKAN / CICIN: [id number] /
[2018-03-10] MEDS: FOLIC ACID 1 MG TAB PO SCH (12:43)
[2018-03-10] MEDS: THIAMINE 100 MG TAB PO SCH ×2 (12:43→17:02)
--- NOTE | 2018-03-10 13:10 | US ---
EXAMINATION TYPE: US paracentesis abd w/image DATE OF EXAM: 03/10/2018 CLINICAL HISTORY: 62 year-old female abdominal ascites TECHNIQUE: The procedure was discussed with the patient and . The risks, complications, benefits, and alt ernatives were discussed and any questions were answered. Informed consent was obtained from the gladis ent's . 2 units of FFP was administered immediately prior to the procedure. The patient was placed supine on the ultrasound table and prepped and draped in the usual sterile fas hion. All elements of maximal barrier technique were utilized. Ultrasound was used to select the precise s kin entry site along the right lower quadrant. Subsequently, a 6 [place] safety centesis catheter was introduced into the right lower quadrant ascite s collection utilizing trocar technique. Approximately 4.4 liters of straw-colored fluid was removed. The patient remains slightly hypotensive and monitoring was performed by nursing personnel. The patient was stable after completion of the pr ocedure. The catheter was removed, hemostasis obtained, and Tegaderm dressing placed. Specimen was labeled and sent for laboratory analysis. IMPRESSION: Successful diagnostic and therapeutic paracentesis under ultrasound guidance. 4.4 L removed. Laborato ry analysis pending.
[2018-03-10 13:14] LABS: Appearance,BF Hazy; Color,BF Yellow; Nucleated Cells, Body Fluid 57 /uL
[2018-03-10 13:16] LABS: Mononuclear WBC,Body Fluid 95 %; Polynuclear WBC,Body Fluid 5 %; Total Cells Counted,Body Fluid 100
[2018-03-10 14:20] LABS: RBC, Body Fluid 515 /uL
[2018-03-10 15:41] LABS: Anisocytosis Moderate; Basophils % (A) 0 %; Eosinophils # (A) 0.1 k/uL (0-0.7); Eosinophils % (A) 1 %; HCT 42.9 % (34.0-46.0); HGB 13.9 gm/dL (11.4-16.0); Lymphocytes # (A) 1.1 k/uL (1.0-4.8); Lymphocytes % (A) 13 %; MCH 32.5 pg (25.0-35.0); MCHC 32.4 g/dL (31.0-37.0); MCV 100.3 fL (80.0-100.0); Macrocytosis Moderate; Mean Platelet Volume 8.3; Monocytes # (A) 0.6 k/uL (0-1.0); Monocytes % (A) 8 %; Neutrophils # (A) 6.2 k/uL (1.3-7.7); Neutrophils % (A) 76 %; Platelet Count 103 k/uL (150-450); RBC 4.28 m/uL (3.80-5.40); RDW 20.5 % (11.5-15.5); WBC 8.2 k/uL (3.8-10.6)
[2018-03-10 15:49] LABS: Partial Thromboplastin Time 42.5 sec (22.0-30.0); Prothrombin Time 18.3 sec (9.0-12.0)
[2018-03-10 15:50] LABS: Albumin 2.3 g/dL (3.5-5.0); Total Bilirubin 12.1 mg/dL (0.2-1.3); Total Protein 6.2 g/dL (6.3-8.2)
--- NOTE | 2018-03-10 16:40 | P.PN ---
Progress Note - Text Progress Note Date: 03/10/18 Presenting complaint-short of breath History of present complaint: 62-year-old female with history of metastatic melanoma. In March 2017 chief onto her left submammary chest wall nodule that was biopsied and found to have Luis Alberto's level V malignant melanoma. Certainly she had wide excision in April 2017 was 4 mm depth all margins were negative. Then she went to use to [place] which it for the skin excision on May 2017 and March showed metastatic disease. Then in September 2017 she had "dissection and he was to [place] and now for the metastatic melanoma in 2089. Tested. Also in June [address] of the chest abdomen and pelvis and negative MRI of the brain. She had received Opdiva. I would a month ago she was in the hospital to bilateral pleural effusion. Had 1650 of right-sided thoracentesis done. Fluid was negative for malignancy. Was discharged on January 28. She now presents with worsening shortness of breath going on for last several days. Was scheduled for a paracentesis secondary to cirrhosis of the outpatient setting. Appetite is gone down weak and tired but confused. Worsening ascites. On the last admission patient also was felt to have alcoholic cirrhosis. Patient did have ultrasound and MRi of the liver on last admission. Today-This morning patient received 2 units of FFP. 4400 mL of ascites fluid was tapped. By interventional radiology. Blood pressure continues on the lower side. Patient did have a NG tube placed last night l then pulled out. Patient did get 1 dose of lactulose. Patient still remains to be a bit lethargic. The can answer occasional questions. Remains to have significant edema. Patient is barely eating. Rather tired and rundown. She took her medications Review of systems was attempted but patient rather lethargic to give much of a history. Current medications are reviewed: DuoNeb, lactulose, vitamin K, VITAL SIGNS: 97.4, 101, 18, 101/57, 92% on 5 L GENERAL: laying in bed lethargic. EYES: Pupils equal. Conjunctiva palel. NECK: JVD unable to assess; masses not palpable. HEART: First and second heart sounds are normal; gross edema. LUNGS: Respiratory rate increased, diminished breath sounds. ABDOMEN: Soft, less distended, minimally tender, liver spleen not palpable, no masses palpable. Dressing over that Site PSYCH: Lethargic but arousable. Able to answer some questions.l. NEUROLOGICAL: Cranial nerves grossly intact; no facial asymmetry, power and sensation grossly intact. Investigations: In the context of clinical assessment and plan White count 8.2, hemoglobin 13.9, pro time 18.3, potassium 5 BUN 32, creatinine 2.88 bilirubin 12.1 Chest x-ray-fell and abraded by me shows bilateral pleural effusions right greater than left EKG-tracing interpreted by me shows possibly accelerated junctional rhythm Abdominal ultrasound-ascites Assessment: -Malignant melanoma metastatic, treated patient received immunosuppressive therapy with opdiva -Hepatic cirrhosis likely secondary to alcoholic liver disease resulting in portal hypertension and increasing ascites. -Acute hypoxic respiratory failure from pleural effusion -Acute metabolic encephalopathy likely hepatic, patient to be treated with lactulose Chronic fibromyalgia -cervical and Lumbar DJD -Depression not otherwise specified - uses a 4 prong cane at home -Hyper bilirubinemia from likely intrahepatic cholestasis -Prolonged pro time likely from vitamin K deficiency and liver disease -Obesity BMI 30.7 -Acute renal failure, combination of possibly hepatorenal syndrome and from hypoperfusion worsening. Renal function was normal last admission. - Plan: Patient condition do poorly. Renal function is worsening. Mental status is not improving. Blood pressures running in the low side. Patient code status is full. move patient to the ICU. Prognosis is guarded.
[2018-03-10 17:05] LABS: Glucose,Whole Blood 108 mg/dL (75-99)
--- NOTE | 2018-03-10 17:42 | P.CONS ---
History of Present Illness - Reason for Consult Consult date: 03/10/18 Metastatic Melanoma Requesting physician: Sean Burgess - Chief Complaint Shortness of Breath - History of Present Illness Gia is well known to us for treatment of her metastatic Melanoma, recently starting on immunotherapy. Gia had originally presented with a L submammary chest wall nodule biopsy on Mar 29 2017 revealing ulcerated 8.8mm thick , Luis Alberto level V malignant Melanoma. She stated lesion present X 3-6 months and rapilly enlarging. She had wide excision on 04/11/17 revealing residual ulcerated melanoma with 4 mm depth , all margins were negative. She was refered to [facility], had further skin exicision (Negative) on 05/18/17, 2 SLNB were both involved with metastatic disease, largest 3 mm in size. She had axillary LN dissection by Dr Peres at [facility] on revealing no further metastatic melanoma in all 29 lymph nodes. The patient had negative CT Scan of CAP and MRI of head in Jun 2017 (Before dissection), feels Ok overall, denied anorexia or weight loss. BRAF was negative. She smoked 1 PPD X 20 years, quit 30 years ago, consumes 1-2 drinks/day. Fully active, on disability due to back pain. She received 3 cycles of Opdivo from 12/12/17 to 01/11/18. She was recently admitted with Increased LFTs and at that time admited to returning to drinking 2-3 shots of alcohol per day last month. She states she quit 2 weeks ago. Today 03/10/18 she states she quit two years ago, she is a poor historian. Prior to intiiation of opdivo for adjuvant treatment of her melanoma her Total bilirubin on 11/30/17 was 0.3, AST = 72, ALT 79. A full work-up concluded her last admission was related to her underlying liver disease rather than immunotherapy. Also at this time she had bilateral pleural effusion, underwent thoracentesis [id number] of right-pleural fluid remove which was negative for malignancy. She now presents with worsening shortness of breath. She was scheduled on for a paracentesis as outpatient secondary to cirrhosis. She has dried blood and mucous membranes, worsening ascites and intermittent confusion. She appears chronically ill. Review of Systems ROS unobtainable: due to mental status Past Medical History Past Medical History: Cancer, Fibromyalgia, Hypertension, Osteoarthritis (OA), Skin Disorder Additional Past Medical History / Comment(s): Melanoma with surgery and current chemotherapy, mild edema bilateral lower legs/ankle, "irregular heart beat" but pt states never told what rhythm, lower GI bleed, benign colon polyps, constipation, cervical bulging discs with surgery, cervical and back pain/DDD, migraines in the past, falls, "my equalibrium is off." january 2018-pleural effusion/throacentesis. History of Any Multi-Drug Resistant Organisms: None Reported Past Surgical History: Orthopedic Surgery, Tubal Ligation Additional Past Surgical History / Comment(s): Melanoma removed from under left breast, pre skin cancer removed from back, sinus surgery, cervical surgery with donor bones, colonoscopy with 2 benign polypectomies, key carpal tunnel, left rotator cuff, infusaport to right chest, 01-25-18 rt sided thoracentesis Past Anesthesia/Blood Transfusion Reactions: Motion Sickness Past Psychological History: Depression Additional Psychological History / Comment(s): Pt resides with her spouse who also has health problems. Pt recently started using a 4 prong cane. She has not been driving, her spouse drives. She has had home health care in the past but none lately. She manages her own medication. Smoking Status: Former smoker Past Alcohol Use History: Daily Additional Past Alcohol Use History / Comment(s): Pt states she started smoking in 1974 and was less than a ppd smoker and would quit off and on for up to a year before quitting for good in 2007. Pt states she used to drink 6 glasses of wine a day but quit 2015 Past Drug Use History: Marijuana Additional Drug Use History / Comment(s): Pt smoked marijuana in the past but not for many years. - Past Family History Father Family Medical History: Cancer Additional Family Medical History / Comment(s): Father of colon cancer at the age of 88 or 89yrs. Mother Family Medical History: Unable to Obtain Additional Family Medical History / Comment(s): Pt cannot recall mother's health hx at this time. Medications and Allergies Home Medications Medication Instructions Recorded Confirmed Type ALPRAZolam [Xanax] 2 mg PO TID PRN 11/15/17 03/08/18 History Digoxin 250 mcg PO DAILY 11/15/17 03/08/18 History Escitalopram [Lexapro] 20 mg PO DAILY 11/15/17 03/08/18 History HYDROcodone/APAP 5-325MG [[place] 1 tab PO Q6HR PRN 11/15/17 03/08/18 History 5-325] L.acidoph,Paracasei, B.lactis 1 cap PO DAILY 11/15/17 03/08/18 History [Probiotic] Multivitamins, Thera [Multivitamin 1 tab PO DAILY 11/15/17 03/08/18 History (formulary)] Temazepam [Restoril] 15 mg PO HS 11/15/17 03/08/18 History Calcium Carbonate/Vitamin D3 1 tab PO DAILY 01/25/18 03/08/18 History [Calcium 600-Vit D3 200 Tablet] Hydrocortisone Cream 1 applic TOPICAL BID 01/25/18 03/08/18 History [Hydrocortisone 2.5% Cream] Magnesium 200 mg PO DAILY 01/25/18 03/08/18 History Potassium 99 mg PO DAILY 01/25/18 03/08/18 History Turmeric Root Extract [Turmeric] 500 mg PO DAILY 01/25/18 03/08/18 History Ubidecarenone [Co Q-10] 100 mg PO DAILY 01/25/18 03/08/18 History Folic Acid 1 mg PO DAILY #30 tablet 01/28/18 03/08/18 Rx Furosemide [Lasix] 40 mg PO DAILY #30 tab 01/28/18 03/08/18 Rx Ipratropium-Albuterol Nebulize 3 ml INHALATION RT-QID #90 01/28/18 03/08/18 Rx [Duoneb 0.5 mg-3 mg/3 ml Soln] ampul.neb Lactulose [Cephulac] 20 gm PO DAILY 30 Days #900 ml 01/28/18 03/08/18 Rx Thiamine [Vitamin B-1] 100 mg PO BID@1200,1700 #30 tab 01/28/18 03/08/18 Rx Allergies Allergy/AdvReac Type Severity Reaction Status Date / Time adhesive tape Allergy skin tear Verified 03/08/18 14:11 codeine Allergy Nausea Verified 03/08/18 14:11 morphine Allergy Nausea Verified 03/08/18 14:11 Physical Exam Vitals: Vital Signs Temp Pulse Pulse Resp BP BP Pulse Ox 03/10/18 09:22 100 18 97/59 90 L 03/10/18 09:00 101 H 18 94/59 91 L 03/10/18 08:46 101 H 18 93/56 90 L 03/10/18 08:03 100 18 100/59 91 L 03/10/18 07:47 99 92 L 03/10/18 07:33 101 H 18 101/57 92 L 03/10/18 07:23 97.4 F L 101 H 18 83/50 91 L 03/10/18 05:00 97.4 F L 101 H 18 83/50 91 L 03/10/18 00:00 97 22 03/09/18 20:03 97.6 F 97 22 101/64 90 L 03/09/18 16:00 95 26 H 03/09/18 12:15 98.0 F 95 26 H 102/63 91 L Intake and Output 03/09/18 03/10/18 03/10/18 22:59 06:59 14:59 Intake Total 300 308 Output Total 60 Balance 240 308 Intake: Oral 300 Blood Product 308 Ffp 24 Cpd Unit 308 [id number] Output: Urine 60 Other: Voiding Method Bedpan Bedpan # Voids 0 Weight 108.862 kg - Constitutional General appearance: cooperative, no acute distress - EENT Eyes: poor dentition, scleral icterus ENT: hard of hearing, NA/AT, pharyngeal erythema - Neck Neck: normal ROM - Respiratory Respiratory: bilateral: diminished, wheezing - Cardiovascular Rhythm: regular Heart sounds: normal: S1, S2 - Gastrointestinal General gastrointestinal: distended, organomegaly, tenderness - Integumentary Integumentary: jaundiced, pale - Neurologic Neurologic: focal deficits - Musculoskeletal Musculoskeletal: strength equal bilaterally - Psychiatric lethargy, confused poor historian Results CBC & Chem 7: 03/10/18 15:26 03/10/18 15:26 Labs: Abnormal Lab Results - Last 24 Hours (Table) 03/09/18 03/09/18 Range/Units 10:28 16:46 VBG pH 7.47 H (7.31-7.41) POC Glucose (mg/dL) 72 L (75-99) mg/dL Microbiology - Last 24 Hours (Table) 03/08/18 14:27 Blood Culture - Preliminary Blood No Growth after 24 hours Assessment and Plan Plan: Assessment and Recommendations 1. Metastatic Melanoma: Stable on Opdivo - Opdivo on hold for recent hospitalizations and underlying liver disease not associated with Melanoma or immunotherapy 2. Acute Metabolic Encephalopathy likely secondaryt to underlying liver cirrhosis - alcohol related 3. Acute Hypoxic Respiratory Failure 4. Recurrent PLeural Effusions: - Pathology negativie for malignancy 5. Coagulopathy secondary to underlying liver decompensation - Agree with VItamin K 6. Hyperbilirubinemia - >Intrahepatic Cholestasis? 7. Acute Renal Failure - Multifactoral Patients overall condition and prognosis appears gaurded. Will defer management of acute liver and pulmonary to primary team. Will monitor and follow along related to known melanoma and coagulopathy. Monitor CBC, CMP, and COags daily. Provide Vitamin K and FFP as needed. Check Fibrinogen if less than 100 give cryoprecipitate - Will review peripheral smear as well Case discussed in detail with Dr. Reich
[2018-03-10 17:54] LABS: Total Protein, Body Fluid 156 mg/dL
[2018-03-10] MEDS: ALBUMIN HUMAN 25% 50 ML in EMPTY BAG 1 BAG IVPB SCH ×2 (18:30→18:55)
[2018-03-10] MEDS: SODIUM CHLORIDE 0.9% 1,000 ML IV SCH (18:32)
[2018-03-10] MEDS: SODIUM CHLORIDE 0.9% 99 ML with VASOPRESSIN 20 UNIT IV SCH ×2 (20:28)
[2018-03-10] MEDS: cefTRIAXone IN SWFI 2,000 MG/20 ML SYRINGE IVP SCH (22:37)
[2018-03-10] MEDS: NOREPINEPHRINE 16 MG in SODIUM CHLORIDE 0.9% 250 ML IV SCH (22:38)
[2018-03-11] MEDS: ONDANSETRON 4 MG/2 ML VIAL IVP PRN ×4 (02:30→22:32)
[2018-03-11] MEDS ORDERED: DILTIAZEM DRIP BOLUS FROM BAG 1 MG SOLN IV ONE (03:09)
[2018-03-11] MEDS: DILTIAZEM 50 MG in SODIUM CHLORIDE 0.9% 40 ML IV SCH ×4 (03:30→22:30)
[2018-03-11 04:26] LABS: Anisocytosis Moderate; Basophils % (A) 0 %; Eosinophils # (A) 0.1 k/uL (0-0.7); Eosinophils % (A) 1 %; HCT 45.3 % (34.0-46.0); HGB 14.4 gm/dL (11.4-16.0); Hypochromasia Slight; Lymphocytes # (A) 0.9 k/uL (1.0-4.8); Lymphocytes % (A) 12 %; MCH 32.4 pg (25.0-35.0); MCHC 31.6 g/dL (31.0-37.0); MCV 102.3 fL (80.0-100.0); Macrocytosis Moderate; Mean Platelet Volume 8.1; Monocytes # (A) 0.4 k/uL (0-1.0); Monocytes % (A) 5 %; Neutrophils # (A) 5.9 k/uL (1.3-7.7); Neutrophils % (A) 79 %; RBC 4.43 m/uL (3.80-5.40); RDW 20.6 % (11.5-15.5); WBC 7.4 k/uL (3.8-10.6)
[2018-03-11 04:36] LABS: INR 2.2 (<1.2); Partial Thromboplastin Time 46.3 sec (22.0-30.0); Prothrombin Time 19.7 sec (9.0-12.0)
[2018-03-11 04:40] LABS: Albumin 2.7 g/dL (3.5-5.0); Calcium 9.2 mg/dL (8.4-10.2); Potassium 5.1 mmol/L (3.5-5.1); Total Protein 6.7 g/dL (6.3-8.2)
[2018-03-11 04:41] LABS: Platelet Count 85 k/uL (150-450); Target Cells Present
[2018-03-11 05:26] LABS: Magnesium 3.1 mg/dL (1.6-2.3); Phosphorus 5.1 mg/dL (2.5-4.5)
--- NOTE | 2018-03-11 07:15 | XR ---
EXAMINATION TYPE: XR chest 1V portable DATE OF EXAM: 03/11/2018 Comparison: 03/09/2020 Clinical History: 62-year-old female pleural effusions Findings: Right anterior chest wall injection port with catheter tip at the mid SVC. ACDF hardware. The right h eart margin is now obscured by adjacent pleural parenchymal disease. Significant worsening in perihil ar and bibasilar opacities. Impression: Significant interval worsening in perihilar and bibasilar opacities. Underlying moderate pleural effu sions with adjacent atelectasis and/or consolidation are suggested. Possible worsening CHF.
[2018-03-11] MEDS: SODIUM CHLORIDE 0.9% 99 ML with VASOPRESSIN 20 UNIT IV SCH ×4 (07:42→17:42)
[2018-03-11] MEDS: cefTRIAXone IN SWFI 2,000 MG/20 ML SYRINGE IVP SCH (08:05)
[2018-03-11] MEDS: IPRATROPIUM-ALBUTEROL 3 ML NEB INHALATION SCH ×4 (08:13→20:17)
[2018-03-11] MEDS ORDERED: FUROSEMIDE 10 MG/ML 10 ML VIAL IV STA (08:49)
--- NOTE | 2018-03-11 08:51 | P.NPCON ---
History of Present Illness - Reason for Consult acute renal failure - History of Present Illness Reason for consultation: Acute kidney injury History of present illness: Patient is a 62-year-old female seen in renal consultation for acute kidney injury. Her basic creatinine is 1 and was elevated at 1.57 this admission. It was 2.88 yesterday and is 2.74 today. Patient's blood pressure was in the systolic 70s and she is currently maintained on Levophed 4 mcg and vasopressin 0.03. Patient was diagnosed with metastatic melanoma in May 2017. Patient has undergone chemotherapy through Dr. Soto. Patient was admitted to the hospital in January 2018 and was noted to have a right-sided pleural effusion for which she underwent thoracentesis but the cytology was negative at the time. She is also has history of alcohol-induced liver cirrhosis and is being followed by gastroenterology. Patient was noted to have significant ascites on admission and underwent paracentesis with 4.4 L removed on March 10. She did receive 25 g of albumin after the procedure. Patient's urine output is about 40-50 mL per hour. She is maintained on Cardizem drip furtive fibrillation with RVR. Chest x-ray is adjustable pleural effusions. Patient's currently receiving a breathing treatment. She is not a very reliable historian at this time. Vital signs are stable. Currently on vasopressors. General: The patient appeared well nourished and normally developed. HEENT: Head exam is unremarkable. Neck is without jugular venous distension. LUNGS: Lungs are clear to auscultation and percussion. Breath sounds decreased. HEART: Rate and Rhythm are regular. First and second heart sounds normal. No murmurs, rubs or gallops. ABDOMEN: Abdominal exam reveals normal bowel sounds. Moderate distention. EXTREMITITES: No clubbing, cyanosis, or edema. Past Medical History Past Medical History: Cancer, Fibromyalgia, Hypertension, Osteoarthritis (OA), Skin Disorder Additional Past Medical History / Comment(s): Melanoma with surgery and current chemotherapy, mild edema bilateral lower legs/ankle, "irregular heart beat" but pt states never told what rhythm, lower GI bleed, benign colon polyps, constipation, cervical bulging discs with surgery, cervical and back pain/DDD, migraines in the past, falls, "my equalibrium is off." january 2018-pleural effusion/throacentesis. History of Any Multi-Drug Resistant Organisms: None Reported Past Surgical History: Orthopedic Surgery, Tubal Ligation Additional Past Surgical History / Comment(s): Melanoma removed from under left breast, pre skin cancer removed from back, sinus surgery, cervical surgery with donor bones, colonoscopy with 2 benign polypectomies, key carpal tunnel, left rotator cuff, infusaport to right chest, 7-18 rt sided thoracentesis Past Anesthesia/Blood Transfusion Reactions: Motion Sickness Past Psychological History: Depression Additional Psychological History / Comment(s): Pt resides with her spouse who also has health problems. Pt recently started using a 4 prong cane. She has not been driving, her spouse drives. She has had home health care in the past but none lately. She manages her own medication. Smoking Status: Former smoker Past Alcohol Use History: Daily Additional Past Alcohol Use History / Comment(s): Pt states she started smoking in 1974 and was less than a ppd smoker and would quit off and on for up to a year before quitting for good in 2007. Pt states she used to drink 6 glasses of wine a day but quit 2015 Past Drug Use History: Marijuana Additional Drug Use History / Comment(s): Pt smoked marijuana in the past but not for many years. - Past Family History Father Family Medical History: Cancer Additional Family Medical History / Comment(s): Father of colon cancer at the age of 88 or 89yrs. Mother Family Medical History: Unable to Obtain Additional Family Medical History / Comment(s): Pt cannot recall mother's health hx at this time. Medications and Allergies Home Medications Medication Instructions Recorded Confirmed Type ALPRAZolam [Xanax] 2 mg PO TID PRN 11/15/17 03/08/18 History Digoxin 250 mcg PO DAILY 11/15/17 03/08/18 History Escitalopram [Lexapro] 20 mg PO DAILY 11/15/17 03/08/18 History HYDROcodone/APAP 5-325MG [[place] 1 tab PO Q6HR PRN 11/15/17 03/08/18 History 5-325] L.acidoph,Paracasei, B.lactis 1 cap PO DAILY 11/15/17 03/08/18 History [Probiotic] Multivitamins, Thera [Multivitamin 1 tab PO DAILY 11/15/17 03/08/18 History (formulary)] Temazepam [Restoril] 15 mg PO HS 11/15/17 03/08/18 History Calcium Carbonate/Vitamin D3 1 tab PO DAILY 01/25/18 03/08/18 History [Calcium 600-Vit D3 200 Tablet] Hydrocortisone Cream 1 applic TOPICAL BID 01/25/18 03/08/18 History [Hydrocortisone 2.5% Cream] Magnesium 200 mg PO DAILY 01/25/18 03/08/18 History Potassium 99 mg PO DAILY 01/25/18 03/08/18 History Turmeric Root Extract [Turmeric] 500 mg PO DAILY 01/25/18 03/08/18 History Ubidecarenone [Co Q-10] 100 mg PO DAILY 01/25/18 03/08/18 History Folic Acid 1 mg PO DAILY #30 tablet 01/28/18 03/08/18 Rx Furosemide [Lasix] 40 mg PO DAILY #30 tab 01/28/18 03/08/18 Rx Ipratropium-Albuterol Nebulize 3 ml INHALATION RT-QID #90 01/28/18 03/08/18 Rx [Duoneb 0.5 mg-3 mg/3 ml Soln] ampul.neb Lactulose [Cephulac] 20 gm PO DAILY 30 Days #900 ml 01/28/18 03/08/18 Rx Thiamine [Vitamin B-1] 100 mg PO BID@1200,1700 #30 tab 01/28/18 03/08/18 Rx Allergies Allergy/AdvReac Type Severity Reaction Status Date / Time adhesive tape Allergy skin tear Verified 03/08/18 14:11 codeine Allergy Nausea Verified 03/08/18 14:11 morphine Allergy Nausea Verified 03/08/18 14:11 Physical Exam Vitals: Vital Signs Temp Pulse Pulse Resp BP BP Pulse Ox 03/11/18 08:24 92 03/11/18 08:14 90 03/11/18 08:00 98.0 F 92 18 123/48 88 L 03/11/18 07:30 91 19 97/45 90 L 03/11/18 07:00 92 21 103/48 91 L 03/11/18 06:30 93 22 104/47 91 L 03/11/18 06:00 91 24 102/44 91 L 03/11/18 05:30 91 22 119/54 91 L 03/11/18 05:00 93 22 107/47 90 L 03/11/18 04:30 94 23 101/42 91 L 03/11/18 04:00 98.6 F 92 23 102/47 90 L 03/11/18 03:30 115 H 25 H 102/55 92 L 03/11/18 03:00 120 H 20 102/45 92 L 03/11/18 02:30 94 21 107/53 92 L 03/11/18 02:00 88 23 110/78 91 L 03/11/18 01:30 102 H 23 104/43 90 L 03/11/18 01:00 95 22 84/59 92 L 03/11/18 00:30 97 27 H 100/52 90 L 03/11/18 00:00 97.6 F 94 23 96/57 89 L 03/10/18 23:30 89 21 97/47 92 L 03/10/18 23:00 89 20 100/52 92 L 03/10/18 22:30 114 H 24 75/46 91 L 03/10/18 22:04 98 21 98/43 90 L 03/10/18 22:00 109 H 22 98/43 90 L 03/10/18 21:45 116 H 20 104/48 91 L 03/10/18 21:30 90 22 86/46 92 L 03/10/18 21:00 112 H 20 80/46 90 L 03/10/18 20:30 116 H 18 74/43 94 L 03/10/18 20:11 92 16 03/10/18 20:04 114 H 18 03/10/18 20:00 97.4 F L 103 H 18 87/38 95 03/10/18 19:30 92 16 85/38 94 L 03/10/18 19:00 90 89/43 91 L 03/10/18 18:30 119 H 75/45 91 L 03/10/18 18:00 115 H 75/38 91 L 03/10/18 17:30 98.0 F 121 H 22 84/45 84/45 92 L 03/10/18 15:50 98 03/10/18 15:31 100 03/10/18 13:00 97.9 F 101 H 18 83/50 95 03/10/18 11:40 100 03/10/18 11:34 96 03/10/18 09:22 100 18 97/59 90 L 03/10/18 09:00 101 H 18 94/59 91 L 03/10/18 08:46 101 H 18 93/56 90 L Intake and Output 03/10/18 03/11/18 03/11/18 22:59 06:59 14:59 Intake Total 288 355.713 91.935 Output Total 135 305 250 Balance 153 50.713 -158.065 Intake: IV 48 143 38 Sodium Chloride 0.9% 1, 30 80 20 000 ml @ 10 mls/hr IV . Q24H ELIJAH Rx#:[id number] Sodium Chloride 0.9% 99 18 63 18 ml @ 0.03 UNITS/MIN 9 mls /hr IV .Q11H7M ELIJAH with Vasopressin 20 unit Rx#: [id number] Intake, IV Titration 120 32.713 23.935 Amount Albumin Human 25% 50 ml 100 In Empty Bag 1 bag @ 100 mls/hr IVPB Q1H ELIJAH Rx#: [id number] Diltiazem 50 mg In Sodium 5 Chloride 0.9% 40 ml @ 10 MG/HR 10 mls/hr IV .Q5H ELIJAH Rx#:[id number] Norepinephrine 16 mg In 32.713 18.935 Sodium Chloride 0.9% 250 ml @ Titrate IV .Q0M ELIJHA Rx#:[id number] Sodium Chloride 0.9% 1, 20 000 ml @ 10 mls/hr IV . Q24H ELIJAH Rx#:[id number] Oral 120 180 30 Output: Urine 135 305 50 Emesis 200 Other: Voiding Method Indwelling Catheter Indwelling Catheter Indwelling Catheter # Bowel Movements 2 1 Weight 91.6 kg Results - Lab Results Most recent lab results Calcium 9.2 mg/dL (8.4-10.2) 03/11/18 03:53 Phosphorus 5.1 mg/dL (2.5-4.5) H 03/11/18 03:53 Magnesium 3.1 mg/dL (1.6-2.3) H 03/11/18 03:53 03/11/18 03:53 03/11/18 03:53 Assessment and Plan Plan: Assessment: 1. Acute kidney injury secondary to ATN secondary to hypotension. Baseline creatinine is 1. Peaked at 2.8 at this admission and is 2.74 today. 2. Ascites status post paracentesis on March 10 at 4.4 L removed. Patient did receive 25 g of albumin after the procedure. 3. Alcohol-induced liver cirrhosis. GI following. 4. Metastatic melanoma. 5. Atrial fibrillation with RVR maintained on IV Cardizem. 6. Hypotension maintained on Levophed as well as vasopressin. 7. Hypervolemic hyponatremia. Plan: Add midodrine 10 mg 3 times daily. Wean vasopressors. Lasix 60 mg IV once today. Continue to monitor renal function and urine output. Avoid nephrotoxic agents and hypotensive episodes. Check renal ultrasound. May require thoracentesis for the pleural effusions. Thank you for the consultation. I will continue to follow the patient with you during her hospital stay.
[2018-03-11] MEDS: PHYTONADIONE ORAL 5 MG/5 ML ORAL.SYRG PO SCH (09:07)
[2018-03-11] MEDS: LACTULOSE 20 GM/30 ML CUP PO SCH ×2 (09:08→22:30)
--- NOTE | 2018-03-11 10:25 | PN ---
PROGRESS NOTE DATE OF SERVICE: March 11, 2018. REQUESTING PHYSICIAN: Dr. Burgess. The patient is a 62-year-old pleasant white female with metastatic melanoma diagnosed in May of 2017 was undergoing chemotherapy. She is admitted to the hospital with shortness of breath, not feeling well and abdominal distention for the last few days duration. She had ultrasound of the abdomen done that showed evidence of ascites for which she underwent large volume paracentesis and approximately 4.4 L of fluid was aspirated yesterday by Interventional Radiology. Following the procedure, she became hypotensive and lethargic and she was transferred to intensive care unit. She presently is on Levophed. She also received albumin 25 g yesterday, still remains hypertensive. This morning she is somewhat lethargic, slightly confused. Complains of diffuse abdominal pain. She reports no nausea, vomiting. No fever, chills, night sweats. Also was noted to have atrial fibrillation and she was started on IV Cardizem drip in the ICU yesterday. PHYSICAL EXAMINATION: She is very lethargic, answers to simple commands. VITAL SIGNS: Blood pressure 101/53, pulse 96, temperature 99. HEENT examination unremarkable. Conjunctivae pink. Sclerae deeply icteric. Oral cavity no lesions. Neck no jugular venous distention or lymph node enlargement. Chest was clear to auscultation. HEART: Regular rate and rhythm. Abdomen was slightly distended. It was diffusely tender. Mild diffuse tenderness. Extremities 2+ pedal edema. Skin: No rashes. Neuro: She is awake, oriented to name and place but not to time. LABS: Done today WBC 7.4, hemoglobin 14.5, platelets 85,000. PT 19.7, INR 2.2. BUN is 78, creatinine 2.74, T bilirubin is 13, AST 178, ALT 126, alkaline phosphatase 229. Peritoneal fluid analysis from yesterday showed RBC 515, WBC 5. Total protein was 156 mg/dL. LDH is 48. Fluid albumin is still pending. Fluid cytology and Gram stain and cultures are still pending. IMPRESSION: This is a lady with metastatic melanoma diagnosed in May of 2017, presents to the hospital with new onset ascites. She did have a pleural effusion a month ago for which she underwent thoracentesis and cytology was negative. She underwent large volume paracentesis yesterday and 4.4 L was removed and analysis does not show any evidence of SBP though cultures are still pending. The patient was empirically started on ceftriaxone by Dr. Ibarra for possible SBP because of persistent hypertension and altered mental status yesterday. She remains on Levophed currently. She also has history of underlying alcoholic cirrhosis of the liver which appears to have significant decompensation over the last several days, probably related to superimposed medication induced hepatitis. Also developed acute kidney injury and nephrology following the patient closely. RECOMMENDATIONS: 1. Agree with broad-spectrum antibiotics for possible SBP. 2. Await cultures from the ascitic fluid. 3. Continue with symptomatic and supportive care. 4. I will continue to follow the patient closely during her hospital stay. Thank you for this consultation. MMODL / IJN: [id number] /
--- NOTE | 2018-03-11 11:23 | US ---
EXAMINATION TYPE: US chest DATE OF EXAM: 03/11/2018 COMPARISON: NONE CLINICAL HISTORY: 62-year-old female Markings for thoracentesis by pulmonary staff. ICU pt with SOB TECHNIQUE: Targeted ultrasound of the bilateral posterior lower hemithoraces FINDINGS: EXAM MEASUREMENTS: Right Pleural Effusion pocket size: 9.9 cm Right skin surface to fluid distance: 3.0 cm Left Pleural Effusion pocket size: 8.3 cm Left skin surface to fluid distance: 3.2 cm Right side marked for possible thoracentesis outside the dept. Left side marked for possible thoracentesis outside the dept. Pulmonologists are able to review the images in the patient?s EMR. IMPRESSIONS: Moderate bilateral pleural effusions.
--- NOTE | 2018-03-11 11:34 | US ---
EXAMINATION TYPE: US kidneys/renal and bladder DATE OF EXAM: 03/11/2018 COMPARISON: Paracentesis 03/10/2018 CLINICAL HISTORY: 62-year-old female with acute kidney injury. [employer] NOTES: ICU patient sitting fully erect due to nausea during exam, limited mobility TECHNIQUE: Multiple sonographic images of the kidneys and bladder are obtained. FINDINGS: EXAM MEASUREMENTS: Right Kidney: 10.4 x 4.8 x 5.0 cm Left Kidney: unable to visualize Right Kidney: no hydronephrosis. Left Kidney: unable to visualize due to ascites and bowel gas. There Bladder: patient had gonzalez but did not assess due to sitting upright and feeling nauseous There is reaccumulation of a moderate amount of abdominal ascites. IMPRESSION: 1. Limited exam due to upright positioning of the patient at the bedside. 2. No hydronephrosis on the right. The left kidney was obscured and could not be assessed. 3. Reaccumulation of moderate abdominal ascites.
[2018-03-11] MEDS: FOLIC ACID 1 MG TAB PO SCH (12:34)
[2018-03-11] MEDS: THIAMINE 100 MG TAB PO SCH ×2 (12:34→17:45)
--- NOTE | 2018-03-11 12:50 | P.PN ---
Subjective Progress Note Date: 03/11/18 Principal diagnosis: Acute hypoxic respiratory failure and bilateral pleural effusions with ascites and elevated liver enzymes with coagulopathy. This is a very pleasant 62-year-old female patient who follows with Dr. trevor Negrete as her primary care physician. She has a history of fibromyalgia, osteoarthritis, migraines, depression. She was has a history of left submammary chest wall malignant melanoma and she had a wide excision on 2016. She had been seen at the [facility] for further skin excision in May 2017 and lymph nodes were positive for metastatic disease. She had been receiving Opdivo. We had seen the patient approximate one month ago here at the hospital for an acute hypoxic respiratory failure secondary to large bilateral pleural effusions. She is status post right-sided thoracentesis with 1650 MLS of dark turbulent fluid removed. Fluid was negative for malignancy. She was discharged on 01/28/2018. She presented here to the emergency room yesterday with complaints of increasing shortness of breath that had been worsening over the past several days. She had been scheduled for a paracentesis secondary to cirrhosis in the outpatient setting. Abdominal ultrasound revealed moderate fluid on the right of an incomplete study secondary to vomiting. Chest x-ray shows bilateral infiltrates with pleural effusions and mild venous congestion. Computed tomography scan of the brain revealed mild cerebral atrophy but otherwise negative. She is seen today in consultation on the oncology unit. She is currently quite weak and fatigued. She is dyspneic with minimal exertion. She has saturating in the low 90s on 4 L/m per nasal cannula. She's been afebrile. Slightly tachycardic. Slightly tachypneic. White count 5.0. Hemoglobin 14.6. INR 2.2. Creatinine 1.57. AST 284, ALT 161. Urine has many bacteria. Patient was reevaluated today on 03/11/2018, she was transferred yesterday to the ICU, she was noted to have poor urine output, blood pressure was getting very low, and this followed her large volume paracentesis. Upon transfer to the ICU , patient was given albumin infusions, started on vasopressin also on levo fed, blood pressure remains marginal. She is presently on 3 g of levo fed, and she is also on 0.03 units of vasopressin. Urine output remains marginal, patient was given Lasix by nephrology, and not much of a great response. Her chest x- ray is showing worsening bilateral pleural effusions and I plan to perform thoracentesis on this patient, she received vitamin K for elevated INR, and I will likely perform the thoracentesis either today later today or tomorrow. I called in family to be at bedside, was updated on her condition, and I have discussed her overall poor prognostic picture. At this point the and the family are discussing the patient the issue of CODE STATUS, the seems to be inclined to agree with DO NOT RESUSCITATE CODE STATUS, but that is yet to be confirmed with the patient and other family members. Patient seems to be frail, looks chronically ill, on high flow nasal cannula, O2 saturations are marginal. I believe the thoracentesis may help at least improve her pulmonary status. WBC count is 7.4 hemoglobin is 14.4. Basic metabolic profile is relatively normal except for anion gap metabolic acidosis, BUN is 78 creatinine is 2.74 patient is known to have history of alcohol-induced liver cirrhosis, and that is being addressed by gastroenterology. So far she had 4.4 L removed from her abdomen patient remains on Cardizem at 5 mg per hour for A. fib/RVR. Objective - Vital Signs Vital signs: Vital Signs Temp 98.5 F 03/11/18 12:00 Pulse 90 03/11/18 12:30 Resp 22 03/11/18 12:30 BP 84/41 03/11/18 12:30 Pulse Ox 89 L 03/11/18 12:30 Intake & Output 03/10/18 03/11/18 03/11/18 18:59 06:59 18:59 Intake Total 428 523.713 235.519 Output Total 4450 390 420 Balance -4022 133.713 -184.481 Weight 91.6 kg Intake: IV 191 114 Sodium Chloride 0.9% 1, 110 60 000 ml @ 10 mls/hr IV . Q24H [facility] Rx#:[id number] Sodium Chloride 0.9% 99 81 54 ml @ 0.03 UNITS/MIN 9 mls /hr IV .Q11H7M [facility] with Vasopressin 20 unit Rx#: [id number] Intake, IV Titration 120 32.713 91.519 Amount Albumin Human 25% 50 ml 100 In Empty Bag 1 bag @ 100 mls/hr IVPB Q1H [facility] Rx#: [id number] Diltiazem 50 mg In Sodium 60 Chloride 0.9% 40 ml @ 5 MG/HR 5 mls/hr IV .Q10H [facility] Rx#:[id number] Norepinephrine 16 mg In 32.713 31.519 Sodium Chloride 0.9% 250 ml @ Titrate IV .Q0M [facility] Rx#:[id number] Sodium Chloride 0.9% 1, 20 000 ml @ 10 mls/hr IV . Q24H [facility] Rx#:[id number] Oral 300 30 Blood Product 308 Ffp 24 Cpd Unit 308 [id number] Output: Urine 50 390 220 Emesis 200 Other 4400 Other: Voiding Method Indwelling Catheter Indwelling Catheter Indwelling Catheter # Voids 2 # Bowel Movements 1 1 - Exam - Constitutional General appearance: average body habitus - EENT Eyes: EOMI, PERRLA ENT: hearing grossly normal Ears: bilateral: normal - Neck Neck: normal ROM Carotids: bilateral: upstroke normal Thyroid: bilateral: normal size - Respiratory Respiratory: Diminished breath sound bilaterally with dullness, no rhonchi and no wheezes. - Cardiovascular Rhythm: irregular, irregular rhythm. Heart sounds: normal: S1, S2 - Gastrointestinal General gastrointestinal: distended, positive ascites, diminished bowel sounds. - Integumentary Integumentary: normal turgor - Neurologic Neurologic: CNII-XII intact - Musculoskeletal Musculoskeletal: generalized weakness - Psychiatric Psychiatric: A&O x's 3 - Labs CBC & Chem 7: 03/11/18 03:53 03/11/18 03:53 Labs: Abnormal Lab Results - Last 24 Hours (Table) 03/10/18 03/10/18 03/10/18 Range/Units 15:26 15:26 15:26 MCV 100.3 H (80.0-100.0) fL RDW 20.5 H (11.5-15.5) % Plt Count 103 L (150-450) k/uL Lymphocytes # (1.0-4.8) k/uL PT 18.3 H (9.0-12.0) sec INR 2.0 H (<1.2) APTT 42.5 H (22.0-30.0) sec Sodium 132 L (137-145) mmol/L Chloride 96 L (98-107) mmol/L BUN 72 H (7-17) mg/dL Creatinine 2.88 H (0.52-1.04) mg/dL Glucose 103 H (74-99) mg/dL POC Glucose (mg/dL) (75-99) mg/dL Phosphorus (2.5-4.5) mg/dL Magnesium (1.6-2.3) mg/dL Total Bilirubin 12.1 H (0.2-1.3) mg/dL AST 209 H (14-36) U/L ALT 137 H (9-52) U/L Alkaline Phosphatase 240 H (38-126) U/L Total Protein 6.2 L (6.3-8.2) g/dL Albumin 2.3 L (3.5-5.0) g/dL 03/10/18 03/11/18 03/11/18 Range/Units 17:04 03:53 03:53 MCV 102.3 H (80.0-100.0) fL RDW 20.6 H (11.5-15.5) % Plt Count 85 L (150-450) k/uL Lymphocytes # 0.9 L (1.0-4.8) k/uL PT 19.7 H (9.0-12.0) sec INR 2.2 H (<1.2) APTT 46.3 H (22.0-30.0) sec Sodium (137-145) mmol/L Chloride (98-107) mmol/L BUN (7-17) mg/dL Creatinine (0.52-1.04) mg/dL Glucose (74-99) mg/dL POC Glucose (mg/dL) 108 H (75-99) mg/dL Phosphorus (2.5-4.5) mg/dL Magnesium (1.6-2.3) mg/dL Total Bilirubin (0.2-1.3) mg/dL AST (14-36) U/L ALT (9-52) U/L Alkaline Phosphatase (38-126) U/L Total Protein (6.3-8.2) g/dL Albumin (3.5-5.0) g/dL 03/11/18 03/11/18 Range/Units 03:53 03:53 MCV (80.0-100.0) fL RDW (11.5-15.5) % Plt Count (150-450) k/uL Lymphocytes # (1.0-4.8) k/uL PT (9.0-12.0) sec INR (<1.2) APTT (22.0-30.0) sec Sodium 133 L (137-145) mmol/L Chloride (98-107) mmol/L BUN 78 H (7-17) mg/dL Creatinine 2.74 H (0.52-1.04) mg/dL Glucose 113 H (74-99) mg/dL POC Glucose (mg/dL) (75-99) mg/dL Phosphorus 5.1 H (2.5-4.5) mg/dL Magnesium 3.1 H (1.6-2.3) mg/dL Total Bilirubin 13.0 H (0.2-1.3) mg/dL AST 178 H (14-36) U/L ALT 126 H (9-52) U/L Alkaline Phosphatase 229 H (38-126) U/L Total Protein (6.3-8.2) g/dL Albumin 2.7 L (3.5-5.0) g/dL Microbiology - Last 24 Hours (Table) 03/10/18 09:50 Gram Stain - Preliminary Peritoneal Fluid Body Fluid Culture - Preliminary 03/10/18 18:57 Urine Culture - Preliminary Urine,Catheterized 03/10/18 09:50 Anaerobic Culture - Preliminary Peritoneal Fluid 03/08/18 14:27 Blood Culture - Preliminary Blood No Growth after 48 hours Assessment and Plan Assessment: #1 Acute hypoxic respiratory failure secondary to bilateral neural effusions/ infiltrates. She did undergo a right-sided thoracentesis in January 2018 that was negative for malignancy. There was noted mediastinal adenopathy and new left upper lobe and lingular centimeter pulmonary nodules on a computed tomography scan in 01/25/2018. #2 Abdominal distention secondary to ascites with elevated LFTs and coagulopathy with an INR 2.2. Having ultrasound-guided paracentesis today. #3 Altered mental status secondary to above. Computed tomography scan negative for any acute abnormalities. #4 Left submammary chest wall melanoma with metastasis. Had undergone surgical resection at the [facility]. Stage III currently receiving adjuvant immunotherapy in the form of Opdivo. #5 Urinary tract infection. #6 Fibromyalgia. #7 History of chronic tobacco dependence. #8 History of migraines. #9 Anxiety/depression. #10 chronic liver cirrhosis with ascites and bilateral pleural effusions. #11 atrial fibrillation with RVR presently on Cardizem drip. #12 hypotension, multifactorial,, doubt sepsis, patient has intravascular depletion, relative hypovolemia, hypoproteinemia, and the hypotension has worsened since she had paracentesis. Not to mention the patient has atrial fibrillation with RVR requiring Cardizem. Strongly doubt SBP, patient is on antibiotics empirically anyway. Recommendation: I had a long discussion with the patient, her , and her sister at bedside, discussed his overall condition, explained to them that her condition seems to be quite terminal, they will discuss it among themselves, and they seem to be inclined at this point to consider comfort care measures. We'll continue to follow closely. May recommend thoracentesis for comfort care. This could be done today or possibly tomorrow. Critical care time is 45 minutes. Time with Patient: Greater than 30
[2018-03-11] MEDS: MIDODRINE 5 MG TAB PO SCH ×2 (14:49→17:42)
--- NOTE | 2018-03-11 15:16 | XR ---
EXAMINATION TYPE: XR chest 1V portable DATE OF EXAM: 03/11/2018 COMPARISON: March 11, 2018 HISTORY: Thoracentesis TECHNIQUE: Single frontal view of the chest is obtained. FINDINGS: There is blunting of both costophrenic angles and more on the right side. There is right c entral venous catheter with tip in the superior vena cava. There is no pneumothorax. Trachea is midli ne. There are chest leads. There is pulmonary vascular congestion. IMPRESSION: There is decrease in left pleural effusion compared to exam this morning. No pneumothora x. Moderate right pleural effusion. There is probably congestive heart failure.
[2018-03-11 15:40] LABS: Appearance,BF Hazy; Color,BF Yellow; Nucleated Cells, Body Fluid 165 /uL; RBC, Body Fluid 2230 /uL
[2018-03-11 16:01] LABS: Mononuclear WBC,Body Fluid 91 %; Polynuclear WBC,Body Fluid 9 %; Total Cells Counted,Body Fluid 100
[2018-03-11] MEDS ORDERED: FUROSEMIDE 10 MG/ML 10 ML VIAL IV ONE ×2 (17:00→18:00)
[2018-03-11] MEDS: SODIUM CHLORIDE 0.9% 1,000 ML IV SCH (17:46)
--- NOTE | 2018-03-11 22:09 | P.PN ---
Progress Note - Text Progress Note Date: 03/11/18 Presenting complaint-short of breath History of present complaint: 62-year-old female with history of metastatic melanoma. In March 2017 chief onto her left submammary chest wall nodule that was biopsied and found to have Luis Alberto's level V malignant melanoma. Certainly she had wide excision in April 2017 was 4 mm depth all margins were negative. Then she went to use to [place] which it for the skin excision on May 2017 and March showed metastatic disease. Then in September 2017 she had "dissection and he was to [place] and now for the metastatic melanoma in 2089. Tested. Also in June [address] of the chest abdomen and pelvis and negative MRI of the brain. She had received Opdiva. I would a month ago she was in the hospital to bilateral pleural effusion. Had 0 of right-sided thoracentesis done. Fluid was negative for malignancy. Was discharged on January 28. She now presents with worsening shortness of breath going on for last several days. Was scheduled for a paracentesis secondary to cirrhosis of the outpatient setting. Appetite is gone down weak and tired but confused. Worsening ascites. On the last admission patient also was felt to have alcoholic cirrhosis. Patient did have ultrasound and MRi of the liver on last admission. Patient was moved to the ICU on 03/10/2018 Today-as patient was worsening yesterday afternoon. Blood pressure running low. Still lethargic I counseled the patient ICU. I spoke to Dr. Gross from critical care. Also GI consultation was done. In the ICU she was given albumin , vasopressin, Levophed. Remains on Cardizem drip for atrial fibrillation. Review of systems was attempted but patient rather lethargic to give much of a history. Current medications are reviewed: IV vasopressin, IV levo fed, IV ceftriaxone, IV Cardizem, vitamin K VITAL SIGNS: 98.5, 90, 26, 98/45, 92% on 10 L GENERAL: Sitting at the edge of the bed, leaning toward her table, tired EYES: Pupils equal. Conjunctiva palel. NECK: JVD unable to assess; masses not palpable. HEART: First and second heart sounds are normal; gross edema. LUNGS: Respiratory rate increased, diminished breath sounds. ABDOMEN: Soft, less distended, minimally tender, liver spleen not palpable, no masses palpable. Dressing over that Site PSYCH: Lethargic but arousable. Able to answer some questions.l. NEUROLOGICAL: Cranial nerves grossly intact; no facial asymmetry, power and sensation grossly intact. Investigations: In the context of clinical assessment and plan White count 7.4, hemoglobin 14.4, pro time 19.7 BUN 78, creatinine 2.74, phosphorus 5.1, AST 178, AST 126 Assessment: -Malignant melanoma metastatic, treated, immunosuppressive therapy with opdiva -Hepatic cirrhosis likely secondary to alcoholic liver disease resulting in portal hypertension and increasing ascites. -Acute hypoxic respiratory failure from pleural effusion -Acute metabolic encephalopathy likely hepatic, patient to be treated with lactulose Chronic fibromyalgia -cervical and Lumbar DJD -Depression not otherwise specified - uses a 4 prong cane at home -Hyper bilirubinemia from likely intrahepatic cholestasis -Prolonged pro time likely from vitamin K deficiency and liver disease -Obesity BMI 30.7 -Acute renal failure, combination of possibly hepatorenal syndrome and from hypoperfusion worsening. Renal function was normal last admission. -Possible spontaneous bacterial peritonitis, started on antibiotics for the same -Hypotensive shock, patient requiring vasopressin and IV levo fed Plan: Patient remains in the ICU. Midodrine 10 mg 3 times a day was added and Lasix 60 mg 1 doses given by nephrology. Dr. Perez did speak to the family about possible DO NOT RESUSCITATE status this afternoon. Prognosis remains poor given her multiple problems. Patient remains on vasopressin and Levophed drip.
--- NOTE | 2018-03-11 23:04 | PCN ---
PROCEDURE NOTE OPERATIVE REPORT: Left-sided thoracentesis. PREOPERATIVE DIAGNOSIS: Left pleural effusion POSTOP DIAGNOSIS: Left pleural effusion. ANESTHESIA USED: 2 mL of 1% lidocaine. DESCRIPTION OF THE PROCEDURE: The patient was placed in a sitting upright position, the area below the left scapula was prepared in a sterile fashion and drapes were applied. The area was earlier localized by ultrasound guidance. It correlated to the 8th intercostal space and tip of the scapula. After adequate local anesthetic given, a 26-gauge needle was inserted at the same site, advanced into the pleural space. Fluid was localized with the needle. Then a small tiny incision was made, and an 8-Turkmen catheter was inserted with the needle into the pleural space and the fluid was obtained. Then the needle was pulled out of the pleural space and the catheter was advanced further down into the pleural space. Free-flowing fluid looked dark yellow in color, obtained from the left pleural space. Roughly 1150 mL were obtained, sent for different diagnostic studies. Procedure was well tolerated, no evidence of any immediate complications, chest x-ray was ordered postoperatively. MMODL / IJN: [id number] /
[2018-03-12] MEDS: SODIUM CHLORIDE 0.9% 99 ML with VASOPRESSIN 20 UNIT IV SCH ×4 (04:10→16:28)
[2018-03-12] MEDS: NOREPINEPHRINE 16 MG in SODIUM CHLORIDE 0.9% 250 ML IV SCH (04:10)
[2018-03-12] MEDS: ONDANSETRON 4 MG/2 ML VIAL IVP PRN ×2 (04:12→10:27)
[2018-03-12 05:33] LABS: Magnesium 3.2 mg/dL (1.6-2.3); Phosphorus 5.5 mg/dL (2.5-4.5)
[2018-03-12 07:58] LABS: Anisocytosis Moderate; Basophils % (A) 0 %; Eosinophils # (A) 0.1 k/uL (0-0.7); Eosinophils % (A) 1 %; HCT 47.5 % (34.0-46.0); HGB 15.8 gm/dL (11.4-16.0); Lymphocytes # (A) 0.7 k/uL (1.0-4.8); Lymphocytes % (A) 9 %; MCH 33.5 pg (25.0-35.0); MCHC 33.2 g/dL (31.0-37.0); MCV 100.9 fL (80.0-100.0); Macrocytosis Moderate; Monocytes # (A) 0.3 k/uL (0-1.0); Monocytes % (A) 4 %; Neutrophils # (A) 6.4 k/uL (1.3-7.7); Neutrophils % (A) 84 %; Platelet Count 87 k/uL (150-450); RBC 4.71 m/uL (3.80-5.40); RDW 20.1 % (11.5-15.5); WBC 7.6 k/uL (3.8-10.6)
[2018-03-12 08:08] LABS: Albumin 2.6 g/dL (3.5-5.0); Potassium 4.7 mmol/L (3.5-5.1); Total Protein 6.7 g/dL (6.3-8.2)
[2018-03-12 08:10] VITALS: TEMP 98
[2018-03-12] MEDS: IPRATROPIUM-ALBUTEROL 3 ML NEB INHALATION SCH ×3 (08:10→15:55)
[2018-03-12 08:17] LABS: INR 2.3 (<1.2); Partial Thromboplastin Time 42.3 sec (22.0-30.0); Prothrombin Time 20.8 sec (9.0-12.0)
[2018-03-12 08:49] LABS: Total Bilirubin 14.9 mg/dL (0.2-1.3)
--- NOTE | 2018-03-12 08:57 | P.PN ---
Subjective Patient seen in follow-up for acute kidney injury. Renal function is a little worse today with creatinine at 2.86. Patient has history of liver cirrhosis as well as metastatic melanoma. She is currently maintained on 12 mics of Levophed as well as vasopressin. She is on Cardizem drip for A. fib. Patient had a left-sided thoracentesis yesterday with 1150 mL removed. She is scheduled for right-sided thoracentesis today. Patient is awake and alert. Feels nauseous. Denies chest pain. Urine output has been about 20-30 mL an hour. Vital signs are stable. Currently on vasopressors. General: The patient appeared well nourished and normally developed. HEENT: Head exam is unremarkable. Neck is without jugular venous distension. LUNGS: Breath sounds decreased. HEART: Irregular rate and rhythm. ABDOMEN: Nontender. Distention noted. EXTREMITITES: 1+ edema. Objective - Vital Signs Vital signs: Vital Signs Temp 98.0 F 03/12/18 08:00 Pulse 79 03/12/18 08:00 Resp 20 03/12/18 08:00 BP 107/42 03/12/18 08:00 Pulse Ox 92 L 03/12/18 08:00 Intake & Output 03/11/18 03/12/18 03/12/18 18:59 06:59 18:59 Intake Total 524.532 908.847 87.329 Output Total 1730 580 60 Balance -1205.468 328.847 27.329 Weight 89 kg Intake: IV 247 209 38 Sodium Chloride 0.9% 1, 130 110 20 000 ml @ 10 mls/hr IV . Q24H ELIJAH Rx#:[id number] Sodium Chloride 0.9% 99 117 99 18 ml @ 0.03 UNITS/MIN 9 mls /hr IV .Q11H7M ELIJAH with Vasopressin 20 unit Rx#: [id number] Intake, IV Titration 147.532 159.847 49.329 Amount Diltiazem 50 mg In Sodium 60 50 Chloride 0.9% 40 ml @ 5 MG/HR 5 mls/hr IV .Q10H ELIJAH Rx#:[id number] Norepinephrine 16 mg In 87.532 109.847 49.329 Sodium Chloride 0.9% 250 ml @ Titrate IV .Q0M ELIJAH Rx#:[id number] Oral 130 540 Output: Urine 430 580 60 Emesis 200 Other 1100 Other: Voiding Method Indwelling Catheter Indwelling Catheter Indwelling Catheter # Bowel Movements 1 - Labs CBC & Chem 7: 03/12/18 07:42 03/12/18 07:42 Labs: Abnormal Lab Results - Last 24 Hours (Table) 03/12/18 03/12/18 03/12/18 Range/Units 04:53 07:42 07:42 Hct 47.5 H (34.0-46.0) % MCV 100.9 H (80.0-100.0) fL RDW 20.1 H (11.5-15.5) % Plt Count 87 L (150-450) k/uL Lymphocytes # 0.7 L (1.0-4.8) k/uL PT 20.8 H (9.0-12.0) sec INR 2.3 H (<1.2) APTT 42.3 H (22.0-30.0) sec Sodium (137-145) mmol/L BUN (7-17) mg/dL Creatinine (0.52-1.04) mg/dL Glucose (74-99) mg/dL Phosphorus 5.5 H (2.5-4.5) mg/dL Magnesium 3.2 H (1.6-2.3) mg/dL Total Bilirubin (0.2-1.3) mg/dL AST (14-36) U/L ALT (9-52) U/L Alkaline Phosphatase (38-126) U/L Albumin (3.5-5.0) g/dL 03/12/18 Range/Units 07:42 Hct (34.0-46.0) % MCV (80.0-100.0) fL RDW (11.5-15.5) % Plt Count (150-450) k/uL Lymphocytes # (1.0-4.8) k/uL PT (9.0-12.0) sec INR (<1.2) APTT (22.0-30.0) sec Sodium 136 L (137-145) mmol/L BUN 92 H* (7-17) mg/dL Creatinine 2.86 H (0.52-1.04) mg/dL Glucose 139 H (74-99) mg/dL Phosphorus (2.5-4.5) mg/dL Magnesium (1.6-2.3) mg/dL Total Bilirubin 14.9 H (0.2-1.3) mg/dL AST 129 H (14-36) U/L ALT 115 H (9-52) U/L Alkaline Phosphatase 225 H (38-126) U/L Albumin 2.6 L (3.5-5.0) g/dL Microbiology - Last 24 Hours (Table) 03/11/18 14:39 Gram Stain - Preliminary Pleural Fluid Body Fluid Culture - Preliminary 03/10/18 18:57 Urine Culture - Final Urine,Catheterized 03/08/18 14:27 Blood Culture - Preliminary Blood No Growth after 72 hours 03/10/18 09:50 Gram Stain - Preliminary Peritoneal Fluid Body Fluid Culture - Preliminary Assessment and Plan Plan: Assessment: 1. Acute kidney injury secondary to ATN secondary to hypotension. Baseline creatinine is 1. Renal function a little worse today with creatinine at 2.86. 2. Ascites status post paracentesis on March 10 at 4.4 L removed. Patient did receive 25 g of albumin after the procedure. 3. Alcohol-induced liver cirrhosis. GI following. 4. Metastatic melanoma. 5. Atrial fibrillation with RVR maintained on IV Cardizem. 6. Hypotension maintained on Levophed as well as vasopressin. 7. Hypervolemic hyponatremia. Improved. 8. Pleural effusions status post left-sided thoracentesis on March 11 with 1150 mL removed. Scheduled for right-sided thoracentesis today. 9. Hyperphosphatemia secondary to acute kidney injury. Plan: Maintain midodrine 10 mg 3 times daily. Wean vasopressors. 25 g of albumin today. Lasix 60 mg IV once after albumin infusion complete. Continue to monitor renal function and urine output. Avoid nephrotoxic agents and hypotensive episodes. Monitor phosphorus. If it rises further, will add phosphate binder.
[2018-03-12] MEDS: cefTRIAXone IN SWFI 2,000 MG/20 ML SYRINGE IVP SCH (09:04)
[2018-03-12] MEDS: LACTULOSE 20 GM/30 ML CUP PO SCH (09:05)
[2018-03-12] MEDS: MIDODRINE 5 MG TAB PO SCH ×3 (09:05→16:28)
--- NOTE | 2018-03-12 09:17 | XR ---
EXAMINATION TYPE: XR chest 1V portable DATE OF EXAM: 03/12/2018 Comparison: 03/11/2018 Clinical History: 62-year-old female status post right thoracentesis Findings: ACDF hardware. Right anterior chest wall injection port with catheter tip at the mid SVC level. Heart upper limits of normal in size. Near complete resolution of previous right pleural effusion. Small l eft pleural effusion remains. Diffuse interstitial and patchy confluent airspace opacities particular ly in the right perihilar region. No appreciable pneumothorax. ACDF hardware. Impression: 1. Significant improvement in the patient's previous right effusion status post thoracentesis. No navdeep reciable pneumothorax. 2. A small left effusion remains. 3. Continued patchy and confluent interstitial and airspace disease particularly on the right.
[2018-03-12] MEDS: ALBUMIN HUMAN 25% 50 ML in EMPTY BAG 1 BAG IVPB SCH ×2 (09:38→10:25)
[2018-03-12] MEDS: PHYTONADIONE ORAL 5 MG/5 ML ORAL.SYRG PO SCH (09:40)
[2018-03-12] MEDS: DILTIAZEM 50 MG in SODIUM CHLORIDE 0.9% 40 ML IV SCH (09:40)
[2018-03-12] MEDS ORDERED: FUROSEMIDE 10 MG/ML 10 ML VIAL IV ONE (11:00)
[2018-03-12] MEDS: THIAMINE 100 MG TAB PO SCH ×2 (11:45→16:28)
[2018-03-12] MEDS: FOLIC ACID 1 MG TAB PO SCH (11:45)
--- NOTE | 2018-03-12 12:05 | P.PN ---
Subjective Progress Note Date: 03/12/18 Principal diagnosis: Acute hypoxic respiratory failure and bilateral pleural effusions with ascites and elevated liver enzymes with coagulopathy. This is a very pleasant 62-year-old female patient who follows with Dr. trevor Negrete as her primary care physician. She has a history of fibromyalgia, osteoarthritis, migraines, depression. She was has a history of left submammary chest wall malignant melanoma and she had a wide excision on 2016. She had been seen at the [facility] for further skin excision in May 2017 and lymph nodes were positive for metastatic disease. She had been receiving Opdivo. We had seen the patient approximate one month ago here at the hospital for an acute hypoxic respiratory failure secondary to large bilateral pleural effusions. She is status post right-sided thoracentesis with 1650 MLS of dark turbulent fluid removed. Fluid was negative for malignancy. She was discharged on 01/28/2018. She presented here to the emergency room yesterday with complaints of increasing shortness of breath that had been worsening over the past several days. She had been scheduled for a paracentesis secondary to cirrhosis in the outpatient setting. Abdominal ultrasound revealed moderate fluid on the right of an incomplete study secondary to vomiting. Chest x-ray shows bilateral infiltrates with pleural effusions and mild venous congestion. Computed tomography scan of the brain revealed mild cerebral atrophy but otherwise negative. She is seen today in consultation on the oncology unit. She is currently quite weak and fatigued. She is dyspneic with minimal exertion. She has saturating in the low 90s on 4 L/m per nasal cannula. She's been afebrile. Slightly tachycardic. Slightly tachypneic. White count 5.0. Hemoglobin 14.6. INR 2.2. Creatinine 1.57. AST 284, ALT 161. Urine has many bacteria. Patient was reevaluated today on 03/11/2018, she was transferred yesterday to the ICU, she was noted to have poor urine output, blood pressure was getting very low, and this followed her large volume paracentesis. Upon transfer to the ICU , patient was given albumin infusions, started on vasopressin also on levo fed, blood pressure remains marginal. She is presently on 3 g of levo fed, and she is also on 0.03 units of vasopressin. Urine output remains marginal, patient was given Lasix by nephrology, and not much of a great response. Her chest x- ray is showing worsening bilateral pleural effusions and I plan to perform thoracentesis on this patient, she received vitamin K for elevated INR, and I will likely perform the thoracentesis either today later today or tomorrow. I called in family to be at bedside, was updated on her condition, and I have discussed her overall poor prognostic picture. At this point the and the family are discussing the patient the issue of CODE STATUS, the seems to be inclined to agree with DO NOT RESUSCITATE CODE STATUS, but that is yet to be confirmed with the patient and other family members. Patient seems to be frail, looks chronically ill, on high flow nasal cannula, O2 saturations are marginal. I believe the thoracentesis may help at least improve her pulmonary status. WBC count is 7.4 hemoglobin is 14.4. Basic metabolic profile is relatively normal except for anion gap metabolic acidosis, BUN is 78 creatinine is 2.74 patient is known to have history of alcohol-induced liver cirrhosis, and that is being addressed by gastroenterology. So far she had 4.4 L removed from her abdomen patient remains on Cardizem at 5 mg per hour for A. fib/RVR. Patient was reevaluated today on 03/12/2018, she is basically about the same, looks chronically ill, frail, remains on high flow nasal cannula, and she is still on 13 g of levo fed. Yesterday I performed left-sided thoracentesis, and today I performed a right sided thoracentesis. Her O2 saturation improved right after the thoracentesis and hopefully we'll be able to titrate the FiO2 down. Renal functioning continues to deteriorate, patient is on levo fed and on vasopressin. Patient is awake, she feels nauseated, urine output is marginal in the range of 22 3 0 mL per hour. CBC is relatively normal INR remains 2.3 worsening renal profile noted BUN is 92 creatinine is 2.86. Liver enzymes are basically about the same, total bilirubin is 14.9. Objective - Vital Signs Vital signs: Vital Signs Temp 98.0 F 03/12/18 08:00 Pulse 81 03/12/18 11:30 Resp 26 H 03/12/18 11:30 BP 96/41 03/12/18 11:30 Pulse Ox 94 L 03/12/18 11:30 Intake & Output 03/11/18 03/12/18 03/12/18 18:59 06:59 18:59 Intake Total 524.532 908.847 416.792 Output Total 1730 580 140 Balance -1205.468 328.847 276.792 Weight 89 kg Intake: IV 247 209 95 Sodium Chloride 0.9% 1, 130 110 50 000 ml @ 10 mls/hr IV . Q24H ELIJAH Rx#:[id number] Sodium Chloride 0.9% 99 117 99 45 ml @ 0.03 UNITS/MIN 9 mls /hr IV .Q11H7M ELIJAH with Vasopressin 20 unit Rx#: [id number] Intake, IV Titration 147.532 159.847 221.792 Amount Albumin Human 25% 50 ml 100 In Empty Bag 1 bag @ 100 mls/hr IVPB Q1H ELIJAH Rx#: [id number] Diltiazem 50 mg In Sodium 60 50 50 Chloride 0.9% 40 ml @ 5 MG/HR 5 mls/hr IV .Q10H ELIJAH Rx#:[id number] Norepinephrine 16 mg In 87.532 109.847 71.792 Sodium Chloride 0.9% 250 ml @ Titrate IV .Q0M ELIJAH Rx#:[id number] Oral 130 540 100 Output: Urine 430 580 140 Emesis 200 Other 1100 Other: Voiding Method Indwelling Catheter Indwelling Catheter Indwelling Catheter # Bowel Movements 1 - Exam - Constitutional General appearance: average body habitus - EENT Eyes: EOMI, PERRLA positive icterus. ENT: hearing grossly normal Ears: bilateral: normal - Neck Neck: normal ROM Carotids: bilateral: upstroke normal Thyroid: bilateral: normal size - Respiratory Respiratory: Diminished breath sound bilaterally with dullness, no rhonchi and no wheezes. - Cardiovascular Rhythm: irregular, irregular rhythm. Heart sounds: normal: S1, S2 - Gastrointestinal General gastrointestinal: distended, positive ascites, diminished bowel sounds. - Integumentary Integumentary: normal turgor, 3+ bipedal edema noted. - Neurologic Neurologic: CNII-XII intact - Musculoskeletal Musculoskeletal: generalized weakness - Psychiatric Psychiatric: A&O x's 3 - Labs CBC & Chem 7: 03/12/18 07:42 03/12/18 07:42 Labs: Abnormal Lab Results - Last 24 Hours (Table) 03/12/18 03/12/18 03/12/18 Range/Units 04:53 07:42 07:42 Hct 47.5 H (34.0-46.0) % MCV 100.9 H (80.0-100.0) fL RDW 20.1 H (11.5-15.5) % Plt Count 87 L (150-450) k/uL Lymphocytes # 0.7 L (1.0-4.8) k/uL PT 20.8 H (9.0-12.0) sec INR 2.3 H (<1.2) APTT 42.3 H (22.0-30.0) sec Sodium (137-145) mmol/L BUN (7-17) mg/dL Creatinine (0.52-1.04) mg/dL Glucose (74-99) mg/dL Phosphorus 5.5 H (2.5-4.5) mg/dL Magnesium 3.2 H (1.6-2.3) mg/dL Total Bilirubin (0.2-1.3) mg/dL AST (14-36) U/L ALT (9-52) U/L Alkaline Phosphatase (38-126) U/L Albumin (3.5-5.0) g/dL 03/12/18 Range/Units 07:42 Hct (34.0-46.0) % MCV (80.0-100.0) fL RDW (11.5-15.5) % Plt Count (150-450) k/uL Lymphocytes # (1.0-4.8) k/uL PT (9.0-12.0) sec INR (<1.2) APTT (22.0-30.0) sec Sodium 136 L (137-145) mmol/L BUN 92 H* (7-17) mg/dL Creatinine 2.86 H (0.52-1.04) mg/dL Glucose 139 H (74-99) mg/dL Phosphorus (2.5-4.5) mg/dL Magnesium (1.6-2.3) mg/dL Total Bilirubin 14.9 H (0.2-1.3) mg/dL AST 129 H (14-36) U/L ALT 115 H (9-52) U/L Alkaline Phosphatase 225 H (38-126) U/L Albumin 2.6 L (3.5-5.0) g/dL Microbiology - Last 24 Hours (Table) 03/11/18 14:39 Gram Stain - Preliminary Pleural Fluid Body Fluid Culture - Preliminary 03/10/18 18:57 Urine Culture - Final Urine,Catheterized 03/08/18 14:27 Blood Culture - Preliminary Blood No Growth after 72 hours 03/10/18 09:50 Gram Stain - Preliminary Peritoneal Fluid Body Fluid Culture - Preliminary Assessment and Plan Assessment: #1 Acute hypoxic respiratory failure secondary to bilateral neural effusions/ infiltrates. She did undergo a right-sided thoracentesis in January 2018 that was negative for malignancy. There was noted mediastinal adenopathy and new left upper lobe and lingular centimeter pulmonary nodules on a computed tomography scan in 01/25/2018. Patient underwent left sided thoracentesis on 03/11/2018, right-sided thoracentesis on 04/08/2018. Both pleural effusions on both sides were cleared completely post procedures. #2 Abdominal distention secondary to ascites with elevated LFTs and coagulopathy with an INR 2.3. Ascites seems to be getting worse since she had paracentesis a few days ago. #3 Altered mental status secondary to above. Computed tomography scan negative for any acute abnormalities. #4 Left submammary chest wall melanoma with metastasis. Had undergone surgical resection at the [facility]. Stage III currently receiving adjuvant immunotherapy in the form of Opdivo. #5 Urinary tract infection. #6 Fibromyalgia. #7 History of chronic tobacco dependence. #8 History of migraines. #9 Anxiety/depression. #10 chronic liver cirrhosis with ascites and bilateral pleural effusions. #11 atrial fibrillation with RVR presently on Cardizem drip. #12 hypotension, multifactorial,, doubt sepsis, patient has intravascular depletion, relative hypovolemia, hypoproteinemia, and the hypotension has worsened since she had paracentesis. Not to mention the patient has atrial fibrillation with RVR requiring Cardizem. Strongly doubt SBP, patient is on antibiotics empirically anyway. Recommendation: I had a long discussion with the patient, her , and her sister at bedside, discussed his overall condition, explained to them that her condition seems to be quite terminal, patient and family members are in agreement to DO NOT RESUSCITATE CODE STATUS. Continue present supportive care measures, prognosis is extremely poor. Time with Patient: Less than 30
--- NOTE | 2018-03-12 12:11 | PN ---
PROGRESS NOTE The patient is a 62-year-old pleasant white female with history of metastatic melanoma and possibly cirrhosis of the liver admitted to hospital with shortness of breath, not feeling well, new onset ascites, as well as bilateral pleural effusion. She underwent large volume paracentesis 2 days ago and 4 L of fluid was removed and yesterday she underwent thoracentesis on both sides by Dr. Perez and approximately 1 to 1.4 L was removed. The patient remains in the intensive care unit. She is feeling better today. Still has mild abdominal discomfort. Remains lethargic. Shortness of breath has improved. Remains on low-dose Levophed. Urine output is gradually decreasing. She had about 2 bowel movements daily. Presently on lactulose 30 mL twice daily. PHYSICAL EXAMINATION: She is quite lethargic. VITAL SIGNS: Stable. Blood pressure is 110/47, pulse rate 80, temperature 98.7. Respirations 25. HEENT examination is unremarkable. Conjunctivae pink. Sclerae deeply icteric. Oral cavity, no lesions. NECK: No JVD or lymph node enlargement. Chest was clear to auscultation. HEART: Regular rate and rhythm. Abdomen is soft. Mild diffuse tenderness. Slightly distended. EXTREMITIES: 2+ pedal edema. SKIN: No rashes. NEUROLOGIC: Awake, but lethargic. Oriented to name and place. LABS: From today WBC 7.6, hemoglobin 15.8, platelets are 87,000. INR 2.3, T-bili 14.9, AST 129, ALT 115, alk phos 95. IMPRESSION: 1. Metastatic melanoma undergoing chemotherapy. 2. Alcoholic cirrhosis of the liver with severe liver decompensation, possible superimposed medication induced hepatitis/chemotherapy-induced hepatitis. LFTs are gradually worsening. Coagulopathy is also gradually worsening. All indicative of decompensated liver disease. 3. New onset ascites and bilateral pleural effusion, probably related to underlying liver disease. However, cytology is still pending to rule out metastatic malignancy. She is being covered with broad-spectrum antibiotics for possible spontaneous bacterial peritonitis as the cultures from the ascites fluid are still pending at the time of this dictation. 4. Mild worsening coagulopathy. 5. Acute renal failure. Nephrology following the patient closely. RECOMMENDATION: 1. Continue with broad-spectrum antibiotics. 2. Continue with symptomatic and supportive care. 3. Prognosis is extremely guarded. Patient is presently NO CODE. Thank you for this consultation. MMODL / IJN: [id number] /
--- NOTE | 2018-03-12 13:17 | PCN ---
PROCEDURE NOTE OPERATIVE REPORT: Right-sided thoracentesis. PREOPERATIVE DIAGNOSIS: Right pleural effusion. POSTOPERATIVE DIAGNOSIS: Right pleural effusion. ANESTHESIA USED: 2 mL of 1% lidocaine. PROCEDURE: Patient was placed in a sitting upright position, leaning forward on a table. The patient had her area below the scapula prepared in a sterile fashion and drapes applied. The area at the level of the 8th intercostal space and tip of the scapula was locally anesthetized with lidocaine. Then, a 26-gauge needle was inserted into the pleural space, the fluid was localized with a needle. Then a stab wound was made at the same site, and a 8-Polish catheter and needle were inserted at the same site, advanced into the pleural space until the fluid was obtained. Then, the catheter was advanced over the needle and the needle was pulled out of the pleural space. Free- flowing fluid was removed, roughly 1400 mL of dark yellow fluid removed from the pleural space and was actually discarded since we had previous pleural effusion sent for different diagnostic studies. Procedure was well tolerated. No evidence of any immediate complications. A chest x-ray was ordered postoperatively that showed no evidence of any pneumothorax. There was almost near complete clearance of all the fluid in the right pleural space. MMODL / IJN: [id number] /
--- NOTE | 2018-03-12 15:31 | P.PN ---
Subjective Progress Note Date: 03/12/18 Principal diagnosis: Acute Renal Failure, Hypotension, Coagulopathy Patient remains under care ICU, Stable at this time. Family at bedside. Long discussion with patients family today and Patient regarding goals of care. COnsult has been placed for hospice information meeting Objective - Vital Signs Vital signs: Vital Signs Temp 98.0 F 03/12/18 08:00 Pulse 83 03/12/18 09:00 Resp 25 H 03/12/18 09:00 BP 84/44 03/12/18 09:00 Pulse Ox 98 03/12/18 09:00 Intake & Output 03/11/18 03/12/18 03/12/18 18:59 06:59 18:59 Intake Total 524.532 908.847 106.329 Output Total 1730 580 90 Balance -1205.468 328.847 16.329 Weight 89 kg Intake: IV 247 209 57 Sodium Chloride 0.9% 1, 130 110 30 000 ml @ 10 mls/hr IV . Q24H ELIJAH Rx#:[id number] Sodium Chloride 0.9% 99 117 99 27 ml @ 0.03 UNITS/MIN 9 mls /hr IV .Q11H7M ELIJAH with Vasopressin 20 unit Rx#: [id number] Intake, IV Titration 147.532 159.847 49.329 Amount Diltiazem 50 mg In Sodium 60 50 Chloride 0.9% 40 ml @ 5 MG/HR 5 mls/hr IV .Q10H ELIJAH Rx#:[id number] Norepinephrine 16 mg In 87.532 109.847 49.329 Sodium Chloride 0.9% 250 ml @ Titrate IV .Q0M ELIJAH Rx#:[id number] Oral 130 540 Output: Urine 430 580 90 Emesis 200 Other 1100 Other: Voiding Method Indwelling Catheter Indwelling Catheter Indwelling Catheter # Bowel Movements 1 - Exam Constitutional General appearance: cooperative, no acute distress - EENT Eyes: poor dentition, scleral icterus ENT: hard of hearing, NA/AT, pharyngeal erythema - Neck Neck: normal ROM - Respiratory Respiratory: bilateral: diminished, wheezing - Cardiovascular Rhythm: regular Heart sounds: normal: S1, S2 - Gastrointestinal General gastrointestinal: distended, organomegaly, tenderness - Integumentary Integumentary: jaundiced, pale - Neurologic Neurologic: focal deficits - Musculoskeletal Musculoskeletal: strength equal bilaterally - Psychiatric lethargy, confused poor historian - Labs CBC & Chem 7: 03/12/18 07:42 03/12/18 07:42 Labs: Abnormal Lab Results - Last 24 Hours (Table) 03/12/18 03/12/18 03/12/18 Range/Units 04:53 07:42 07:42 Hct 47.5 H (34.0-46.0) % MCV 100.9 H (80.0-100.0) fL RDW 20.1 H (11.5-15.5) % Plt Count 87 L (150-450) k/uL Lymphocytes # 0.7 L (1.0-4.8) k/uL PT 20.8 H (9.0-12.0) sec INR 2.3 H (<1.2) APTT 42.3 H (22.0-30.0) sec Sodium (137-145) mmol/L BUN (7-17) mg/dL Creatinine (0.52-1.04) mg/dL Glucose (74-99) mg/dL Phosphorus 5.5 H (2.5-4.5) mg/dL Magnesium 3.2 H (1.6-2.3) mg/dL Total Bilirubin (0.2-1.3) mg/dL AST (14-36) U/L ALT (9-52) U/L Alkaline Phosphatase (38-126) U/L Albumin (3.5-5.0) g/dL 03/12/18 Range/Units 07:42 Hct (34.0-46.0) % MCV (80.0-100.0) fL RDW (11.5-15.5) % Plt Count (150-450) k/uL Lymphocytes # (1.0-4.8) k/uL PT (9.0-12.0) sec INR (<1.2) APTT (22.0-30.0) sec Sodium 136 L (137-145) mmol/L BUN 92 H* (7-17) mg/dL Creatinine 2.86 H (0.52-1.04) mg/dL Glucose 139 H (74-99) mg/dL Phosphorus (2.5-4.5) mg/dL Magnesium (1.6-2.3) mg/dL Total Bilirubin 14.9 H (0.2-1.3) mg/dL AST 129 H (14-36) U/L ALT 115 H (9-52) U/L Alkaline Phosphatase 225 H (38-126) U/L Albumin 2.6 L (3.5-5.0) g/dL Microbiology - Last 24 Hours (Table) 03/11/18 14:39 Gram Stain - Preliminary Pleural Fluid Body Fluid Culture - Preliminary 03/10/18 18:57 Urine Culture - Final Urine,Catheterized 03/08/18 14:27 Blood Culture - Preliminary Blood No Growth after 72 hours 03/10/18 09:50 Gram Stain - Preliminary Peritoneal Fluid Body Fluid Culture - Preliminary Assessment and Plan Plan: Assessment and Recommendations 1. Metastatic Melanoma: Stable on Opdivo - Opdivo on hold for recent hospitalizations and underlying liver disease not associated with Melanoma or immunotherapy 2. Acute Metabolic Encephalopathy likely secondary to underlying liver cirrhosis - alcohol related 3. Acute Hypoxic Respiratory Failure 4. Recurrent PLeural Effusions: - Pathology negativie for malignancy 5. Coagulopathy secondary to underlying liver decompensation - Agree with VItamin K 6. Hyperbilirubinemia - >Intrahepatic Cholestasis? 7. Acute Renal Failure - Multifactoral Defer acute medical care and supportive measures to ICU and Primary team Long discussion with patient and family, also discussed case with Dr. Burgess. GOals of care and information related to palliative versus hospice care provided. I have consulted hospice for informational meeting, reasonable option with co-morbidities and patients persistently decling status. Family and patient agree to consultation. Physician Attestation: I have completed the full history and physical of this patient and agree with above dictation by Josi Jackson NP. Dictated as a scribe
[2018-03-12 16:17] VITALS: BP 102/42; PULSE 77; RESP 28
--- NOTE | 2018-03-12 22:20 | PN ---
PROGRESS NOTE DATE OF SERVICE: March 12, 2018. PRESENTING COMPLAINT: Short of breath. INTERVAL HISTORY: This patient is currently in the ICU. History of metastatic melanoma. Also has hepatic cirrhosis and multiple medical problems. The patient also being treated for spontaneous bacterial peritonitis and also the patient was treated for hypotensive shock. The patient had right-sided thoracentesis [address] Julio yesterday, and 1100 mL was removed today. The patient remains on 8 L of high-flow oxygen. Only tolerating some popsicles. Current drips include IV Cardizem for atrial fibrillation, IV vasopressin and IV norepinephrine. Earlier yesterday patient spoke with the patient's family and made the patient n.p.o. The patient is tired, able to answer some simple questions. REVIEW OF SYSTEMS: Attempted for constitutional, cardiovascular, GI, pulmonary, patient is rather lethargic, not able to answer much questions. CURRENT MEDICATIONS: Reviewed that include IV Cardizem, IV vasopressin, IV norepinephrine and 8 L/L of oxygen. PHYSICAL EXAMINATION: VITAL SIGNS: On examination temperature 98, pulse 81, respiration 33, blood pressure 102/50, pulse ox 93 percent on 8 L high-flow. GENERAL APPEARANCE: Sitting up lethargic, awake. EYES: Pupils equal. Conjunctivae pale. HEENT: External appearance of nose and ears normal. Oral cavity normal. NECK JVD unable to assess. Mass not palpable. RESPIRATORY effort increased. LUNGS: Diminished breath sounds. CARDIOVASCULAR: Heart sounds irregular. Edema present. ABDOMEN: Soft, distended. Liver and spleen not palpable. Dressing over the tap site. PSYCHIATRY: Lethargic. May answer a question here and there. INVESTIGATIONS: White count 7.6, hemoglobin 15.8, platelets 87. Protime 20.8, potassium 4.7, BUN 92, creatinine 2.86. ASSESSMENT: 1. Malignant melanoma, metastatic, treated on suppressive therapy with OPDIVO. 2. Hepatic cirrhosis, likely secondary to alcoholic liver disease resulting in portal hypertension and ascites. 3. Acute hypoxic respiratory failure from pleural effusion. Patient remains on 8 L of high-flow oxygen. 4. Acute metabolic encephalopathy, likely hepatic, slow to respond. 5. Chronic fibromyalgia. 6. Cervical and lumbar degenerative joint disease. 7. Depression, not otherwise specified. 8. At the baseline, uses a full 4 prong cane at home. 9. Hyperbilirubinemia from intrahepatic cholestasis. 10.Prolonged pro-time from vitamin K deficiency and liver disease. 11.Obesity; BMI 30.7. 12.Acute renal failure, combination of hepatorenal syndrome and hypoperfusion worsening. 13.Possible spontaneous bacterial peritonitis. 14.Hypotensive shock persists, patient requiring vasopressin IV Levophed. PLAN: Patient remains in the ICU. Family is coming up. Dr. Soto's VICE PRESIDENT OF NEWS did inform me that they did speak to the patient and family and now hospice is being consulted. In the meantime, pressor support is to continue. Prognosis remains poor. MMODL / IJN: [id number] /
[2018-03-13 13:11] LABS: Total Protein, Body Fluid 410.4 mg/dL
--- NOTE | 2018-03-14 15:20 | CDI ---
Last Revision, June 2017 Documentation Clarification Form Date: 03/14/18 From: Ida Andre Kathrin De La Cruz, Service Car Driver Hours-8:30 am & 5 pm MErik Admit Date: 03/08/2018 4:40:00 PM Patient Name: Gia Lund Visit Number: [id number] Discharge Date: 03/12/18 ATTENTION: The Clinical Documentation Specialists (CDI) and [facility] Coding Staff appreciate your assistance in clarifying documentation. Please respond to the clarification below the line at the bottom and electronically sign. The CDI & [facility] Coding staff will review the response and follow-up if needed. Please note: Queries are made part of the Legal Health Record. If you have any questions, please contact the author of this message via ITS. Sean Gonzalez MD Atrial fibrillation is documented in Dr Anh moy, Prog notes 03/11 and 03/12. EKG/telemetry: atrial fibrillation w RVR on 03/11 Treatment: IV Cardizerm In your professional opinion, can you please clarify the type of atrial fibrillation, if known? Chronic/Permanent Paroxysmal Persistent Other, please specify Unable to determine NO atrial fibrillation MTDD
--- NOTE | 2018-03-14 21:26 | DS ---
DISCHARGE SUMMARY DATE OF ADMISSION: 03/08/2018. DATE OF DISCHARGE: 03/12/2018 FINAL DIAGNOSES: 1. Malignant melanoma, metastatic, treatment suppressive therapy, Opdivo. 2. Alcoholic cirrhosis resulting in portal hypertension and worsening ascites. 3. Acute hypoxic respiratory failure from pleural effusion. Patient on 8L of high- flow oxygen. 4. Acute metabolic encephalopathy, likely hepatic. 5. Chronic fibromyalgia. 6. Cervical and lumbar degenerative joint disease. 7. Depression, not otherwise specified. 8. Chronic gait dysfunction, uses a 4-pronged cane at baseline. 9. Hyperbilirubinemia from intrahepatic cholecystitis. 10.Prolonged ProTime from vitamin K deficiency and liver disease. 11.Obesity; BMI 30.7. 12.Acute renal failure, combination of hyporenal syndrome and hypoperfusion. 13.Possible spontaneous bacterial peritonitis. 14.Hypertensive shock requiring IV vasopressin and Levophed. CONSULTATIONS: Dr. Perez from Critical Care, Dr. Valdes from GI, Dr. Rosen from Oncology, Dr. Kamara from Nephrology. HOSPITAL COURSE: This is a patient with metastatic melanoma, please see my H and P for more details, who did go to [facility] in [place] for melanoma treatment that basically progressed. The patient presented with ascites, pleural effusion, continued to get worse. The patient did have both thoracentesis and paracentesis, but continued to decline. Family then decided to make the patient comfort care under hospice for worsening symptoms. The patient can now be discharged to inpatient hospice service. I talked to the hospice nurse and the staff and the family. DISPOSITION: Inpatient hospice at [facility]. EXAMINATION: The patient lethargic, distended, edema present plane. MEDICATIONS: Hospice medications. DISCUSSION AND DISCHARGE PLANNING: More than 35 minutes. MMODL / IJN: [id number] /
== END 2018-03-12 16:30 | disposition hospice, inpatient (51) | DRG 843 ==
LOC: EC 13:28 → 5ONC 16:40 → 6ICU 03-10 17:20
PROVIDERS: ADMIT Hospitalist; ATTEND Hospitalist
PROC: 0D9670Z Drainage of Stomach with Drainage Device, Via Natural or Artificial Opening (ICD-10-PCS; 2018-03-10)
PROC: 30243K1 Transfusion of Nonautologous Frozen Plasma into Central Vein, Percutaneous Approach (ICD-10-PCS; 2018-03-10)
PROC: 0W9B3ZZ Drainage of Left Pleural Cavity, Percutaneous Approach (ICD-10-PCS; principal; 2018-03-11)
PROC: 0W993ZZ Drainage of Right Pleural Cavity, Percutaneous Approach (ICD-10-PCS; 2018-03-12)
DX: C79.9 Secondary malignant neoplasm of unspecified site (principal); J96.01 Acute respiratory failure with hypoxia; K83.1 Obstruction of bile duct; N17.0 Acute kidney failure with tubular necrosis; K76.7 Hepatorenal syndrome; K65.2 Spontaneous bacterial peritonitis; R57.9 Shock, unspecified; C77.9 Secondary and unspecified malignant neoplasm of lymph node, unspecified; D68.4 Acquired coagulation factor deficiency; E87.1 Hypo-osmolality and hyponatremia; J91.8 Pleural effusion in other conditions classified elsewhere; K76.6 Portal hypertension; E87.2 Acidosis; N39.0 Urinary tract infection, site not specified; Z66 Do not resuscitate; Z51.5 Encounter for palliative care; K72.90 Hepatic failure, unspecified without coma; K70.31 Alcoholic cirrhosis of liver with ascites; K75.9 Inflammatory liver disease, unspecified; E83.39 Other disorders of phosphorus metabolism; K81.9 Cholecystitis, unspecified; E87.70 Fluid overload, unspecified; E56.1 Deficiency of vitamin K; D53.9 Nutritional anemia, unspecified; F32.9 Major depressive disorder, single episode, unspecified; F41.9 Anxiety disorder, unspecified; M47.812 Spondylosis without myelopathy or radiculopathy, cervical region; M47.816 Spondylosis without myelopathy or radiculopathy, lumbar region; M79.7 Fibromyalgia; I10 Essential (primary) hypertension; T45.1X5A Adverse effect of antineoplastic and immunosuppressive drugs, initial encounter; R26.9 Unspecified abnormalities of gait and mobility; R91.8 Other nonspecific abnormal finding of lung field; G43.909 Migraine, unspecified, not intractable, without status migrainosus; M19.91 Primary osteoarthritis, unspecified site; E66.9 Obesity, unspecified; Z68.31 Body mass index [BMI] 31.0-31.9, adult; Z79.899 Other long term (current) drug therapy; Z86.010 Personal history of colon polyps; Z85.820 Personal history of malignant melanoma of skin; Z87.891 Personal history of nicotine dependence; Z98.51 Tubal ligation status; Z88.5 Allergy status to narcotic agent; Z91.048 Other nonmedicinal substance allergy status; Z80.0 Family history of malignant neoplasm of digestive organs
CPT/HCPCS: 36415; 49083; 70450; 71045; 71046; 74018; 76604; 76705; 76770; 80053; 81001; 82140; 82550; 82553; 82803; 82945; 83615; 83735; 84100; 84157; 84484; 85025; 85049; 85610; 85730; 86850; 86900; 86901; 87040; 87070; 87075; 87086; 87205; 88108; 88305; 88341; 88342; 89050; 93005; 94640; 94660; 94760; 96374; 99285

== ENCOUNTER 2018-03-12 16:40 | Inpatient (IN) | payer MEDICAID ==
[2018-03-12] MEDS ORDERED: ONDANSETRON 4 MG/2 ML VIAL IVP PRN (16:47)
[2018-03-12] MEDS ORDERED: LORazepam 2 MG/ML INJ IV PRN (16:47)
[2018-03-12] MEDS ORDERED: ACETAMINOPHEN SUPPOSITORY 650 MG SUPP RECTAL PRN (16:47)
[2018-03-12 16:52] VITALS: BMI 38.7
[2018-03-12] MEDS ORDERED: BISACODYL 10 MG SUPP RECTAL PRN (16:53)
[2018-03-12] MEDS: HYDROmorphone 1 MG/ML 1 ML SYRINGE IVP PRN (20:59)
[2018-03-13] MEDS: HYDROmorphone 1 MG/ML 1 ML SYRINGE IVP PRN (08:31)
[2018-03-13 08:38] VITALS: TEMP 97.4
[2018-03-13 16:11] VITALS: BP 88/40; PULSE 72
[2018-03-13] MEDS: HYDROmorphone (PF) 50 MG in SODIUM CHLORIDE 0.9% 245 ML IV SCH (19:55)
[2018-03-14] MEDS: HYDROmorphone 1 MG/ML 1 ML SYRINGE IVP PRN ×2 (03:53→08:57)
[2018-03-14] MEDS: HYDROmorphone (PF) 50 MG in SODIUM CHLORIDE 0.9% 245 ML IV SCH ×2 (11:11→14:47)
[2018-03-14 16:48] VITALS: RESP 6
--- NOTE | 2018-03-14 23:47 | PN ---
PROGRESS NOTE DATE OF SERVICE: 03/14/2018 PRESENT COMPLAINT: Tired, short of breath. INTERVAL HISTORY: This is a patient currently under inpatient hospice care for symptom control. Lying in bed, encephalopathic. and probably son at the bedside. PHYSICAL EXAMINATION: On examination, temperature 97.4, respiration 28, pulse 67, blood pressure 88/40. The patient lethargic. LUNGS: Decreased breath sounds. ABDOMEN: Distended. ASSESSMENT: 1. Malignant melanoma, metastatic. 2. Alcoholic cirrhosis. 3. Symptom control. PLAN: Continue hospice, medication and symptom control. The patient's is happy with the care. The patient is on Dilaudid and Ativan. Questions were answered. MMODL / IJN: [id number] /
[2018-03-15] MEDS: ATROPINE OPHTH SOLN 1% 5ML BTL SUBLINGUAL PRN ×2 (14:30→18:30)
== END 2018-03-15 22:57 | disposition expired | DRG 951 ==
LOC: 6ICU 16:40 → 4MS4W 03-13 17:09
PROVIDERS: ADMIT Hospitalist; ATTEND Hospitalist
DX: Z51.5 Encounter for palliative care (principal); K65.2 Spontaneous bacterial peritonitis; C79.9 Secondary malignant neoplasm of unspecified site; K76.6 Portal hypertension; N17.9 Acute kidney failure, unspecified; I16.1 Hypertensive emergency; C43.9 Malignant melanoma of skin, unspecified; Z66 Do not resuscitate; K70.31 Alcoholic cirrhosis of liver with ascites; K72.90 Hepatic failure, unspecified without coma; M79.7 Fibromyalgia; M47.812 Spondylosis without myelopathy or radiculopathy, cervical region; M47.816 Spondylosis without myelopathy or radiculopathy, lumbar region; F32.9 Major depressive disorder, single episode, unspecified; R26.89 Other abnormalities of gait and mobility; E66.9 Obesity, unspecified; Z79.899 Other long term (current) drug therapy; Z68.38 Body mass index [BMI] 38.0-38.9, adult; Z87.891 Personal history of nicotine dependence; Z86.010 Personal history of colon polyps; Z80.0 Family history of malignant neoplasm of digestive organs